=== PATIENT | female | born 1940 | race American Indian/Alaskan Native ===

== ENCOUNTER 2016-11-23 02:09 | Inpatient (IN) | payer MEDICARE ==
[2016-11-23] MEDS ORDERED: TYLENOL PO ONE (02:40)
[2016-11-23 03:11] LABS: Basophils % (Auto) 0.1 % (0.0-1.8); Hemoglobin 12.4 gm/dl (10.1-14.3); Mean Corpuscular HGB Conc 34 % (30-34); Mean Corpuscular Hemoglobin 31 pg (28-32); Mean Corpuscular Volume 93 fl (79-97); Platelet Count 235 K/mm3 (140-440); Red Blood Count 3.98 M/mm3 (3.65-5.03); Red Cell Distribution Width 13.4 % (13.2-15.2); White Blood Count 10.9 K/mm3 (4.5-11.0)
[2016-11-23 03:32] LABS: BUN/Creatinine Ratio 26.66; Blood Urea Nitrogen 24 mg/dL (7-17); Calcium 8.2 mg/dL (8.4-10.2); Carbon Dioxide 26 mmol/L (22-30); Chloride 91.3 mmol/L (98-107); Glucose 215 mg/dL (65-100); Potassium 3.7 mmol/L (3.6-5.0); Sodium 130 mmol/L (137-145)
[2016-11-23 03:33] LABS: Anion Gap 16 mmol/L
[2016-11-23 12:31] LABS: Bilirubin,Urine NEG (Negative); Blood,Urine MOD (Negative); Ketones,Urine NEG (Negative); Leukocyte Esterase,Urine LG (Negative); Mucus,Urine 2+ /HPF; Nitrite,Urine NEG (Negative); Urobilinogen,Urine < 2.0 mg/dL (<2.0)
[2016-11-23 12:48] LABS: WBC,Urine > 182.0 /HPF (0.0-6.0)
[2016-11-23] MEDS ORDERED: ROCEPHIN/NS 1 GM/50 ML 50 ML IV ONE (12:56)
[2016-11-23] MEDS ORDERED: NACL 0.9% 1000 ML IV ONE (12:57)
--- NOTE | 2016-11-23 12:58 | Emergency Department Report ---
HPI - General Chief Complaint: Dizziness Time Seen by Provider: 11/23/16 12:42 - HPI HPI: Chief complaint: "I have a bladder infection" HPI: Patient is a 76-year-old female with a history of hypertension and diabetes who presents with frequency and urgency and right lower quadrant pain along with lightheadedness on standing for the last 4 days. Patient states she has lost weight over the last 2 weeks and has had a decreased appetite for the last week. Patient also states she's had intermittent lip swelling and facial swelling as well as urticarial rashes to her legs and torso. Patient is on lisinopril. Patient is not currently having a rash or swelling. Patient has a slight nonproductive cough and does continue to smoke although less than usual. Patient does not have any chest pain. Patient has felt lightheaded on standing for the last 4 days. There has been no vomiting or diarrhea. Mode of arrival: [private car] Source: [Patient] [old chart] [family member] Began: over the last 2 weeks Duration: Dysuria and freq over the last week Context: patient is an insulin dependent diabetic Quality: RLQ pain which has resolved Severity: 0 out of 10 Improved with:nothing Worsened with: standing worsens dizziness Associated signs and symptoms: Fever, decreased appetite, lightheadedness, generalized malaise, weight loss, frequency and urgency. Urticarial rash which has resolved as well as occasional angioedema of the face. ED Past Medical Hx - Past Medical History Hx Hypertension: Yes Hx Diabetes: Yes Hx Arthritis: Yes Additional medical history: Hypercholesterolemia - Surgical History Additional Surgical History: Ectopic - Social History Smoking Status: Current Every Day Smoker Substance Use Type: None - Medications Home Medications: Home Medications Medication Instructions Recorded Confirmed Last Taken Type Lisinopril [Zestril TAB] 20 mg PO DAILY 12/20/13 11/23/16 04/20/15 History Pravastatin Sodium [Pravastatin] 10 mg PO HS 12/20/13 11/23/16 04/20/15 History Sitagliptin Phosphate [Januvia] 100 mg PO DAILY 12/20/13 11/23/16 04/20/15 History amLODIPine [Norvasc] 5 mg PO DAILY 12/20/13 11/23/16 04/20/15 History Aspirin [Aspirin BABY CHEW TAB] 81 mg PO DAILY 04/20/15 11/23/16 04/20/15 22:35 History Hydrochlorothiazide [Hctz] 25 mg PO QDAY 04/20/15 11/23/16 04/20/15 History Insulin Detemir [Levemir Flextouch] 21 unit SQ QHS 04/20/15 11/23/16 04/20/15 History ED Review of Systems ROS: Stated complaint: LIGHTHEADED/DIZZINESS Other details as noted in HPI ROS Constitutional: No fever ENT: No uri symptoms Cardiovascular: No chest pain Respiratory: No sob or cough GI: No vomiting or diarrhea : See HPI Skin: See HPI Neuro: No focal weakness or numbness Psych: No depression Jaime/lymph: No edema Physical Exam - Physical Exam Vital Signs: Vital Signs 11/23/16 11/23/16 11/23/16 02:26 05:49 11:47 Temperature 101.9 F H 98.1 F Pulse Rate 74 75 Respiratory 18 15 Rate Blood Pressure 127/67 Blood Pressure 97/53 [Left] O2 Sat by Pulse 100 96 Oximetry Physical Exam: GENERAL: The patient is a thin elderly -[place] female no acute distress. Patient is slightly orthostatic and dizzy on standing. HEENT: Normocephalic. Atraumatic. Extraocular motions are intact. Patient has moist mucous membranes. NECK: Supple. No meningitic signs are noted. There is no adenopathy noted. CHEST/LUNGS: Clear to auscultation. There is no respiratory distress noted. HEART/CARDIOVASCULAR: Regular. There is no tachycardia. There is no gallop rub or murmur. ABDOMEN: Abdomen is soft, nontender. Patient has normal bowel sounds. There is no abdominal distention. SKIN: There is no rash. There is no edema. There is no diaphoresis. NEURO: The patient is awake, alert, and oriented. The patient is cooperative. The patient has no focal neurologic deficits. The patient has normal speech. MUSCULOSKELETAL: There is no tenderness or deformity. There is no limitation range of motion. There is no evidence of acute injury. ED Course Vital Signs 11/23/16 11/23/16 11/23/16 02:26 05:49 11:47 Temperature 101.9 F H 98.1 F Pulse Rate 74 75 Respiratory 18 15 Rate Blood Pressure 127/67 Blood Pressure 97/53 [Left] O2 Sat by Pulse 100 96 Oximetry - Reevaluation(s) Reevaluation #1: 11/23/16 13:09 Patient given a liter of normal saline, a urine culture will be collected and given a gram of IV Rocephin. ED Medical Decision Making - Lab Data Result diagrams: 11/23/16 02:58 11/23/16 02:58 Laboratory Tests 11/23/16 11/23/16 11/23/16 02:58 05:45 08:34 Calcium 8.2 L Troponin T < 0.010 < 0.010 < 0.010 Laboratory Tests 11/23/16 12:02 Ur Leukocyte Esterase Lg Urine WBC (Auto) > 182.0 H Urine RBC (Auto) 24.0 Urine WBC Clumps 3+ Urine Mucus 2+ - EKG Data -: EKG Interpreted by Me EKG shows normal: sinus rhythm Rate: normal (87) - EKG Data When compared to previous EKG there are: no significant change Interpretation: other (possible left atrial enlargement) Critical care attestation.: If time is entered above; I have spent that time in minutes in the direct care of this critically ill patient, excluding procedure time. ED Disposition Clinical Impression: Urinary tract infection Qualifiers: Urinary tract infection type: acute pyelonephritis Qualified Code(s): N10 - Acute pyelonephritis Disposition: OP ADMITTED IP TO THIS HOSP Is pt being admited?: Yes Does the pt Need Aspirin: Yes Condition: Fair Time of Disposition: 13:11 (admit to the hospitalist)
[2016-11-23] MEDS ORDERED: ASPIRIN PO ONE (13:12)
--- NOTE | 2016-11-23 13:27 | History and Physical Report ---
History of Present Illness Date of examination: 11/23/16 Date of admission: 11/23/16 Chief complaint: Pain in the RT side for 4 days History of present illness: Miss Palencia is a 76 yo AAF who presented to the ER with a 4 day h/o sticking pain in the RT side; no fever; urinary frequency but no burning; no nausea or vomiting; she was seen in the ER and was noted to have a fever and U/A suggestive of UTI; she was given IV rocephin Past History Past Medical History: diabetes, hypertension, hyperlipidemia Past Surgical History: Other (ectopic ) Social history: smoking, full code. denies: alcohol abuse, prescription drug abuse, IV drug use Family history: hypertension Medications and Allergies Allergies Allergy/AdvReac Type Severity Reaction Status Date / Time bee venom (honey bee) Allergy Anaphylaxis Verified 07/05/15 13:30 iodine Allergy Swelling Verified 07/05/15 13:30 Penicillins Allergy Rash Verified 07/05/15 13:30 Home Medications Medication Instructions Recorded Confirmed Last Taken Type Lisinopril [Zestril TAB] 20 mg PO DAILY 12/20/13 11/23/16 04/20/15 History Pravastatin Sodium [Pravastatin] 10 mg PO HS 12/20/13 11/23/16 04/20/15 History Sitagliptin Phosphate [Januvia] 100 mg PO DAILY 12/20/13 11/23/16 04/20/15 History amLODIPine [Norvasc] 5 mg PO DAILY 12/20/13 11/23/16 04/20/15 History Aspirin [Aspirin BABY CHEW TAB] 81 mg PO DAILY 04/20/15 11/23/16 04/20/15 22:35 History Hydrochlorothiazide [Hctz] 25 mg PO QDAY 04/20/15 11/23/16 04/20/15 History Insulin Detemir [Levemir Flextouch] 21 unit SQ QHS 04/20/15 11/23/16 04/20/15 History Active Meds: Active Medications Ceftriaxone Sodium (Rocephin/Ns 1 Gm/50 Ml) 50 mls @ 100 mls/hr IV ONCE ONE Stop: 11/23/16 13:25 Review of Systems All systems: negative Constitutional: no weight loss, no weight gain, no fever, no chills, no sweats Ears, nose, mouth and throat: no ear pain, no ear discharge, no tinnitis, no decreased hearing Breasts: normal Cardiovascular: no chest pain, no orthopnea, no palpitations Respiratory: no cough, no cough with sputum, no excessive sputum, no hemoptysis , no shortness of breath Gastrointestinal: other (as in [facility]PC) Genitourinary Female: no urinary frequency, no urgency Rectal: no pain, no incontinence, no bleeding Musculoskeletal: no neck stiffness, no neck pain, no shooting arm pain, no arm numbness/tingling, no low back pain Integumentary: no rash, no pruritis, no redness, no sores Neurological: no head injury, no transient paralysis, no paralysis, no weakness Psychiatric: no anxiety, no memory loss, no change in sleep habits, no sleep disturbances Endocrine: no cold intolerance, no heat intolerance, no polyphagia, no excessive thirst, no polydipsia, no polyuria Hematologic/Lymphatic: no easy bruising, no easy bleeding Allergic/Immunologic: angioedema, other (reported that last week she has swelling of her lips and mouth for several days with hives; now better ) Exam - Constitutional Vitals: Temp Pulse Resp BP Pulse Ox 98.1 F 75 18 97/53 100 11/23/16 05:49 11/23/16 05:49 11/23/16 12:53 11/23/16 05:49 11/23/16 12:53 General appearance: Present: no acute distress (pleasant) - EENT Eyes: Present: PERRL, EOM intact. Absent: scleral icterus ENT: hearing intact, clear oral mucosa, no oropharyngeal erythema, no poor dentition - Neck Neck: Present: supple, normal ROM. Absent: enlarged thyroid, masses or JVD - Respiratory Respiratory effort: normal Respiratory: negative: diminished, rales, rhonchi, wheezing - Cardiovascular Rhythm: regular Heart Sounds: Present: S1 & S2. Absent: gallop - Extremities Extremities: no ischemia, pulses intact, pulses symmetrical, No edema Peripheral Pulses: within normal limits - Abdominal General gastrointestinal: Present: soft, non-tender, tender (RT renal angle tenderness) Female genitourinary: Present: deferred - Rectal Rectal Exam: deferred - Integumentary Integumentary: Present: clear - Musculoskeletal Musculoskeletal: strength equal bilaterally - Psychiatric Psychiatric: appropriate mood/affect, intact judgment & insight, cooperative - Neurologic Neurologic: CNII-XII intact, moves all extremities Results - Labs CBC & Chem 7: 11/23/16 02:58 11/23/16 02:58 Labs: Abnormal lab results 11/23/16 11/23/16 11/23/16 Range/Units 02:58 02:58 12:02 Lymph % (Auto) 8.9 L (13.4-35.0) % [place] % (Auto) 10.5 H (0.0-7.3) % Lymph # 1.0 L (1.2-5.4) K/mm3 [place] # 1.1 H (0.0-0.8) K/mm3 Seg Neutrophils % 80.5 H (40.0-70.0) % Seg Neutrophils # 8.8 H (1.8-7.7) K/mm3 Sodium 130 L (137-145) mmol/L Chloride 91.3 L (98-107) mmol/L BUN 24 H (7-17) mg/dL Glucose 215 H (65-100) mg/dL Calcium 8.2 L (8.4-10.2) mg/dL Urine WBC (Auto) > 182.0 H (0.0-6.0) /HPF - Imaging and Cardiology Chest x-ray: image reviewed (hyperinflation; no infiltrates ) Assessment and Plan 1. Rt pyelonephritis- will admit as an inpatient as more than 2 MN are required for treatment; f/u urine c/s; blood c/s; cont IV rocephin' IV morphine as needed for pain 2. DM 2 - restart insulin and oral regime; monitor accuchecks; sliding scale insulin; consistent carb diet 3. Benign HTN - restart home meds except lisinopril ( angioedema) 4. Nicotine dependence- smoking cessation; counselled about adverse effects and methods to stop; nicotine patch 5. Hyponatremia / hypochloremia- will start NS; monitor level; d/c HXTZ as per home med 6. Reosolved angioedema due to Lisinopril- d/c lisinopril as per home med; patient and daughter counselled 7. DVT prophylaxis- heparin
--- NOTE | 2016-11-23 13:53 | XRay Report ---
Single view chest: History: Cough. Findings: Borderline cardiomegaly. Trachea is midline. No consolidation, pneumothorax or pleural effusion. Impression: No acute cardiopulmonary findings.
[2016-11-23] MEDS ORDERED: REGLAN IV PRN (15:49)
[2016-11-23] MEDS ORDERED: ZOFRAN IV PRN (15:49)
[2016-11-23] MEDS ORDERED: D50W (25GM) IV PRN (15:49)
[2016-11-23] MEDS: NOVOLOG SUB-Q SCH ×2 (17:38→23:14)
[2016-11-23] MEDS: HABITROL TD SCH (18:00)
[2016-11-23] MEDS ORDERED: NON-FORMULARY (Pravastatin Sodium [Pravastatin] 10 MG) PO SCH (22:00)
[2016-11-23] MEDS ORDERED: INSULIN DETEMIR 21 UNIT SQ SCH (22:00)
--- NOTE | 2016-11-23 22:06 | Admit Criteria Form ---
Admission Criteria Documentation: PYELONEPHRITIS, ACUTE Clinical Indications for Admission to Inpatient Care (Place 'X' for any and all applicable criteria): Admission is indicated for ANY ONE of the following 1,2,3,4,5 [ X]I. Outpatient treatment has failed or is not feasible (eg, multidrug- resistant organism).5 [ ]II. beyond 24 weeks' gestation6 [ ]III. Hemodynamic instability [ ]IV. Immunocompromised state (eg, AIDS, diabetes, sickle cell disease) [ ]V. Known renal or urologic abnormalities (eg, indwelling catheter, structural abnormalities, renal calculi, urinary stent, previous urologic surgery) [ ]. Condition that requires drainage procedure, including ANY ONE of the following: [ ]a) Urinary obstruction [ ]b) Pyelitis [ ]c) Pyonephrosis [ ]d) Renal or perinephric abscess [ ]e) Emphysematous pyelonephritis 7 [ ]VII. Inpatient admission required rather than observation care (Also use Pyelonephritis, Acute: Observation Care Criteria as appropriate) because of ANY ONE of the following: [ ]a) High fever or infection requiring inpatient admission as indicated by ANY ONE of [id number] [ ]A. Documented bacteremia [ ]B. Temp>104.9 [id number] (oral) [ ]C. Temp>103.10F (oral) or <96.80F (rectal) that does not respond to all emergency treatment [ ]b) Acute renal failure [ ]c) Other significant finding or clinical condition judged not to be within the scope of observation care [ ]d) IV fluid to replace significant ongoing (eg, for over 24hrs) losses (> 3 L/m2 per day) [ ]e) Other condition,treatment or monitoring requiring inpatient admission The original [employer] content created by [employer] has been revised. The portions of the content which have been revised are identified through the use of italic text or in bold, and [employer] [facility] has neither reviewed nor approved the modified material. All other unmodified content is copyright [employer]. Please see references footnoted in the original [employer] edition 2016 Admission Criteria Met: Yes
[2016-11-23] MEDS: HEPARIN SUB-Q SCH (23:15)
[2016-11-23] MEDS: LEVEMIR SUB-Q SCH (23:16)
[2016-11-23] MEDS: ZOCOR PO SCH (23:17)
[2016-11-24] MEDS: NOVOLOG SUB-Q SCH ×4 (07:31→22:07)
[2016-11-24 07:45] LABS: Basophils % (Auto) 0.3 % (0.0-1.8); Eosinophils % (Auto) 0.2 % (0.0-4.3); Hematocrit 33.3 % (30.3-42.9); Hemoglobin 11.2 gm/dl (10.1-14.3); Mean Corpuscular HGB Conc 34 % (30-34); Mean Corpuscular Hemoglobin 31 pg (28-32); Mean Corpuscular Volume 92 fl (79-97); Platelet Count 226 K/mm3 (140-440); Red Blood Count 3.64 M/mm3 (3.65-5.03); Red Cell Distribution Width 13.7 % (13.2-15.2); White Blood Count 8.5 K/mm3 (4.5-11.0)
[2016-11-24 08:23] LABS: Anion Gap 17 mmol/L; BUN/Creatinine Ratio 27.14; Blood Urea Nitrogen 19 mg/dL (7-17); Carbon Dioxide 24 mmol/L (22-30); Chloride 99.7 mmol/L (98-107); Glucose 103 mg/dL (65-100); Potassium 3.8 mmol/L (3.6-5.0); Sodium 137 mmol/L (137-145)
[2016-11-24] MEDS: NORVASC PO SCH (09:41)
[2016-11-24] MEDS: ROCEPHIN/NS 1 GM/50 ML 50 ML IV SCH (09:53)
[2016-11-24] MEDS: TRADJENTA PO SCH (09:56)
[2016-11-24] MEDS: BABY ASPIRIN PO SCH (09:56)
[2016-11-24] MEDS: HABITROL TD SCH (09:57)
[2016-11-24] MEDS ORDERED: NON-FORMULARY (Sitagliptin Phosphate [Januvia] 100 MG) PO SCH (10:00)
[2016-11-24] MEDS: HEPARIN SUB-Q SCH ×2 (10:00→21:59)
[2016-11-24] MEDS: NACL 0.9% 1000 ML 1,000 ML IV SCH (10:07)
--- NOTE | 2016-11-24 11:32 | Progress Note ---
Assessment and Plan Assessment and plan: 1. Right pyelonephritis - UA suggestive of UTI, blood and urine cultures pending; continue Rocephin 2. Hypernatremia/hyperchloremia - resolved with IV fluids 3. Hypertension - lisinopril discontinued due to recent angioedema and started on amlodipine; monitor BP 4. Diabetes - continue long-acting insulin, Accu-Cheks and SSI as needed 5. Hyperlipidemia - on statin 6. Nicotine dependence - on nicotine patch; counseled regarding importance of quitting 7. DVT prophylaxis - heparin subcutaneous History Interval history: low grade fever this morning Hospitalist Physical - Constitutional Vitals: Temp Pulse Resp BP Pulse Ox 99.9 F H 72 16 104/54 96 11/24/16 08:01 11/24/16 08:01 11/24/16 08:01 11/24/16 09:41 11/24/16 08:01 General appearance: Present: no acute distress (pleasant) - EENT Eyes: Present: PERRL, EOM intact. Absent: scleral icterus, conjunctival injection - Neck Neck: Present: supple, normal ROM. Absent: masses or JVD - Respiratory Respiratory effort: normal Respiratory: bilateral: CTA, negative: rales, rhonchi, wheezing - Cardiovascular Rhythm: regular Heart Sounds: Present: S1 & S2. Absent: systolic murmur - Extremities Extremities: no ischemia - Abdominal General gastrointestinal: soft, non-tender, non-distended, normal bowel sounds - Psychiatric Psychiatric: cooperative - Neurologic Neurologic: CNII-XII intact, no focal deficits Results - Labs CBC & Chem 7: 11/24/16 07:21 11/24/16 07:21 Labs: Laboratory Last Values WBC 8.5 K/mm3 (4.5-11.0) 11/24/16 07:21 RBC 3.64 M/mm3 (3.65-5.03) L 11/24/16 07:21 Hgb 11.2 gm/dl (10.1-14.3) 11/24/16 07:21 Hct 33.3 % (30.3-42.9) 11/24/16 07:21 MCV 92 fl (79-97) 11/24/16 07:21 MCH 31 pg (28-32) 11/24/16 07:21 MCHC 34 % (30-34) 11/24/16 07:21 RDW 13.7 % (13.2-15.2) 11/24/16 07:21 Plt Count 226 K/mm3 (140-440) 11/24/16 07:21 Lymph % (Auto) 13.9 % (13.4-35.0) 11/24/16 07:21 [place] % (Auto) 9.7 % (0.0-7.3) H 11/24/16 07:21 Eos % (Auto) 0.2 % (0.0-4.3) 11/24/16 07:21 Baso % (Auto) 0.3 % (0.0-1.8) 11/24/16 07:21 Lymph # 1.2 K/mm3 (1.2-5.4) 11/24/16 07:21 [place] # 0.8 K/mm3 (0.0-0.8) 11/24/16 07:21 Eos # 0.0 K/mm3 (0.0-0.4) 11/24/16 07:21 Baso # 0.0 K/mm3 (0.0-0.1) 11/24/16 07:21 Seg Neutrophils % 75.9 % (40.0-70.0) H 11/24/16 07:21 Seg Neutrophils # 6.5 K/mm3 (1.8-7.7) 11/24/16 07:21 Sodium 137 mmol/L (137-145) D 11/24/16 07:21 Potassium 3.8 mmol/L (3.6-5.0) 11/24/16 07:21 Chloride 99.7 mmol/L (98-107) 11/24/16 07:21 Carbon Dioxide 24 mmol/L (22-30) 11/24/16 07:21 Anion Gap 17 mmol/L 11/24/16 07:21 BUN 19 mg/dL (7-17) H 11/24/16 07:21 Creatinine 0.7 mg/dL (0.7-1.2) 11/24/16 07:21 Estimated GFR > 60 ml/min 11/24/16 07:21 BUN/Creatinine Ratio 27.14 % 11/24/16 07:21 Glucose 103 mg/dL (65-100) H 11/24/16 07:21 POC Glucose 170 (70-105) H 11/24/16 10:58 Calcium 8.0 mg/dL (8.4-10.2) L 11/24/16 07:21 Troponin T < 0.010 ng/mL (0.00-0.029) 11/23/16 08:34 Urine Color [place] (Yellow) 11/23/16 12:02 Urine Turbidity Turbid (Clear) 11/23/16 12:02 Urine pH 5.0 (5.0-7.0) 11/23/16 12:02 Ur Specific [place] 1.014 (1.003-1.030) 11/23/16 12:02 Urine Protein 100 mg/dl mg/dL (Negative) 11/23/16 12:02 Urine Glucose (UA) Neg mg/dL (Negative) 11/23/16 12:02 Urine Ketones Neg mg/dL (Negative) 11/23/16 12:02 Urine Blood Mod (Negative) 11/23/16 12:02 Urine Nitrite Neg (Negative) 11/23/16 12:02 Urine Bilirubin Neg (Negative) 11/23/16 12:02 Urine Urobilinogen < 2.0 mg/dL (<2.0) 11/23/16 12:02 Ur Leukocyte Esterase Lg (Negative) 11/23/16 12:02 Urine WBC (Auto) > 182.0 /HPF (0.0-6.0) H 11/23/16 12:02 Urine RBC (Auto) 24.0 /HPF (0.0-6.0) 11/23/16 12:02 Urine WBC Clumps 3+ /HPF 11/23/16 12:02 Urine Mucus 2+ /HPF 11/23/16 12:02 - Imaging and Cardiology Chest x-ray: image reviewed (no acute process)
[2016-11-24] MEDS: TYLENOL PO PRN (18:49)
[2016-11-24] MEDS: LEVEMIR SUB-Q SCH (21:54)
[2016-11-24] MEDS: ZOCOR PO SCH (21:54)
[2016-11-25] MEDS: NACL 0.9% 1000 ML 1,000 ML IV SCH ×2 (02:14→14:45)
[2016-11-25] MEDS: NOVOLOG SUB-Q SCH ×4 (08:05→23:34)
[2016-11-25] MEDS: TRADJENTA PO SCH (09:26)
[2016-11-25] MEDS: NORVASC PO SCH (09:28)
[2016-11-25] MEDS: ROCEPHIN/NS 1 GM/50 ML 50 ML IV SCH (09:28)
[2016-11-25] MEDS: HABITROL TD SCH (09:28)
[2016-11-25] MEDS: BABY ASPIRIN PO SCH (09:28)
[2016-11-25] MEDS: HEPARIN SUB-Q SCH ×2 (09:47→22:59)
--- NOTE | 2016-11-25 11:38 | Progress Note ---
Assessment and Plan Assessment and plan: 1. Right pyelonephritis/cystitis - UA suggestive of UTI, urine culture growing GNR, blood cultures negative to date; continue Rocephin 2. Hypernatremia/hyperchloremia - resolved with IV fluids 3. Hypertension - lisinopril discontinued due to recent angioedema and started on amlodipine; monitor BP 4. Diabetes - continue long-acting insulin, Accu-Cheks and SSI as needed 5. Hyperlipidemia - on statin 6. Nicotine dependence - on nicotine patch; counseled regarding importance of quitting 7. DVT prophylaxis - heparin subcutaneous History Interval history: doing well, no complaints Hospitalist Physical - Constitutional Vitals: Temp Pulse Resp BP Pulse Ox 99.1 F 74 18 139/70 95 11/25/16 08:11 11/25/16 08:11 11/25/16 08:43 11/25/16 09:28 11/25/16 08:11 General appearance: Present: no acute distress (pleasant) - EENT Eyes: Present: PERRL, EOM intact - Neck Neck: Present: supple, normal ROM. Absent: masses or JVD - Respiratory Respiratory effort: normal Respiratory: bilateral: CTA, negative: rales, rhonchi, wheezing - Cardiovascular Rhythm: regular Heart Sounds: Present: S1 & S2. Absent: systolic murmur - Extremities Extremities: no ischemia - Abdominal General gastrointestinal: soft, non-tender, non-distended, normal bowel sounds - Integumentary Integumentary: Present: warm, dry. Absent: jaundice, rash - Psychiatric Psychiatric: cooperative - Neurologic Neurologic: CNII-XII intact, no focal deficits Results - Labs CBC & Chem 7: 11/24/16 07:21 11/24/16 07:21 Labs: Laboratory Last Values WBC 8.5 K/mm3 (4.5-11.0) 11/24/16 07:21 RBC 3.64 M/mm3 (3.65-5.03) L 11/24/16 07:21 Hgb 11.2 gm/dl (10.1-14.3) 11/24/16 07:21 Hct 33.3 % (30.3-42.9) 11/24/16 07:21 MCV 92 fl (79-97) 11/24/16 07:21 MCH 31 pg (28-32) 11/24/16 07:21 MCHC 34 % (30-34) 11/24/16 07:21 RDW 13.7 % (13.2-15.2) 11/24/16 07:21 Plt Count 226 K/mm3 (140-440) 11/24/16 07:21 Lymph % (Auto) 13.9 % (13.4-35.0) 11/24/16 07:21 [place] % (Auto) 9.7 % (0.0-7.3) H 11/24/16 07:21 Eos % (Auto) 0.2 % (0.0-4.3) 11/24/16 07:21 Baso % (Auto) 0.3 % (0.0-1.8) 11/24/16 07:21 Lymph # 1.2 K/mm3 (1.2-5.4) 11/24/16 07:21 [place] # 0.8 K/mm3 (0.0-0.8) 11/24/16 07:21 Eos # 0.0 K/mm3 (0.0-0.4) 11/24/16 07:21 Baso # 0.0 K/mm3 (0.0-0.1) 11/24/16 07:21 Seg Neutrophils % 75.9 % (40.0-70.0) H 11/24/16 07:21 Seg Neutrophils # 6.5 K/mm3 (1.8-7.7) 11/24/16 07:21 Sodium 137 mmol/L (137-145) D 11/24/16 07:21 Potassium 3.8 mmol/L (3.6-5.0) 11/24/16 07:21 Chloride 99.7 mmol/L (98-107) 11/24/16 07:21 Carbon Dioxide 24 mmol/L (22-30) 11/24/16 07:21 Anion Gap 17 mmol/L 11/24/16 07:21 BUN 19 mg/dL (7-17) H 11/24/16 07:21 Creatinine 0.7 mg/dL (0.7-1.2) 11/24/16 07:21 Estimated GFR > 60 ml/min 11/24/16 07:21 BUN/Creatinine Ratio 27.14 % 11/24/16 07:21 Glucose 103 mg/dL (65-100) H 11/24/16 07:21 POC Glucose 71 (70-105) 11/25/16 06:17 Calcium 8.0 mg/dL (8.4-10.2) L 11/24/16 07:21 Troponin T < 0.010 ng/mL (0.00-0.029) 11/23/16 08:34 Urine Color [place] (Yellow) 11/23/16 12:02 Urine Turbidity Turbid (Clear) 11/23/16 12:02 Urine pH 5.0 (5.0-7.0) 11/23/16 12:02 Ur Specific [place] 1.014 (1.003-1.030) 11/23/16 12:02 Urine Protein 100 mg/dl mg/dL (Negative) 11/23/16 12:02 Urine Glucose (UA) Neg mg/dL (Negative) 11/23/16 12:02 Urine Ketones Neg mg/dL (Negative) 11/23/16 12:02 Urine Blood Mod (Negative) 11/23/16 12:02 Urine Nitrite Neg (Negative) 11/23/16 12:02 Urine Bilirubin Neg (Negative) 11/23/16 12:02 Urine Urobilinogen < 2.0 mg/dL (<2.0) 11/23/16 12:02 Ur Leukocyte Esterase Lg (Negative) 11/23/16 12:02 Urine WBC (Auto) > 182.0 /HPF (0.0-6.0) H 11/23/16 12:02 Urine RBC (Auto) 24.0 /HPF (0.0-6.0) 11/23/16 12:02 Urine WBC Clumps 3+ /HPF 11/23/16 12:02 Urine Mucus 2+ /HPF 11/23/16 12:02
[2016-11-25] MEDS: ZOCOR PO SCH (22:55)
[2016-11-25] MEDS: LEVEMIR SUB-Q SCH (22:59)
[2016-11-26] MEDS: NACL 0.9% 1000 ML 1,000 ML IV SCH (05:35)
[2016-11-26] MEDS: NOVOLOG SUB-Q SCH ×2 (08:19→12:28)
[2016-11-26] MEDS: TYLENOL PO PRN (08:25)
[2016-11-26] MEDS: BABY ASPIRIN PO SCH (10:52)
[2016-11-26] MEDS: TRADJENTA PO SCH (10:52)
[2016-11-26] MEDS: HEPARIN SUB-Q SCH (10:52)
[2016-11-26] MEDS: NORVASC PO SCH (10:52)
[2016-11-26] MEDS: HABITROL TD SCH (10:53)
[2016-11-26] MEDS: ROCEPHIN/NS 1 GM/50 ML 50 ML IV SCH (10:53)
--- NOTE | 2016-11-26 12:50 | Discharge Summary ---
Providers - Providers Date of Admission: 11/23/16 13:11 Date of discharge: 11/26/16 Attending physician: MAX AMEZCUA Primary care physician: NORMA BREEN Hospitalization Condition: Fair Hospital course: HPI: Miss Palencia is a 76 yo AAF who presented to the ER with a 4 day h/o sticking pain in the RT side; no fever; urinary frequency but no burning; no nausea or vomiting; she was seen in the ER and was noted to have a fever and U/A suggestive of UTI; she was started on IV rocephin in the ER. Diacharge Diagnosis amd management per problem: 1. Right pyelonephritis/cystitis - UA was suggestive of UTI, urine culture growing GNR, blood cultures negative to date; symptom improved with iv Rocephin. discharged with po levaquin. 2. Hypernatremia/hyperchloremia - resolved with IV fluids 3. Hypertension - lisinopril discontinued due to recent angioedema and started on amlodipine; Will continue amlodipine and HCTZ 4. Diabetes - continue long-acting insulin 5. Hyperlipidemia - on statin 6. Nicotine dependence - on nicotine patch; counseled regarding importance of quitting Disposition: DC/TX HOME UNDER HOME HEALTH Time spent for discharge: 36 minutes Core Measure Documentation - Palliative Care Palliative Care/ Comfort Measures: Not Applicable - Core Measures Any of the following diagnoses?: none Exam - Physical Exam Narrative exam: General appearance: Present: no acute distress (pleasant) - EENT Eyes: Present: PERRL, EOM intact - Neck Neck: Present: supple, normal ROM. Absent: masses or JVD - Respiratory Respiratory effort: normal Respiratory: bilateral: CTA, negative: rales, rhonchi, wheezing - Cardiovascular Rhythm: regular Heart Sounds: Present: S1 & S2. Absent: systolic murmur - Extremities Extremities: no ischemia - Abdominal General gastrointestinal: soft, non-tender, non-distended, normal bowel sounds - Integumentary Integumentary: Present: warm, dry. Absent: jaundice, rash - Psychiatric Psychiatric: cooperative - Neurologic Neurologic: CNII-XII intact, no focal deficits - Constitutional Vitals: Temp Pulse Resp BP Pulse Ox 98.1 F 69 15 154/72 96 11/26/16 07:45 11/26/16 07:45 11/26/16 07:45 11/26/16 10:52 11/26/16 07:45 Plan Activity: advance as tolerated, fall precautions Weight Bearing Status: Non-Weight Bearing Diet: low cholesterol, low salt Follow up with: NORMA BREEN MD [Primary Care Provider] - 3-5 Days Prescriptions: Hydrochlorothiazide [HCTZ] 50 mg PO DAILY #30 tablet Levofloxacin [Levaquin] 750 mg PO QDAY #5 tablet
[2016-11-26 13:45] VITALS: BP 158/71
--- NOTE | 2016-11-29 08:09 | Query-Infection ---
"Deaamy Henderson Date:_11/29/16 Combine Mechanic/CDS:Simon/Anshul Zhou Phone#:[phone] Exercise your independent professional judgment when responding to this query. Questions asked do not imply a particular answer is desired or expected. We greatly appreciate your clarification on this issue. Clinical Documentation States: 76 Y/O Female admitted on 11/23/16 with Hx. of DM, HTN presents with 4 day history of sticking pain in the right side, increased urinary frequency, fever in ER. Clinical findings show: (please check applicable parameters) Infection, known /suspected, with some of the following indicators; Specify the infection: Pyelonephritis/UTI Temp: 101.9 HR: 100 RR: 26 Given IV Ceftriaxone 3 General parameters [x] Fever (core temp >38.30C or 100.40F) [ ] Hypothermia (core temp <36C) [x] Heart rate >90 bpm [x] Tachypnea: >20 bpm or pCO2 < 32 mmHg [ ] Altered mental status [ ] Significant edema / +ve fluid balance (>20 ml/kg 24 h) [ ] Hyperglycemia (Bl. glucose >110 mg/dl) w/o diabetes Inflammatory parameters [ ] Leukocytosis (white blood cell count >12,000/l) [ ] Leukopenia (white blood cell count <4,000/l) [ ] Bandemia (immature WBC > 10%) [ ] Leucocyte Left Shift [ ] Plasma procalcitonin>2 SD above the normal value Hemodynamic and tissue perfusion parameters [ ] Arterial hypotension(SBP <90 mmHg, MAP <70 mmHg,or a SBP drop >40 mmHg in adults) [ ] Hyperlactatemia (>3 mmol/l) [ ] Anion Gap (> 11mEG/l) [ ] Decreased capillary refill or mottling Organ dysfunction parameters [ ] Arterial hypoxemia (PaO2/FIO2 <300) [ ] Creatinine increase =0.5 mg/dl [ ] Acute oliguria (urine output <0.5 ml | kg |h or 45 mM/l for at least 2 hrs) [ ] Coagulation abnormalities (INR >1.5 or activated partial thromboplastin time >60 s) [ ] Ileus (absent roya wel sounds) [ ] Thrombocytopenia (platelet count <100,000/l) [ ] Hyperbilirubinemia (plasma total bilirubin >4 mg/dl) According to the clinical indications above, can Bacteremia be further specified? If so, please indicate below and in your Progress Notes and/ or Discharge Summary. Indicate if the condition was present on admission. PHYSICIAN RESPONSE: [x] Sepsis [ ] Severe Sepsis [ ] Septic Shock [ ] Septicemia [ ] Sepsis now resolved [ ] SIRS due to non-infectious cause with organ dysfunction [ ] SIRS due to non-infectious cause without organ dysfunction [ ] Other: [ ] Comment/Explanation: Present on Admission: [x ] Yes (Y) [ ] Clinically undeterminable (W) [ ] No (N) [ ] Ruled Out Please also document response in your Progress Notes and/or Discharge Summary and indicate if the condition was present on admission Notes: SIRS/ SIRS WITH ORGAN DYSFUNCTION Systemic inflammatory response syndrome (SIRS) generally refers to the systemic response to trauma/ayon or other insult such as Acute Myocardial Infarction, Acute Pancreatitis, and Major Surgery with symptoms including fever, tachycardia , tachypnea, and leukocytosis (1). BACTEREMIA Presence of viable bacteria in the circulating blood (2). This term is reserved for patients that do not manifest above SIRS response. SEPTICEMIA Generally refers to a systemic disease associated with the presence of pathological microorganisms or toxins in the blood, which can include bacteria, viruses, fungi or other organisms (1). SEPSIS Generally refers to SIRS due infection (1). SEVERE SEPSIS Generally refers to sepsis associated with acute organ dysfunction (1). SEPTIC SHOCK Generally refers to circulatory failure associated with severe sepsis (2), and defined as hypotension or hypoperfusion despite adequate fluid resuscitation (1 hour) (3). REFERENCES: 1. [place] [employer]/Society of Critical Care Medicine Consensus Conference. Definitions for sepsis and organ failure and guidelines for the use of innovative therapies in sepsis. Critical Care Med 1992;20:864 - 74. 2. Zohaib lyons MM, Carol Ann MP, Bird REMBERTO, Arias E, Clifford D, Gregory D, Manpreet J, Joanna SM , Ron ZIMMER, Clara G; International Sepsis Definitions Conference. 2001 SCCM/ESICM/ACCP/ATS/SIS International Sepsis Definitions Conference. Intensive Care Med. 2003 Apr;29(4):530-8. Epub 2002Jan 28. Review. PubMed PMID:[id number] 3. ICD-9-CM Official Guidelines for Coding and Reporting 4. Medscape Drugs, Diseases and Procedures references 5. [employer] Textbook of Internal Medicine. 18th Edition MTDD"
--- NOTE | 2016-11-29 08:16 | Query- Nutrition ---
Deaamy Henderson Date:_11/29/16 Sub Plant Manager/CDS:Simon/Anshul Zhou Phone#:[phone] Exercise your independent professional judgment when responding to query. Questions asked do not imply a particular answer is desired or expected. We greatly appreciate your clarification on this issue. Clinical Documentation States: 76 Y/O Female admitted on 11/23/16 with Hx. of DM, HTN presented with 4 day history of sticking pain in the right side, increased urinary frequency with fever in the ER. Decreased appetite and unintentional weight loss noted in Emergency physician report Smoking Cessation discussed Clinical Findings Show: Lymphocytes: 1000 No albumin tested Please select the most appropriate option 3 [] Mild Malnutrition [] Mild - Moderate Malnutrition [x] Moderate - Severe Malnutrition [] Severe Malnutrition Serum Albumin 2.8 to 3.4 g/dl or Pre-albumin 5 to 17 mg/dl1,2 Inadequate nutritional intake1,2,3,4 NPO > 5 days Weight loss: 5% in 1 month or 7.5% in 3 months or 10% in 6 months1, 3,4 BMI 16 to 18.4 or Weight <90% of ideal body weight1,2,3,4 Serum Albumin < 2.8 g/ dl1,2 Lymphocytes < 1500/ L2 Inadequate nutritional intake3, high stress e.g. major trauma, sepsis,pancreatitis, ayon etc. Decubitus ulcers1,2, , skin breakdown2, easy hair pluckability2 Weight <80% standard for height2 Triceps skin fold <3 mm2 Mid-arm muscle circumference <15 cm2 Creatinine-height index <60% standard2 [ ] Cachexia [ ] Emaciated w/Malnutrition [ ] Other: [ ] Unable to determine [ ] Comment/Explanation: Present on Admission: [x ] Yes (Y) [ ] Clinically undeterminable (W) [ ] No (N) Please also document response in your Progress Notes and/or Discharge Summary and indicate if the condition was present on admission. MTDD
== END 2016-11-26 15:03 | disposition home health service (06) | DRG 871 ==
LOC: ED 02:09 → 3A 13:11
PROVIDERS: ADMIT Hospitalist; ATTEND Internal Medicine
DX: A41.9 Sepsis, unspecified organism (principal); E43 Unspecified severe protein-calorie malnutrition; N10 Acute pyelonephritis; E87.1 Hypo-osmolality and hyponatremia; I10 Essential (primary) hypertension; E11.9 Type 2 diabetes mellitus without complications; M19.90 Unspecified osteoarthritis, unspecified site; E78.00 Pure hypercholesterolemia, unspecified; E78.5 Hyperlipidemia, unspecified; F17.200 Nicotine dependence, unspecified, uncomplicated; Z71.6 Tobacco abuse counseling; Z79.82 Long term (current) use of aspirin; Z79.4 Long term (current) use of insulin; Z79.899 Other long term (current) drug therapy; Z82.49 Family history of ischemic heart disease and other diseases of the circulatory system; Z88.0 Allergy status to penicillin; Z88.8 Allergy status to other drugs, medicaments and biological substances; Z91.030 Bee allergy status
CPT/HCPCS: 36415; 71010; 80048; 81001; 82962; 84484; 85025; 87040; 87076; 87086; 87186; 93005; 93010; 96374; J0696; J1644; J1815; J1818; J7030

== ENCOUNTER 2017-12-25 11:51 | Emergency (ER) | payer MEDICARE ==
[2017-12-25] MEDS ORDERED: ZOFRAN IV ONE (14:19)
[2017-12-25] MEDS ORDERED: TORADOL IV ONE (14:19)
[2017-12-25] MEDS ORDERED: NACL 0.9% 1000 ML 1,000 ML IV ONE (14:19)
--- NOTE | 2017-12-25 14:19 | Emergency Department Report ---
Blank Doc - Documentation Documentation: She is a 77-year-old female with a history of diabetes who is presenting with abdominal crampiness for approximately 2 weeks with nausea vomiting. Patient states most of her discomfort is on the right side. Patient has a history of [place] cystectomy. Patient will be moved to a treatment area to receive IV fluids and nausea medicine and we will collect laboratory studies and do a CT of the pelvis
[2017-12-25 15:06] LABS: Hemoglobin 14.8 gm/dl (10.1-14.3); Red Blood Count 4.73 M/mm3 (3.65-5.03)
[2017-12-25 15:07] LABS: Basophils % (Auto) 0.6 % (0.0-1.8); Eosinophils # (Auto) 0.1 K/mm3 (0.0-0.4); Eosinophils % (Auto) 1.2 % (0.0-4.3); Lymphocytes # (Auto) 2.3 K/mm3 (1.2-5.4); Lymphocytes % (Auto) 35.1 % (13.4-35.0); Mean Corpuscular HGB Conc 34 % (30-34); Mean Corpuscular Hemoglobin 31 pg (28-32); Mean Corpuscular Volume 93 fl (79-97); Monocytes # (Auto) 0.4 K/mm3 (0.0-0.8); Monocytes % (Auto) 5.8 % (0.0-7.3); Platelet Count 232 K/mm3 (140-440); Red Cell Distribution Width 13.3 % (13.2-15.2)
--- NOTE | 2017-12-25 15:10 | Cat Scan Report ---
FINAL REPORT EXAM: CT ABDOMEN PELVIS WO CON HISTORY: Abdominal Pain TECHNIQUE: Noncontrast CT of the abdomen and pelvis performed. No IV or gastrointestinal contrast was administered. Coronal and sagittal reformatted images were obtained. PRIORS: None. FINDINGS: The visualized aspects of the lung bases are clear. Within the limitations of a non-enhanced study, the visualized liver, spleen, pancreas, adrenal glands and kidneys demonstrate no significant abnormalities. 11 mm low-density right renal lesion is likely a cyst. There is a punctate nonobstructing right intrarenal calculus. There is no hydronephrosis or obstructive uropathy seen. There are aortoiliac atherosclerotic calcifications. There is no abdominal aortic aneurysm. There is prominent stool throughout the colon. Correlate for constipation. There is no evidence of intestinal obstruction. The appendix is not specifically identified. There is diverticulosis involving the left colon. There is no evidence of acute diverticulitis. There is no free intraperitoneal air. There are no abnormal fluid collections seen. The bladder is unremarkable. There is no abnormal pelvic mass or fluid collections seen. There are lumbar degenerative changes. IMPRESSION: There is prominent stool throughout colon. Correlate for constipation. Diverticulosis. No acute diverticulitis seen. Single punctate nonobstructing right intrarenal calculus. No hydronephrosis or acute obstructive uropathy seen.
--- NOTE | 2017-12-25 15:19 | Emergency Department Report ---
ED Dizziness HPI - General Chief Complaint: Dizziness Stated Complaint: DIZZY, ABD PN Time Seen by Provider: 12/25/17 14:07 Source: patient, family Mode of arrival: Ambulatory Limitations: No Limitations - History of Present Illness Initial Comments: Patient had complained of dizziness 1 week with nausea times one week. She said she is having loss of bladder control. She is also complaining of 2 weeks of abdominal cramping and urinary incontinence and denies any diarrhea she denies any fever or chills. Denies any pain to her abdomen now. Denies any headache or blurred vision. Denies any neck pain or back pain. She says she was constipated and she was given a laxative and she passed a lot of stool. Ports bowel movement are normal without any bleeding. Denies any numbness or tingling to extremities. Patient is a diabetic and she is on medication.. He also has a history of high blood pressure and high cholesterol. Dizziness is worse with moving around and better with rest and MD Complaint: dizziness, other (nausea with abdominal cramping.) Onset/Timin -: week(s) Timing: gradual onset, waxing/waning Description: lightheadedness History of Same: Yes History of Trauma: No Severity: moderate Improves With: remaining still Worsens With: movement Associated Symptoms: other (nausea and loss of bladder control. Abdominal cramping on and off). denies: ataxia, chest pain, confusion, cough, diaphoresis , fever/chills, loss of appetite, malaise, rash, seizure, shortness of breath, syncope, weakness - Related Data Home Medications Medication Instructions Recorded Confirmed Last Taken Pravastatin Sodium [Pravastatin] 10 mg PO HS 12/20/13 11/23/16 04/20/15 Sitagliptin Phosphate [Januvia] 100 mg PO DAILY 12/20/13 11/23/16 04/20/15 amLODIPine [Norvasc] 5 mg PO DAILY 12/20/13 11/23/16 04/20/15 Aspirin [Aspirin BABY CHEW TAB] 81 mg PO DAILY 04/20/15 11/23/16 04/20/15 22:35 Insulin Detemir [Levemir Flextouch] 21 unit SQ QHS 04/20/15 11/23/16 04/20/15 Previous Rx's Medication Instructions Recorded Last Taken Type Hydrochlorothiazide [HCTZ] 50 mg PO DAILY #30 tablet 11/26/16 Unknown Rx Levofloxacin [Levaquin] 750 mg PO QDAY #5 tablet 11/26/16 Unknown Rx Bisacodyl [Dulcolax tab] 10 mg PO DAILY PRN 2 Days #4 tab 12/25/17 Unknown Rx Meclizine [Antivert] 25 mg PO Q8H PRN #12 tablet 12/25/17 Unknown Rx Ondansetron [Zofran Odt] 4 mg PO Q8HR PRN #12 tab.rapdis 12/25/17 Unknown Rx traMADol [Ultram] 50 mg PO Q6HR PRN #12 tablet 12/25/17 Unknown Rx Allergies Allergy/AdvReac Type Severity Reaction Status Date / Time iodine Allergy Swelling Verified 07/05/15 13:30 lisinopril Allergy Rash Verified 11/23/16 14:01 Penicillins Allergy Rash Verified 07/05/15 13:30 venom-honey bee Allergy Anaphylaxis Verified 07/05/15 13:30 [bee venom (honey bee)] ED Review of Systems ROS: Stated complaint: DIZZY, ABD PN Other details as noted in HPI Comment: All other systems reviewed and negative Constitutional: no symptoms reported Eyes: denies: eye pain, eye discharge ENT: denies: ear pain, throat pain, epistaxis, congestion Respiratory: no symptoms reported Cardiovascular: denies: chest pain, palpitations, dyspnea on exertion, edema, syncope, paroxysmal nocturnal dyspnea Gastrointestinal: abdominal pain. denies: nausea, vomiting, diarrhea, constipation, hematemesis, melena, hematochezia Genitourinary: denies: dysuria Musculoskeletal: denies: back pain, joint swelling, arthralgia, myalgia Skin: denies: rash, lesions, change in hair/nails, pruritus, other Neurological: other (dizziness). denies: headache, weakness, numbness, paresthesias, confusion, abnormal gait ED Past Medical Hx - Past Medical History Previous Medical History?: Yes Hx Hypertension: Yes Hx Diabetes: Yes Hx GERD: Yes Hx Arthritis: Yes (legs) Hx HIV: No Additional medical history: Hypercholesterolemia,vertigo - Surgical History Past Surgical History?: Yes Additional Surgical History: Ectopic - Family History Family history: hypertension - Social History Smoking Status: Current Every Day Smoker Substance Use Type: None - Medications Home Medications: Home Medications Medication Instructions Recorded Confirmed Last Taken Type Pravastatin Sodium [Pravastatin] 10 mg PO HS 12/20/13 11/23/16 04/20/15 History Sitagliptin Phosphate [Januvia] 100 mg PO DAILY 12/20/13 11/23/16 04/20/15 History amLODIPine [Norvasc] 5 mg PO DAILY 12/20/13 11/23/16 04/20/15 History Aspirin [Aspirin BABY CHEW TAB] 81 mg PO DAILY 04/20/15 11/23/16 04/20/15 22:35 History Insulin Detemir [Levemir Flextouch] 21 unit SQ QHS 04/20/15 11/23/16 04/20/15 History Hydrochlorothiazide [HCTZ] 50 mg PO DAILY #30 tablet 11/26/16 Unknown Rx Levofloxacin [Levaquin] 750 mg PO QDAY #5 tablet 11/26/16 Unknown Rx Bisacodyl [Dulcolax tab] 10 mg PO DAILY PRN 2 Days #4 tab 12/25/17 Unknown Rx Meclizine [Antivert] 25 mg PO Q8H PRN #12 tablet 12/25/17 Unknown Rx Ondansetron [Zofran Odt] 4 mg PO Q8HR PRN #12 tab.rapdis 12/25/17 Unknown Rx traMADol [Ultram] 50 mg PO Q6HR PRN #12 tablet 12/25/17 Unknown Rx ED Physical Exam - General Limitations: No Limitations General appearance: alert, in no apparent distress - Head Head exam: Present: atraumatic, normocephalic, normal inspection, other - Eye Eye exam: Present: normal appearance, PERRL, EOMI. Absent: nystagmus, periorbital swelling (normal exam), periorbital tenderness Pupils: Present: normal accommodation - ENT ENT exam: Present: normal exam, normal orophraynx, mucous membranes moist, TM's normal bilaterally, normal external ear exam - Neck Neck exam: Present: normal inspection, full ROM, other (no C-spine tenderness). Absent: tenderness, meningismus, lymphadenopathy, thyromegaly - Respiratory Respiratory exam: Present: normal lung sounds bilaterally. Absent: respiratory distress, chest wall tenderness, accessory muscle use - Cardiovascular Cardiovascular Exam: Present: regular rate, normal rhythm, normal heart sounds. Absent: systolic murmur, diastolic murmur - GI/Abdominal GI/Abdominal exam: Present: soft, normal bowel sounds. Absent: distended, tenderness, guarding, rebound, rigid, organomegaly, mass, bruit, pulsatile mass , hernia - Extremities Exam Extremities exam: Present: normal inspection, full ROM, normal capillary refill , other (no clubbing, cyanosis or edema. +2+ distal extremities and no neurovascular compromise). Absent: tenderness, pedal edema, joint swelling, calf tenderness - Back Exam Back exam: Present: normal inspection, full ROM, other (amylase difficulties). Absent: tenderness, CVA tenderness (R), CVA tenderness (L), muscle spasm, paraspinal tenderness, vertebral tenderness, rash noted - Neurological Exam Neurological exam: Present: alert, oriented X3, normal gait, reflexes normal, other (no gross focal deficit). Absent: motor sensory deficit - Psychiatric Psychiatric exam: Present: normal affect, normal mood - Skin Skin exam: Present: warm, dry, intact, normal color. Absent: rash ED Course Vital Signs 12/25/17 12/25/17 13:13 16:54 Temperature 98.2 F Pulse Rate 93 H 65 Respiratory 18 18 Rate Blood Pressure 144/76 Blood Pressure 129/65 [Right] O2 Sat by Pulse 100 97 Oximetry - Reevaluation(s) Reevaluation #1: 12/25/17 16:37 Patient received normal saline IV fluid 1 L, Toradol 50 mg IV and Zofran 4 mg IV. Vital signs are stable. She states that she feels better. Urinalysis with greater than 500 glucose, trace ketone. CO2 is normal and anion gap is normal. Calculated anion gap based on her sodium, bicarbonate and chloride is 12.6 but lab is reporting or anion gap of 18. Patient received 5 units of regular insulin emergency room for a glucose greater than 350. Reevaluation #2: 12/25/17 17:09 By mouth POC blood sugar is at 326 and patient just received 5 units of insulin. ED Medical Decision Making - Lab Data Result diagrams: 12/25/17 14:51 12/25/17 14:51 Lab Results 12/25/17 12/25/17 12/25/17 Range/Units 14:51 14:51 Unknown WBC 6.7 (4.5-11.0) K/mm3 RBC 4.73 (3.65-5.03) M/mm3 Hgb 14.8 H (10.1-14.3) gm/dl Hct 44.0 H (30.3-42.9) % MCV 93 (79-97) fl MCH 31 (28-32) pg MCHC 34 (30-34) % RDW 13.3 (13.2-15.2) % Plt Count 232 (140-440) K/mm3 Lymph % (Auto) 35.1 H (13.4-35.0) % [place] % (Auto) 5.8 (0.0-7.3) % Eos % (Auto) 1.2 (0.0-4.3) % Baso % (Auto) 0.6 (0.0-1.8) % Lymph # 2.3 (1.2-5.4) K/mm3 [place] # 0.4 (0.0-0.8) K/mm3 Eos # 0.1 (0.0-0.4) K/mm3 Baso # 0.0 (0.0-0.1) K/mm3 Seg Neutrophils % 57.3 (40.0-70.0) % Seg Neutrophils # 3.8 (1.8-7.7) K/mm3 Sodium 140 (137-145) mmol/L Potassium 5.0 (3.6-5.0) mmol/L Chloride 100.4 (98-107) mmol/L Carbon Dioxide 27 (22-30) mmol/L Anion Gap 18 mmol/L BUN 19 H (7-17) mg/dL Creatinine 0.6 L (0.7-1.2) mg/dL Estimated GFR > 60 ml/min BUN/Creatinine Ratio 32 % Glucose 383 H (65-100) mg/dL Calcium 9.8 (8.4-10.2) mg/dL Total Bilirubin 0.30 (0.1-1.2) mg/dL Direct Bilirubin < 0.2 (0-0.2) mg/dL Indirect Bilirubin 0.1 mg/dL AST 14 (5-40) units/L ALT 13 (7-56) units/L Alkaline Phosphatase 102 (35-129) units/L Total Protein 7.0 (6.3-8.2) g/dL Albumin 4.0 (3.9-5) g/dL Albumin/Globulin Ratio 1.3 % Lipase 33 (13-60) units/L Urine Color Yellow (Yellow) Urine Turbidity Clear (Clear) Urine pH 5.0 (5.0-7.0) Ur Specific [place] 1.030 (1.003-1.030) Urine Protein <15 mg/dl (Negative) mg/dL Urine Glucose (UA) >=500 (Negative) mg/dL Urine Ketones Tr (Negative) mg/dL Urine Blood Neg (Negative) Urine Nitrite Neg (Negative) Urine Bilirubin Neg (Negative) Urine Urobilinogen < 2.0 (<2.0) mg/dL Ur Leukocyte Esterase Neg (Negative) Urine WBC (Auto) < 1.0 (0.0-6.0) /HPF Urine RBC (Auto) 2.0 (0.0-6.0) /HPF U Epithel Cells (Auto) 1.0 (0-13.0) /HPF - EKG Data -: EKG Interpreted by Me (attending physician) EKG shows normal: sinus rhythm (sinus rhythm at 76) Rate: normal - EKG Data Interpretation: no acute changes - Radiology Data Radiology results: report reviewed CT scan of abdomen and pelvis without contrast revealed there is prominent stool throughout the colon. Patient said that she took laxative that was prescribed for her and she had large bowel movement and she's been having irregular bowel movement on a daily basis. Diverticulosis without any diverticulitis. Single punctuate nonobstructive right intrarenal calculus without hydronephrosis or acute obstructive uropathy - Medical Decision Making ED course: Pt here with multiple complaints include urinary incontinence, dizziness and abdominal cramping that's been ongoing on and off. Patient is diabetic and blood sugar today is 386. Urinalysis normal except she has trace ketone with greater than 500 glucose in her urine. CMP stable and 9 Reported to be 18 but calculated anion gap is 12.6 which is normal for patient. CBC stable she is elevated hemoglobin and hematocrit which reflects dehydration. Patient received 1 L of normal saline emergency room, Zofran 4 mg IV and Toradol 30 mg IV. She was given 5 units frequently insulin IV for elevated blood glucose. Patient reports that she is feeling better. She had no episode of abdominal pain in the emergency room. Abdominal exam is normal. I discussed the patient and lab results and also her CT scan results and she voiced understanding. Patient does have a primary care physician so I discussed with her to call flavioorrow to schedule an appointment to see on Friday. I also discussed with her that she needs to have a laxative because she has large amount of stool in her colon. Please refer to lab section for details on laboratory. CT scan shows patient with prominent stool throughout the colon but she denies any constipation, diverticulosis without diverticulitis. Right intrarenal calculus without any hydronephrosis or obstruction. Please refer to radiology section for details. Patient discharged home in stable condition with prescription for Zofran, Antivert, bisacodyl for constipation and Ultram. Patient instructed to increase her fluid intake and also increase her fiber intake.. Critical care attestation.: If time is entered above; I have spent that time in minutes in the direct care of this critically ill patient, excluding procedure time. ED Disposition Clinical Impression: Nausea alone, Episodic lightheadedness, Hyperglycemia due to type 1 diabetes mellitus, Right kidney stone Abdominal pain Qualifiers: Abdominal location: generalized Qualified Code(s): R10.84 - Generalized abdominal pain Urinary bladder incontinence Qualifiers: Urinary Incontinence type: unspecified incontinence Qualified Code(s): R32 - Unspecified urinary incontinence Constipation Qualifiers: Constipation type: unspecified constipation type Qualified Code(s): K59.00 - Constipation, unspecified Diverticulosis Qualifiers: Diverticulosis site: diverticulosis of large intestine Diverticulosis bleeding : diverticulosis without bleeding Qualified Code(s): K57.30 - Diverticulosis of large intestine without perforation or abscess without bleeding Disposition: DC-01 TO HOME OR SELFCARE Is pt being admited?: No Does the pt Need Aspirin: No Condition: Stable Instructions: Constipation (ED), Dehydration (ED), Diverticulosis (ED), Kidney Stones (ED), Renal Colic (ED), High Fiber Diet (ED), Diabetes Mellitus Type 1 in Adults (ED), Managing Diabetes During Sick Days (ED), Diverticulosis Diet (ED ), Abdominal Pain (ED), Lightheadedness (ED), Diabetic Hyperglycemia (ED) Additional Instructions: Please increase her fluid intake to 2-3 L of Take medication as prescribed Please do not drive or operate heavy machinery while taking Ultram as this medication will cause drowsiness Call your primary care physician tomorrow to schedule an appointment for follow- up visit. Follow-up for urology for urinary incontinence and kidney stone Follow-up with gastroenterology for diverticulosis Prescriptions: Bisacodyl [Dulcolax tab] 10 mg PO DAILY PRN 2 Days #4 tab PRN Reason: Constipation Meclizine [Antivert] 25 mg PO Q8H PRN #12 tablet PRN Reason: Vertigo Ondansetron [Zofran Odt] 4 mg PO Q8HR PRN #12 tab.rapdis PRN Reason: Nausea traMADol [Ultram] 50 mg PO Q6HR PRN #12 tablet PRN Reason: Pain Referrals: PRIMARY CARE, [Primary Care Provider] - 12/26/17 [facility] [Provider Group] - 12/29/17 [facility] [Provider Group] - 3-5 Days
[2017-12-25 15:27] LABS: Alanine Aminotransferase 13 units/L (7-56); BUN/Creatinine Ratio 32; Blood Urea Nitrogen 19 mg/dL (7-17); Calcium 9.8 mg/dL (8.4-10.2); Hemolysis Index 17; Lipase 33 units/L (13-60)
[2017-12-25 15:48] LABS: Bilirubin,Direct < 0.2 mg/dL (0-0.2)
[2017-12-25 16:09] LABS: Bilirubin,Urine NEG (Negative); Blood,Urine NEG (Negative); Color,Urine Yellow (Yellow); Protein,Urine <15 mg/dL mg/dL (Negative); Urobilinogen,Urine < 2.0 mg/dL (<2.0); WBC,Urine < 1.0 /HPF (0.0-6.0)
[2017-12-25 16:55] VITALS: BP 129/65
== END 2017-12-25 17:15 | disposition home or self-care (01) ==
LOC: ED 11:51
DX: R42 Dizziness and giddiness (principal); E10.65 Type 1 diabetes mellitus with hyperglycemia; N20.0 Calculus of kidney; K57.30 Diverticulosis of large intestine without perforation or abscess without bleeding; K59.00 Constipation, unspecified; I10 Essential (primary) hypertension; K21.9 Gastro-esophageal reflux disease without esophagitis; M19.90 Unspecified osteoarthritis, unspecified site; E78.00 Pure hypercholesterolemia, unspecified; F17.200 Nicotine dependence, unspecified, uncomplicated; Z91.041 Radiographic dye allergy status; Z88.0 Allergy status to penicillin; Z88.8 Allergy status to other drugs, medicaments and biological substances; Z91.030 Bee allergy status
CPT/HCPCS: 36415; 74176; 80048; 80074; 81001; 82962; 83690; 85025; 93005; 93010; 96361; 96374; 96375; 99284; J1885; J2405; J7030; J1815

== ENCOUNTER 2018-12-28 17:09 | Inpatient (IN) | payer MEDICARE ==
[2018-12-28 18:04] LABS: Hematocrit 43.6 % (30.3-42.9); Hemoglobin 14.6 gm/dl (10.1-14.3); Mean Corpuscular HGB Conc 34 % (30-34); Mean Corpuscular Volume 94 fl (79-97); Platelet Count 216 K/mm3 (140-440); Red Blood Count 4.64 M/mm3 (3.65-5.03); Red Cell Distribution Width 13.1 % (13.2-15.2)
[2018-12-28] MEDS ORDERED: NACL 0.9% 1000 ML 1,000 ML IV ONE ×2 (18:16→22:19)
--- NOTE | 2018-12-28 18:24 | Emergency Department Report ---
ED Neuro Deficit HPI - General Chief Complaint: Hyperglycemia Stated Complaint: N/V Time Seen by Provider: 12/28/18 17:40 Source: patient, EMS Mode of arrival: Stretcher Limitations: No Limitations - History of Present Illness Initial Comments: Mrs. Ellis is a 78 yo female with hx of IDDM, dehydration, UTI, HTN, dyslipidemia who presents with recurrent falls, generalized malaise and nausea/vomiting. EMS reported high glucose reading. Mrs. Ellis has been without insulin and metformin for several days. She recently returned from her brother's in [place]. She explained that she would fall every time she stood up. +generalized abdomiinal discomfort. No discrete pain. No paralysis. No speech difficulty. Feels unsteady when standing. -: Gradual, days(s) (1) Location: other (recurring fall, difficulty walking) History of same: Yes Place: home Quality: weak Improves With: none Worsens With: other (movement) Context: gradual onset Associated Symptoms: malise, nausea/vomiting - Related Data Home Medications: Home Medications Medication Instructions Recorded Confirmed Last Taken Pravastatin Sodium [Pravastatin] 10 mg PO HS 12/20/13 11/23/16 04/20/15 Sitagliptin Phosphate [Januvia] 100 mg PO DAILY 12/20/13 11/23/16 04/20/15 amLODIPine [Norvasc] 5 mg PO DAILY 12/20/13 11/23/16 04/20/15 Aspirin [Aspirin BABY CHEW TAB] 81 mg PO DAILY 04/20/15 11/23/16 04/20/15 22:35 Insulin Detemir [Levemir Flextouch] 21 unit SQ QHS 04/20/15 11/23/16 04/20/15 Previous Rx's Medication Instructions Recorded Last Taken Type Hydrochlorothiazide [HCTZ] 50 mg PO DAILY #30 tablet 11/26/16 Unknown Rx levoFLOXacin [Levaquin] 750 mg PO QDAY #5 tablet 11/26/16 Unknown Rx Bisacodyl [Dulcolax tab] 10 mg PO DAILY PRN 2 Days #4 tab 12/25/17 Unknown Rx Meclizine [Antivert] 25 mg PO Q8H PRN #12 tablet 12/25/17 Unknown Rx Ondansetron [Zofran Odt] 4 mg PO Q8HR PRN #12 tab.rapdis 12/25/17 Unknown Rx traMADol [Ultram] 50 mg PO Q6HR PRN #12 tablet 12/25/17 Unknown Rx Allergies/Adverse Reactions: Allergies Allergy/AdvReac Type Severity Reaction Status Date / Time iodine Allergy Swelling Verified 07/05/15 13:30 lisinopril Allergy Rash Verified 11/23/16 14:01 Penicillins Allergy Rash Verified 07/05/15 13:30 venom-honey bee Allergy Anaphylaxis Verified 07/05/15 13:30 [bee venom (honey bee)] ED Review of Systems ROS: Stated complaint: N/V Other details as noted in HPI Comment: All other systems reviewed and negative Constitutional: malaise, weakness Gastrointestinal: abdominal pain, nausea, vomiting ED Past Medical Hx - Past Medical History Previous Medical History?: Yes Hx Hypertension: Yes Hx Diabetes: Yes Hx GERD: Yes Hx Arthritis: Yes (legs) Hx HIV: No Additional medical history: Hypercholesterolemia,vertigo - Surgical History Past Surgical History?: Yes Additional Surgical History: Ectopic - Social History Smoking Status: Current Some Day Smoker Substance Use Type: None - Medications Home Medications: Home Medications Medication Instructions Recorded Confirmed Last Taken Type Pravastatin Sodium [Pravastatin] 10 mg PO HS 12/20/13 11/23/16 04/20/15 History Sitagliptin Phosphate [Januvia] 100 mg PO DAILY 12/20/13 11/23/16 04/20/15 History amLODIPine [Norvasc] 5 mg PO DAILY 12/20/13 11/23/16 04/20/15 History Aspirin [Aspirin BABY CHEW TAB] 81 mg PO DAILY 04/20/15 11/23/16 04/20/15 22:35 History Insulin Detemir [Levemir Flextouch] 21 unit SQ QHS 04/20/15 11/23/16 04/20/15 History Hydrochlorothiazide [HCTZ] 50 mg PO DAILY #30 tablet 11/26/16 Unknown Rx levoFLOXacin [Levaquin] 750 mg PO QDAY #5 tablet 11/26/16 Unknown Rx Bisacodyl [Dulcolax tab] 10 mg PO DAILY PRN 2 Days #4 tab 12/25/17 Unknown Rx Meclizine [Antivert] 25 mg PO Q8H PRN #12 tablet 12/25/17 Unknown Rx Ondansetron [Zofran Odt] 4 mg PO Q8HR PRN #12 tab.rapdis 12/25/17 Unknown Rx traMADol [Ultram] 50 mg PO Q6HR PRN #12 tablet 12/25/17 Unknown Rx ED Neuro Physical Exam - General Limitations: No Limitations General appearance: alert, in no apparent distress, other (able to transfer in bed and change position with ease, unsteady with ambulation feels lightheaded with standing alone) Suspected Stroke: No - Head Head exam: Present: atraumatic, normocephalic - Eye Eye exam: Present: normal appearance - ENT ENT exam: Present: normal exam, mucous membranes moist - Neck Neck exam: Present: normal inspection, full ROM. Absent: tenderness, meningismus - Respiratory Respiratory exam: Present: normal lung sounds bilaterally. Absent: respiratory distress, wheezes, rales, rhonchi - Cardiovascular Cardiovascular Exam: Present: regular rate, normal rhythm, normal heart sounds. Absent: systolic murmur, diastolic murmur, rubs, gallop - GI/Abdominal GI/Abdominal exam: Present: soft, normal bowel sounds. Absent: distended, tenderness, guarding, rebound - Extremities Exam Extremities exam: Present: normal inspection - Back Exam Back exam: Present: normal inspection - Neurological Exam Neurological exam: Present: alert, oriented X3 - NIHSS Assessment Interval: Baseline 1a. Level of Consciousness: alert/keenly responsive 1b. LOC Questions: answers both correctly 1c. LOC Commands: performs tasks correctly 2. Best Gaze: normal 3. Visual: no visual loss 4. Facial Palsy: normal symmetrical movement 5b. Motor Arm Right: no drift 5a. Motor Arm Left: no drift 6a. Motor Leg Left: no drift 6b. Motor Leg Right: no drift 7. Limb Ataxia: absent 8. Sensory: normal 9. Best Language: no aphasia 10. Dysarthria: normal 11. Extinction/Inattention: no abnormality Total Score: 0 Stroke Severity: No Stroke Symptoms - Psychiatric Psychiatric exam: Present: normal affect, normal mood - Skin Skin exam: Present: warm, dry, intact, normal color. Absent: rash ED Course Vital Signs 12/28/18 17:30 Pulse Rate 100 H Respiratory 18 Rate Blood Pressure 103/54 O2 Sat by Pulse 99 Oximetry - Lab Data Result diagrams: 12/28/18 17:41 12/28/18 17:41 Lab Results 12/28/18 12/28/18 12/28/18 Range/Units 17:24 17:41 17:41 WBC 13.0 H (4.5-11.0) K/mm3 RBC 4.64 (3.65-5.03) M/mm3 Hgb 14.6 H (10.1-14.3) gm/dl Hct 43.6 H (30.3-42.9) % MCV 94 (79-97) fl MCH 32 (28-32) pg MCHC 34 (30-34) % RDW 13.1 L (13.2-15.2) % Plt Count 216 (140-440) K/mm3 Add Manual Diff Complete Total Counted 100 Seg Neuts % (Manual) 95.0 H (40.0-70.0) % Band Neutrophils % 0 % Lymphocytes % (Manual) 3.0 L (13.4-35.0) % Reactive Lymphs % (Man) 0 % Monocytes % (Manual) 1.0 (0.0-7.3) % Eosinophils % (Manual) 1.0 (0.0-4.3) % Basophils % (Manual) 0 (0.0-1.8) % Metamyelocytes % 0 % Myelocytes % 0 % Promyelocytes % 0 % Blast Cells % 0 % Nucleated RBC % Not Reportable Seg Neutrophils # Man 12.4 H (1.8-7.7) K/mm3 Band Neutrophils # 0.0 K/mm3 Lymphocytes # (Manual) 0.4 L (1.2-5.4) K/mm3 Abs React Lymphs (Man) 0.0 K/mm3 Monocytes # (Manual) 0.1 (0.0-0.8) K/mm3 Eosinophils # (Manual) 0.1 (0.0-0.4) K/mm3 Basophils # (Manual) 0.0 (0.0-0.1) K/mm3 Metamyelocytes # 0.0 K/mm3 Myelocytes # 0.0 K/mm3 Promyelocytes # 0.0 K/mm3 Blast Cells # 0.0 K/mm3 WBC Morphology Not Reportable Hypersegmented Neuts Not Reportable Hyposegmented Neuts Not Reportable Hypogranular Neuts Not Reportable Smudge Cells Not Reportable Toxic Granulation Not Reportable Toxic Vacuolation Not Reportable Dohle Bodies Not Reportable Pelger-Huet Anomaly Not Reportable Adrian Rods Not Reportable Platelet Estimate Appears normal Clumped Platelets Not Reportable Plt Clumps, EDTA Not Reportable Large Platelets Not Reportable Giant Platelets Not Reportable Platelet Satelliting Not Reportable Plt Morphology Comment Not Reportable RBC Morphology Not Reportable Dimorphic RBCs Not Reportable Polychromasia Not Reportable Hypochromasia Not Reportable Poikilocytosis Not Reportable Anisocytosis Not Reportable Microcytosis Not Reportable Macrocytosis Not Reportable Spherocytes Not Reportable Pappenheimer Bodies Not Reportable Sickle Cells Not Reportable Target Cells Not Reportable Tear Drop Cells Not Reportable Ovalocytes Not Reportable Helmet Cells Not Reportable [place] Bodies Not Reportable [place] Rings Not Reportable Keller Cells Not Reportable Bite Cells Not Reportable Crenated Cell Not Reportable Elliptocytes Not Reportable Acanthocytes (Spur) Not Reportable Rouleaux Not Reportable Hemoglobin C Crystals Not Reportable Schistocytes Not Reportable Malaria parasites Not Reportable Pawel Bodies Not Reportable Hem Pathologist Commnt No PT (12.2-14.9) Sec. INR (0.87-1.13) APTT (24.2-36.6) Sec. Sodium 132 L (137-145) mmol/L Potassium 3.9 (3.6-5.0) mmol/L Chloride 89.9 L (98-107) mmol/L Carbon Dioxide 25 (22-30) mmol/L Anion Gap 21 mmol/L BUN 23 H (7-17) mg/dL Creatinine 0.8 (0.7-1.2) mg/dL Estimated GFR > 60 ml/min BUN/Creatinine Ratio 29 % Glucose 475 H (65-100) mg/dL POC Glucose 417 H (70-105) Calcium 9.3 (8.4-10.2) mg/dL Total Bilirubin 0.70 (0.1-1.2) mg/dL AST 10 (5-40) units/L ALT 9 (7-56) units/L Alkaline Phosphatase 78 (35-129) units/L Troponin T (0.00-0.029) ng/mL Total Protein 7.0 (6.3-8.2) g/dL Albumin 3.4 L (3.9-5) g/dL Albumin/Globulin Ratio 0.9 % Lipase (13-60) units/L Plasma/Serum Alcohol (0-0.07) % 12/28/18 12/28/18 12/28/18 Range/Units 18:35 18:35 18:35 WBC (4.5-11.0) K/mm3 RBC (3.65-5.03) M/mm3 Hgb (10.1-14.3) gm/dl Hct (30.3-42.9) % MCV (79-97) fl MCH (28-32) pg MCHC (30-34) % RDW (13.2-15.2) % Plt Count (140-440) K/mm3 Add Manual Diff Total Counted Seg Neuts % (Manual) (40.0-70.0) % Band Neutrophils % % Lymphocytes % (Manual) (13.4-35.0) % Reactive Lymphs % (Man) % Monocytes % (Manual) (0.0-7.3) % Eosinophils % (Manual) (0.0-4.3) % Basophils % (Manual) (0.0-1.8) % Metamyelocytes % % Myelocytes % % Promyelocytes % % Blast Cells % % Nucleated RBC % Seg Neutrophils # Man (1.8-7.7) K/mm3 Band Neutrophils # K/mm3 Lymphocytes # (Manual) (1.2-5.4) K/mm3 Abs React Lymphs (Man) K/mm3 Monocytes # (Manual) (0.0-0.8) K/mm3 Eosinophils # (Manual) (0.0-0.4) K/mm3 Basophils # (Manual) (0.0-0.1) K/mm3 Metamyelocytes # K/mm3 Myelocytes # K/mm3 Promyelocytes # K/mm3 Blast Cells # K/mm3 WBC Morphology Hypersegmented Neuts Hyposegmented Neuts Hypogranular Neuts Smudge Cells Toxic Granulation Toxic Vacuolation Dohle Bodies Pelger-Huet Anomaly Adrian Rods Platelet Estimate Clumped Platelets Plt Clumps, EDTA Large Platelets Giant Platelets Platelet Satelliting Plt Morphology Comment RBC Morphology Dimorphic RBCs Polychromasia Hypochromasia Poikilocytosis Anisocytosis Microcytosis Macrocytosis Spherocytes Pappenheimer Bodies Sickle Cells Target Cells Tear Drop Cells Ovalocytes Helmet Cells Senior-[place] Bodies [place] Rings Cruz Cells Bite Cells Crenated Cell Elliptocytes Acanthocytes (Spur) Rouleaux Hemoglobin C Crystals Schistocytes Malaria parasites Pawel Bodies Hem Pathologist Commnt PT 13.0 (12.2-14.9) Sec. INR 0.93 (0.87-1.13) APTT 24.3 (24.2-36.6) Sec. Sodium (137-145) mmol/L Potassium (3.6-5.0) mmol/L Chloride (98-107) mmol/L Carbon Dioxide (22-30) mmol/L Anion Gap mmol/L BUN (7-17) mg/dL Creatinine (0.7-1.2) mg/dL Estimated GFR ml/min BUN/Creatinine Ratio % Glucose (65-100) mg/dL POC Glucose (70-105) Calcium (8.4-10.2) mg/dL Total Bilirubin (0.1-1.2) mg/dL AST (5-40) units/L ALT (7-56) units/L Alkaline Phosphatase (35-129) units/L Troponin T < 0.010 (0.00-0.029) ng/mL Total Protein (6.3-8.2) g/dL Albumin (3.9-5) g/dL Albumin/Globulin Ratio % Lipase 36 (13-60) units/L Plasma/Serum Alcohol (0-0.07) % // Range/Units 18:35 WBC (4.5-11.0) K/mm3 RBC (3.65-5.03) M/mm3 Hgb (10.1-14.3) gm/dl Hct (30.3-42.9) % MCV (79-97) fl MCH (28-32) pg MCHC (30-34) % RDW (13.2-15.2) % Plt Count (140-440) K/mm3 Add Manual Diff Total Counted Seg Neuts % (Manual) (40.0-70.0) % Band Neutrophils % % Lymphocytes % (Manual) (13.4-35.0) % Reactive Lymphs % (Man) % Monocytes % (Manual) (0.0-7.3) % Eosinophils % (Manual) (0.0-4.3) % Basophils % (Manual) (0.0-1.8) % Metamyelocytes % % Myelocytes % % Promyelocytes % % Blast Cells % % Nucleated RBC % Seg Neutrophils # Man (1.8-7.7) K/mm3 Band Neutrophils # K/mm3 Lymphocytes # (Manual) (1.2-5.4) K/mm3 Abs React Lymphs (Man) K/mm3 Monocytes # (Manual) (0.0-0.8) K/mm3 Eosinophils # (Manual) (0.0-0.4) K/mm3 Basophils # (Manual) (0.0-0.1) K/mm3 Metamyelocytes # K/mm3 Myelocytes # K/mm3 Promyelocytes # K/mm3 Blast Cells # K/mm3 WBC Morphology Hypersegmented Neuts Hyposegmented Neuts Hypogranular Neuts Smudge Cells Toxic Granulation Toxic Vacuolation Dohle Bodies Pelger-Huet Anomaly Adrian Rods Platelet Estimate Clumped Platelets Plt Clumps, EDTA Large Platelets Giant Platelets Platelet Satelliting Plt Morphology Comment RBC Morphology Dimorphic RBCs Polychromasia Hypochromasia Poikilocytosis Anisocytosis Microcytosis Macrocytosis Spherocytes Pappenheimer Bodies Sickle Cells Target Cells Tear Drop Cells Ovalocytes Helmet Cells Senior-[place] Bodies [place] Rings Keller Cells Bite Cells Crenated Cell Elliptocytes Acanthocytes (Spur) Rouleaux Hemoglobin C Crystals Schistocytes Malaria parasites Pawel Bodies Hem Pathologist Commnt PT (12.2-14.9) Sec. INR (0.87-1.13) APTT (24.2-36.6) Sec. Sodium (137-145) mmol/L Potassium (3.6-5.0) mmol/L Chloride (98-107) mmol/L Carbon Dioxide (22-30) mmol/L Anion Gap mmol/L BUN (7-17) mg/dL Creatinine (0.7-1.2) mg/dL Estimated GFR ml/min BUN/Creatinine Ratio % Glucose (65-100) mg/dL POC Glucose (70-105) Calcium (8.4-10.2) mg/dL Total Bilirubin (0.1-1.2) mg/dL AST (5-40) units/L ALT (7-56) units/L Alkaline Phosphatase (35-129) units/L Troponin T (0.00-0.029) ng/mL Total Protein (6.3-8.2) g/dL Albumin (3.9-5) g/dL Albumin/Globulin Ratio % Lipase (13-60) units/L Plasma/Serum Alcohol < 0.01 (0-0.07) % - Medical Decision Making Ms. Ellis presents with nausea/vomiting and recurrent falls upon standing. Suspect orthostasis with volume contraction evident on chemistry. Posterior circulation CVA is a consideration. TPA not indicated due to confounding presentation and onset of symptoms > 24 hours ago. Suspect hyperglycemia and hypovolemia due to poor glucose control without medication for several days. Awaiting UA, CT head, and CT A/P results. Dr. Leija hospitalist will evaluate patient on behalf of hospitalist service Critical care attestation.: If time is entered above; I have spent that time in minutes in the direct care of this critically ill patient, excluding procedure time. ED Disposition Clinical Impression: Dehydration, Hyperglycemia, Gait instability Disposition: OP ADMIT IP TO THIS HOSP Is pt being admited?: Yes Does the pt Need Aspirin: No Condition: Stable
[2018-12-28 18:35] LABS: Basophils % (Manual) 0 % (0.0-1.8); Total Cells Counted 100
[2018-12-28 18:58] LABS: Alanine Aminotransferase 9 units/L (7-56); Albumin 3.4 g/dL (3.9-5); BUN/Creatinine Ratio 29; Blood Urea Nitrogen 23 mg/dL (7-17); Calcium 9.3 mg/dL (8.4-10.2); Hemolysis Index 17
[2018-12-28 19:05] LABS: INR 0.93 (0.87-1.13)
[2018-12-28 19:06] LABS: Partial Thromboplastin Time 24.3 Sec. (24.2-36.6)
--- NOTE | 2018-12-28 20:26 | Cat Scan Report ---
FINAL REPORT EXAM: CT HEAD/BRAIN WO CON HISTORY: Stroke symptoms TECHNIQUE: 2.5 millimeter axial images from the skullbase to the vertex. Comparison: None FINDINGS: There are nonspecific areas of decreased density in the left superior frontal lobe subcortical white matter that are nonspecific in appearance but may represent areas of chronic post ischemic demyelinat ion/small vessel disease. There is no evidence of intracranial hemorrhage or mass effect. Ventricular size is concordant with the degree of atrophy. There is atherosclerotic vascular calcification of the internal carotid arteries bilaterally at the s kullbase. The visualized portions of the orbits, paranasal and mastoid sinuses are unremarkable. IMPRESSION: 1. No evidence of an acute intracranial process, intracranial hemorrhage or mass effect. If there is a clinical suspicion of an acute intracranial process and if there is no clinical contrai ndication, MRI brain may be helpful.
[2018-12-28 20:38] LABS: Bilirubin,Urine NEG (Negative); Blood,Urine NEG (Negative); Color,Urine Yellow (Yellow); Mucus,Urine FEW /HPF; Urobilinogen,Urine < 2.0 mg/dL (<2.0)
--- NOTE | 2018-12-28 20:52 | Cat Scan Report ---
FINAL REPORT EXAM: CT ABDOMEN PELVIS WO CON HISTORY: abdominal pain TECHNIQUE: Axial helical imaging through the abdomen and pelvis with sagittal and coronal reformatte d images obtained. Comparison: CT abdomen and pelvis dated December 25, 2017 FINDINGS: There is an approximately 8 millimeter nodular density in the left upper lobe that is incompletely im aged. There is an approximately 2.7 millimeter subpleural nodular density in the right lower lobe. There is the appearance of bilateral pulmonary emphysema. The liver, spleen, pancreas and adrenal glands are unremarkable. The gallbladder is moderately distended and unremarkable. There is no significant change approximately 1.5 centimeter right renal cyst. There is mild prominenc e of the renal collecting system bilaterally that is most likely secondary to distention of the urina ry bladder at the time of this study. The bowel is normal caliber. There is colonic diverticulosis without radiographic evidence of diverticulitis. The appendix is not definitively visualized. However, there is no evidence of inflammatory change in the expected location of the appendix. There is mild aneurysmal dilatation of the infrarenal abdominal aorta (2.7 centimeters) that is simil ar in appearance to the previous study. There is extensive atherosclerotic vascular calcification of the large and medium caliber arteries. There is no evidence of intra-abdominal adenopathy. The urinary bladder is moderately distended but otherwise unremarkable. The uterus is absent. The bony structures are notable for spondylitic change of the lower thoracic spine and the lumbar spi ne with multiple level canal stenosis. IMPRESSION: 1. No evidence of an acute intra-abdominal process. 2. Colonic diverticulosis without radiographic evidence of diverticulitis. 3. Stable appearance of mild aneurysmal dilatation infrarenal abdominal aorta. 4. Status post hysterectomy. 5. Spondylitic change thoracic and lumbar spine with multiple level canal stenosis. 6. Incomplete visualization of a nodular density in the left upper lobe. Recommend correlation with r ecent chest CT. If no prior chest CT is available for comparison, recommend CT of the chest for furth er evaluation.
[2018-12-28] MEDS ORDERED: SODIUM CHLORIDE FLUSH SYRINGE 10 ML IV PRN (22:10)
[2018-12-28] MEDS ORDERED: MILK OF MAGNESIA PO PRN (22:10)
[2018-12-28] MEDS ORDERED: ZOFRAN IV PRN (22:10)
[2018-12-28] MEDS ORDERED: TYLENOL PO PRN (22:10)
[2018-12-28] MEDS ORDERED: D50W (25GM) Syringe IV PRN (22:20)
[2018-12-28] MEDS ORDERED: NACL 0.9% 1000 ML 1,000 ML IV SCH (23:00)
[2018-12-28] MEDS: LANTUS SUB-Q SCH (23:17)
--- NOTE | 2018-12-28 23:18 | History and Physical Report ---
History of Present Illness Date of examination: 12/28/18 Date of admission: 12/28/18 22:10 Chief complaint: Nausea and vomiting History of present illness: Patient is a 78 year old -Malagasy female with history of diabetes mellitus and hypertension who presented to the ED on account of a day history of nausea with vomiting. She has associated abdominal discomfort, generalized weakness, unsteady gait, subjective fever with chills, headaches, lightheadedne ss, dry cough and palpitation. She also has positive history of excessive thirst, urinary urgency and polyuria. Patient stated that she traveled to [place] for 4 days for his brother's during which she did not take her medications because she forgot them in [place]. She denies chest pain, shortness of breath, leg swelling, sore throat, runny nose or congestion, orthopnea or PND. No reported facial droop, slurred speech, extremity weakness bleeding from any orifice, syncope or loss of consciousness Past History Past Medical History: diabetes, GERD, hypertension Past Surgical History: Other (Tubal ligation) Social history: smoking (more than 50 years history of cigarette smoking. She currently smokes few sticks of cigarettes per day. She denies alcohol or illicit drug use) Family history: other (reviewed and noncontributory) Medications and Allergies Allergies Allergy/AdvReac Type Severity Reaction Status Date / Time iodine Allergy Swelling Verified 07/05/15 13:30 lisinopril Allergy Rash Verified 11/23/16 14:01 Penicillins Allergy Rash Verified 07/05/15 13:30 venom-honey bee Allergy Anaphylaxis Verified 07/05/15 13:30 [bee venom (honey bee)] Home Medications Medication Instructions Recorded Confirmed Last Taken Type Pravastatin Sodium [Pravastatin] 10 mg PO HS 12/20/13 11/23/16 04/20/15 History Sitagliptin Phosphate [Januvia] 100 mg PO DAILY 12/20/13 11/23/16 04/20/15 History amLODIPine [Norvasc] 5 mg PO DAILY 12/20/13 11/23/16 04/20/15 History Aspirin [Aspirin BABY CHEW TAB] 81 mg PO DAILY 04/20/15 11/23/16 04/20/15 22:35 History Insulin Detemir [Levemir Flextouch] 21 unit SQ QHS 04/20/15 11/23/16 04/20/15 History Hydrochlorothiazide [HCTZ] 50 mg PO DAILY #30 tablet 11/26/16 Unknown Rx levoFLOXacin [Levaquin] 750 mg PO QDAY #5 tablet 11/26/16 Unknown Rx Bisacodyl [Dulcolax tab] 10 mg PO DAILY PRN 2 Days #4 tab 12/25/17 Unknown Rx Meclizine [Antivert] 25 mg PO Q8H PRN #12 tablet 12/25/17 Unknown Rx Ondansetron [Zofran Odt] 4 mg PO Q8HR PRN #12 tab.rapdis 12/25/17 Unknown Rx traMADol [Ultram] 50 mg PO Q6HR PRN #12 tablet 12/25/17 Unknown Rx Active Meds: Active Medications Acetaminophen (Tylenol) 650 mg PO Q4H PRN PRN Reason: Pain MILD(1-3)/Fever >100.5/BUENO Dextrose (D50w (25gm) Syringe) 50 ml IV PRN PRN PRN Reason: Hypoglycemia Famotidine (Pepcid) 10 mg IV BID [facility] Heparin Sodium (Porcine) (Heparin) 5,000 unit SUB-Q Q12HR [facility] Sodium Chloride (Nacl 0.9% 1000 Ml) 1,000 mls @ 999 mls/hr IV BOLUS ONE Stop: 12/28/18 23:19 Last Admin: 12/28/18 22:47 Dose: 999 mls/hr Documented by: Sodium Chloride (Nacl 0.9% 1000 Ml) 1,000 mls @ 100 mls/hr IV DIRECT KAYLEE Insulin Glargine (Lantus) 25 units SUB-Q BID [facility] Insulin Human Lispro (Humalog) 0 unit SUB-Q ACHS [facility]; Protocol Magnesium Hydroxide (Milk Of Magnesia) 30 ml PO Q4H PRN PRN Reason: Constipation Ondansetron HCl (Zofran) 4 mg IV Q8H PRN PRN Reason: Nausea And Vomiting Sodium Chloride (Sodium Chloride Flush Syringe 10 Ml) 10 ml IV BID [facility] Sodium Chloride (Sodium Chloride Flush Syringe 10 Ml) 10 ml IV PRN PRN PRN Reason: LINE FLUSH Review of Systems All systems: negative (except as documented in the HPI, all other systems were reviewed and negative) Exam - Constitutional Vitals: Temp Pulse Resp BP Pulse Ox 70 18 120/72 94 12/28/18 22:51 02/25/19 22:51 12/28/18 22:51 12/28/18 22:51 General appearance: Present: no acute distress - EENT Eyes: Present: PERRL, EOM intact ENT: hearing intact, clear oral mucosa - Neck Neck: Present: supple, normal ROM - Respiratory Respiratory effort: normal Respiratory: bilateral: CTA - Cardiovascular Heart Sounds: Present: S1 & S2. Absent: rub, click - Extremities Extremities: No edema Peripheral Pulses: within normal limits - Abdominal General gastrointestinal: Present: soft, non-tender, non-distended, normal bowel sounds Female genitourinary: Present: deferred - Integumentary Integumentary: Present: clear, warm, dry - Musculoskeletal Musculoskeletal: generalized weakness - Psychiatric Psychiatric: appropriate mood/affect, intact judgment & insight - Neurologic Neurologic: CNII-XII intact, moves all extremities Results - Labs CBC & Chem 7: 12/28/18 17:41 12/28/18 17:41 Labs: Laboratory Last Values WBC 13.0 K/mm3 (4.5-11.0) H 12/28/18 17:41 RBC 4.64 M/mm3 (3.65-5.03) 12/28/18 17:41 Hgb 14.6 gm/dl (10.1-14.3) H 12/28/18 17:41 Hct 43.6 % (30.3-42.9) H 12/28/18 17:41 MCV 94 fl (79-97) 12/28/18 17:41 MCH 32 pg (28-32) 12/28/18 17:41 MCHC 34 % (30-34) 12/28/18 17:41 RDW 13.1 % (13.2-15.2) L 12/28/18 17:41 Plt Count 216 K/mm3 (140-440) 12/28/18 17:41 Add Manual Diff Complete 12/28/18 17:41 Total Counted 100 12/28/18 17:41 Seg Neuts % (Manual) 95.0 % (40.0-70.0) H 12/28/18 17:41 Band Neutrophils % 0 % 12/28/18 17:41 Lymphocytes % (Manual) 3.0 % (13.4-35.0) L 12/28/18 17:41 Reactive Lymphs % (Man) 0 % 12/28/18 17:41 Monocytes % (Manual) 1.0 % (0.0-7.3) 12/28/18 17:41 Eosinophils % (Manual) 1.0 % (0.0-4.3) 12/28/18 17:41 Basophils % (Manual) 0 % (0.0-1.8) 12/28/18 17:41 Metamyelocytes % 0 % 12/28/18 17:41 Myelocytes % 0 % 12/28/18 17:41 Promyelocytes % 0 % 12/28/18 17:41 Blast Cells % 0 % 12/28/18 17:41 Nucleated RBC % Not Reportable 12/28/18 17:41 Seg Neutrophils # Man 12.4 K/mm3 (1.8-7.7) H 12/28/18 17:41 Band Neutrophils # 0.0 K/mm3 12/28/18 17:41 Lymphocytes # (Manual) 0.4 K/mm3 (1.2-5.4) L 12/28/18 17:41 Abs React Lymphs (Man) 0.0 K/mm3 12/28/18 17:41 Monocytes # (Manual) 0.1 K/mm3 (0.0-0.8) 12/28/18 17:41 Eosinophils # (Manual) 0.1 K/mm3 (0.0-0.4) 12/28/18 17:41 Basophils # (Manual) 0.0 K/mm3 (0.0-0.1) 12/28/18 17:41 Metamyelocytes # 0.0 K/mm3 12/28/18 17:41 Myelocytes # 0.0 K/mm3 12/28/18 17:41 Promyelocytes # 0.0 K/mm3 12/28/18 17:41 Blast Cells # 0.0 K/mm3 12/28/18 17:41 WBC Morphology Not Reportable 12/28/18 17:41 Hypersegmented Neuts Not Reportable 12/28/18 17:41 Hyposegmented Neuts Not Reportable 12/28/18 17:41 Hypogranular Neuts Not Reportable 12/28/18 17:41 Smudge Cells Not Reportable 12/28/18 17:41 Toxic Granulation Not Reportable 12/28/18 17:41 Toxic Vacuolation Not Reportable 12/28/18 17:41 Dohle Bodies Not Reportable 12/28/18 17:41 Pelger-Huet Anomaly Not Reportable 12/28/18 17:41 Adrian Rods Not Reportable 12/28/18 17:41 Platelet Estimate Appears normal 12/28/18 17:41 Clumped Platelets Not Reportable 12/28/18 17:41 Plt Clumps, EDTA Not Reportable 12/28/18 17:41 Large Platelets Not Reportable 12/28/18 17:41 Giant Platelets Not Reportable 12/28/18 17:41 Platelet Satelliting Not Reportable 12/28/18 17:41 Plt Morphology Comment Not Reportable 12/28/18 17:41 RBC Morphology Not Reportable 12/28/18 17:41 Dimorphic RBCs Not Reportable 12/28/18 17:41 Polychromasia Not Reportable 12/28/18 17:41 Hypochromasia Not Reportable 12/28/18 17:41 Poikilocytosis Not Reportable 12/28/18 17:41 Anisocytosis Not Reportable 12/28/18 17:41 Microcytosis Not Reportable 12/28/18 17:41 Macrocytosis Not Reportable 12/28/18 17:41 Spherocytes Not Reportable 12/28/18 17:41 Pappenheimer Bodies Not Reportable 12/28/18 17:41 Sickle Cells Not Reportable 12/28/18 17:41 Target Cells Not Reportable 12/28/18 17:41 Tear Drop Cells Not Reportable 12/28/18 17:41 Ovalocytes Not Reportable 12/28/18 17:41 Helmet Cells Not Reportable 12/28/18 17:41 Senior-[place] Bodies Not Reportable 12/28/18 17:41 [place] Rings Not Reportable 12/28/18 17:41 [place] Cells Not Reportable 12/28/18 17:41 Bite Cells Not Reportable 12/28/18 17:41 Crenated Cell Not Reportable 12/28/18 17:41 Elliptocytes Not Reportable 12/28/18 17:41 Acanthocytes (Spur) Not Reportable 12/28/18 17:41 Rouleaux Not Reportable 12/28/18 17:41 Hemoglobin C Crystals Not Reportable 12/28/18 17:41 Schistocytes Not Reportable 12/28/18 17:41 Malaria parasites Not Reportable 12/28/18 17:41 Pawel Bodies Not Reportable 12/28/18 17:41 Hem Pathologist Commnt No 12/28/18 17:41 PT 13.0 Sec. (12.2-14.9) 12/28/18 18:35 INR 0.93 (0.87-1.13) 12/28/18 18:35 APTT 24.3 Sec. (24.2-36.6) 12/28/18 18:35 VBG pH 7.407 (7.320-7.420) 12/28/18 20:04 Sodium 132 mmol/L (137-145) L 12/28/18 17:41 Potassium 3.9 mmol/L (3.6-5.0) 12/28/18 17:41 Chloride 89.9 mmol/L (98-107) L 12/28/18 17:41 Carbon Dioxide 25 mmol/L (22-30) 12/28/18 17:41 Anion Gap 21 mmol/L 12/28/18 17:41 BUN 23 mg/dL (7-17) H 12/28/18 17:41 Creatinine 0.8 mg/dL (0.7-1.2) 12/28/18 17:41 Estimated GFR > 60 ml/min 12/28/18 17:41 BUN/Creatinine Ratio 29 % 12/28/18 17:41 Glucose 475 mg/dL (65-100) H 12/28/18 17:41 POC Glucose 417 (70-105) H 12/28/18 17:24 Calcium 9.3 mg/dL (8.4-10.2) 12/28/18 17:41 Total Bilirubin 0.70 mg/dL (0.1-1.2) 12/28/18 17:41 AST 10 units/L (5-40) 12/28/18 17:41 ALT 9 units/L (7-56) 12/28/18 17:41 Alkaline Phosphatase 78 units/L (35-129) 12/28/18 17:41 Troponin T < 0.010 ng/mL (0.00-0.029) 12/28/18 18:35 Total Protein 7.0 g/dL (6.3-8.2) 12/28/18 17:41 Albumin 3.4 g/dL (3.9-5) L 12/28/18 17:41 Albumin/Globulin Ratio 0.9 % 12/28/18 17:41 Lipase 36 units/L (13-60) 12/28/18 18:35 Urine Color Yellow (Yellow) 12/28/18 20:30 Urine Turbidity Clear (Clear) 12/28/18 20:30 Urine pH 5.0 (5.0-7.0) 12/28/18 20:30 Ur Specific [place] 1.026 (1.003-1.030) 12/28/18 20:30 Urine Protein 30 mg/dl mg/dL (Negative) 12/28/18 20:30 Urine Glucose (UA) >=500 mg/dL (Negative) 12/28/18 20:30 Urine Ketones 20 mg/dL (Negative) 12/28/18 20:30 Urine Blood Neg (Negative) 12/28/18 20:30 Urine Nitrite Neg (Negative) 12/28/18 20:30 Urine Bilirubin Neg (Negative) 12/28/18 20:30 Urine Urobilinogen < 2.0 mg/dL (<2.0) 12/28/18 20:30 Ur Leukocyte Esterase Neg (Negative) 12/28/18 20:30 Urine WBC (Auto) 4.0 /HPF (0.0-6.0) 12/28/18 20:30 Urine RBC (Auto) 1.0 /HPF (0.0-6.0) 12/28/18 20:30 U Epithel Cells (Auto) 3.0 /HPF (0-13.0) 12/28/18 20:30 Urine Mucus Few /HPF 12/28/18 20:30 Plasma/Serum Alcohol < 0.01 % (0-0.07) 12/28/18 18:35 - Imaging and Cardiology CT scan - abdomen: report reviewed CT Scan - head: report reviewed Assessment and Plan Assessment and plan: DM2 with hyperglycemia secondary to medication noncompliance -On IVF, Lantus and SSI -will check hba1c level Unsteady gait -Most likely due to the uncontrolled DM -CT head negative -PT consulted -Consider further testing with MRI if needed Intractable N/V -On anti-emetics and IV fluid SIRS evidenced by HR >90 and wbc >12K due to noninfectious process -We'll hydrate patient and monitor New left upper lobe nodular opacity per imaging -Follow investigative testing with chest CT scan HTN -controlled -resume home meds Pseudohyponatremia -Corrected Na level is 141 GERD -On famotidine Tobacco abuse -Patient counseled on cessation DVT prophylaxis with heparin Disposition: Patient will be placed on inpatient status with plan for discharge in 2-3 days if clinically stable Time spent: 40 minutes
--- NOTE | 2018-12-28 23:27 | Cat Scan Report ---
FINAL REPORT EXAM: CT CHEST WO CON HISTORY: Left upper lobe nodular density demonstrated on the recent CT abdomen and pelvis. TECHNIQUE: Axial helical imaging through the chest with sagittal and coronal reformatted images obta ined. Comparison: CT abdomen and pelvis also performed today FINDINGS: Visualization of fine detail in portions of the chest is somewhat limited by motion artifact. There is an approximately 8 millimeter nodular density in the left upper lobe. There are smaller subpleural nodular densities in the lung apices bilaterally and in the right upper and lower lobes. There appears to be bilateral pulmonary emphysema. The trachea and bronchi are patent. The heart appears to be normal size. There is atherosclerotic vascular calcification of the coronary arteries. The thoracic aorta is normal caliber. There are small calcified mediastinal lymph nodes most consistent with chronic granulomatous change. The bony structures are notable for spondylitic change in the lower thoracic spine. IMPRESSION: 1. Study degraded by motion artifact. 2. Approximately 8 millimeter pulmonary nodule left upper lobe. 3. Additional smaller nodules in the lung apices bilaterally and in the subpleural regions of the rig ht upper and lower lobes. Comparison with previous chest CT is recommended. If no prior chest CT is available for comparison, per Fleischner criteria follow-up chest CT in 3-6 [facility] is recommended.
[2018-12-29 06:27] LABS: BUN/Creatinine Ratio 36; Blood Urea Nitrogen 25 mg/dL (7-17); Calcium 8.3 mg/dL (8.4-10.2); Chol/HDL Ratio 2.75 %; HDL Cholesterol 45 mg/dL (40-59); Hemolysis Index 17; LDL Cholesterol,Direct 70 mg/dL (50-130)
[2018-12-29] MEDS: SODIUM CHLORIDE FLUSH SYRINGE 10 ML IV SCH ×2 (09:21→22:21)
[2018-12-29] MEDS: HumaLOG SUB-Q SCH ×4 (09:21→22:20)
[2018-12-29] MEDS: PEPCID IV SCH ×2 (09:22→22:08)
[2018-12-29] MEDS: LANTUS SUB-Q SCH ×2 (09:22→22:12)
[2018-12-29] MEDS: HEPARIN SUB-Q SCH ×2 (09:22→22:16)
[2018-12-29] MEDS: K-DUR PO SCH ×2 (09:22→17:04)
[2018-12-29] MEDS ORDERED: MAGNESIUM SULFATE 3 GM in NACL 0.9% 100 ML IV ONE (09:30)
[2018-12-29] MEDS ORDERED: ANTIVERT PO PRN (15:50)
[2018-12-29] MEDS ORDERED: ZOFRAN ODT PO PRN (15:50)
[2018-12-29] MEDS ORDERED: NON-FORMULARY (Omeprazole [Omeprazole] 40 MG) PO SCH (16:00)
[2018-12-29] MEDS ORDERED: NON-FORMULARY (Sitagliptin Phosphate [Januvia] 100 MG) PO SCH (16:00)
[2018-12-29] MEDS: PROTONIX PO SCH (17:05)
[2018-12-29] MEDS: NORVASC PO SCH (17:05)
[2018-12-29] MEDS: TRADJENTA PO SCH (17:05)
[2018-12-29] MEDS: BABY ASPIRIN PO SCH (17:05)
--- NOTE | 2018-12-29 17:18 | Progress Note ---
Assessment and Plan Assessment and plan: DM2 with hyperglycemia secondary to medication noncompliance -On IVF, Lantus and SSIl Unsteady gait -Most likely due to the uncontrolled DM -CT head negative -PT consulted Intractable N/V -On anti-emetics and IV fluid SIRS evidenced by HR >90 and wbc >12K due to noninfectious process -We'll hydrate patient and monitor Lung nodules To follow as outpatient HTN -controlled -resume home meds GERD -On famotidine Tobacco abuse -Patient counseled on cessation DVT prophylaxis with heparin History Interval history: Feels better Hospitalist Physical - Physical exam Narrative exam: GEN: Not in acute distress, lying in bed HEENT: Normocephalic, atraumatic, Neck: supple, No JVD Lungs: Clear to auscultation bilaterally, no crackles or wheeze Heart:S1 and S2 regular, no murmurs, rubs or gallop, Abd:soft, non tender, non distended, normal bowel sounds Ext: No edema, no clubbing or cyanosis Neuro:Awake,alert,oriented x 3, moves all ext, no focal neurological signs - Constitutional Vitals: Temp Pulse Resp BP Pulse Ox 98.8 F 67 20 124/63 97 12/29/18 13:22 12/29/18 17:05 12/29/18 13:22 12/29/18 17:05 12/29/18 13:22 General appearance: Present: no acute distress Results - Labs CBC & Chem 7: 12/30/18 13:38 12/30/18 05:58 Labs: Laboratory Last Values WBC 13.0 K/mm3 (4.5-11.0) H 12/28/18 17:41 RBC 4.64 M/mm3 (3.65-5.03) 12/28/18 17:41 Hgb 14.6 gm/dl (10.1-14.3) H 12/28/18 17:41 Hct 43.6 % (30.3-42.9) H 12/28/18 17:41 MCV 94 fl (79-97) 12/28/18 17:41 MCH 32 pg (28-32) 12/28/18 17:41 MCHC 34 % (30-34) 12/28/18 17:41 RDW 13.1 % (13.2-15.2) L 12/28/18 17:41 Plt Count 216 K/mm3 (140-440) 12/28/18 17:41 Add Manual Diff Complete 12/28/18 17:41 Total Counted 100 12/28/18 17:41 Seg Neuts % (Manual) 95.0 % (40.0-70.0) H 12/28/18 17:41 Band Neutrophils % 0 % 12/28/18 17:41 Lymphocytes % (Manual) 3.0 % (13.4-35.0) L 12/28/18 17:41 Reactive Lymphs % (Man) 0 % 12/28/18 17:41 Monocytes % (Manual) 1.0 % (0.0-7.3) 12/28/18 17:41 Eosinophils % (Manual) 1.0 % (0.0-4.3) 12/28/18 17:41 Basophils % (Manual) 0 % (0.0-1.8) 12/28/18 17:41 Metamyelocytes % 0 % 12/28/18 17:41 Myelocytes % 0 % 12/28/18 17:41 Promyelocytes % 0 % 12/28/18 17:41 Blast Cells % 0 % 12/28/18 17:41 Nucleated RBC % Not Reportable 12/28/18 17:41 Seg Neutrophils # Man 12.4 K/mm3 (1.8-7.7) H 12/28/18 17:41 Band Neutrophils # 0.0 K/mm3 12/28/18 17:41 Lymphocytes # (Manual) 0.4 K/mm3 (1.2-5.4) L 12/28/18 17:41 Abs React Lymphs (Man) 0.0 K/mm3 12/28/18 17:41 Monocytes # (Manual) 0.1 K/mm3 (0.0-0.8) 12/28/18 17:41 Eosinophils # (Manual) 0.1 K/mm3 (0.0-0.4) 12/28/18 17:41 Basophils # (Manual) 0.0 K/mm3 (0.0-0.1) 12/28/18 17:41 Metamyelocytes # 0.0 K/mm3 12/28/18 17:41 Myelocytes # 0.0 K/mm3 12/28/18 17:41 Promyelocytes # 0.0 K/mm3 12/28/18 17:41 Blast Cells # 0.0 K/mm3 12/28/18 17:41 WBC Morphology Not Reportable 12/28/18 17:41 Hypersegmented Neuts Not Reportable 12/28/18 17:41 Hyposegmented Neuts Not Reportable 12/28/18 17:41 Hypogranular Neuts Not Reportable 12/28/18 17:41 Smudge Cells Not Reportable 12/28/18 17:41 Toxic Granulation Not Reportable 12/28/18 17:41 Toxic Vacuolation Not Reportable 12/28/18 17:41 Dohle Bodies Not Reportable 12/28/18 17:41 Pelger-Huet Anomaly Not Reportable 12/28/18 17:41 Adrian Rods Not Reportable 12/28/18 17:41 Platelet Estimate Appears normal 12/28/18 17:41 Clumped Platelets Not Reportable 12/28/18 17:41 Plt Clumps, EDTA Not Reportable 12/28/18 17:41 Large Platelets Not Reportable 12/28/18 17:41 Giant Platelets Not Reportable 12/28/18 17:41 Platelet Satelliting Not Reportable 12/28/18 17:41 Plt Morphology Comment Not Reportable 12/28/18 17:41 RBC Morphology Not Reportable 12/28/18 17:41 Dimorphic RBCs Not Reportable 12/28/18 17:41 Polychromasia Not Reportable 12/28/18 17:41 Hypochromasia Not Reportable 12/28/18 17:41 Poikilocytosis Not Reportable 12/28/18 17:41 Anisocytosis Not Reportable 12/28/18 17:41 Microcytosis Not Reportable 12/28/18 17:41 Macrocytosis Not Reportable 12/28/18 17:41 Spherocytes Not Reportable 12/28/18 17:41 Pappenheimer Bodies Not Reportable 12/28/18 17:41 Sickle Cells Not Reportable 12/28/18 17:41 Target Cells Not Reportable 12/28/18 17:41 Tear Drop Cells Not Reportable 12/28/18 17:41 Ovalocytes Not Reportable 12/28/18 17:41 Helmet Cells Not Reportable 12/28/18 17:41 Senior-[place] Bodies Not Reportable 12/28/18 17:41 [place] Rings Not Reportable 12/28/18 17:41 [place] Cells Not Reportable 12/28/18 17:41 Bite Cells Not Reportable 12/28/18 17:41 Crenated Cell Not Reportable 12/28/18 17:41 Elliptocytes Not Reportable 12/28/18 17:41 Acanthocytes (Spur) Not Reportable 12/28/18 17:41 Rouleaux Not Reportable 12/28/18 17:41 Hemoglobin C Crystals Not Reportable 12/28/18 17:41 Schistocytes Not Reportable 12/28/18 17:41 Malaria parasites Not Reportable 12/28/18 17:41 Pawel Bodies Not Reportable 12/28/18 17:41 Hem Pathologist Commnt No 12/28/18 17:41 PT 13.0 Sec. (12.2-14.9) 12/28/18 18:35 INR 0.93 (0.87-1.13) 12/28/18 18:35 APTT 24.3 Sec. (24.2-36.6) 12/28/18 18:35 VBG pH 7.407 (7.320-7.420) 12/28/18 20:04 Sodium 136 mmol/L (137-145) L 12/29/18 04:58 Potassium 3.3 mmol/L (3.6-5.0) L 12/29/18 04:58 Chloride 97.0 mmol/L (98-107) L 12/29/18 04:58 Carbon Dioxide 27 mmol/L (22-30) 12/29/18 04:58 Anion Gap 15 mmol/L 12/29/18 04:58 BUN 25 mg/dL (7-17) H 12/29/18 04:58 Creatinine 0.7 mg/dL (0.7-1.2) 12/29/18 04:58 Estimated GFR > 60 ml/min 12/29/18 04:58 BUN/Creatinine Ratio 36 % 12/29/18 04:58 Glucose 261 mg/dL (65-100) H 12/29/18 04:58 POC Glucose 197 (70-105) H 12/29/18 16:36 Hemoglobin A1c 16.2 % (4-6) H 12/29/18 04:38 Calcium 8.3 mg/dL (8.4-10.2) L 12/29/18 04:58 Magnesium 1.60 mg/dL (1.7-2.3) L 12/29/18 04:58 Total Bilirubin 0.70 mg/dL (0.1-1.2) 12/28/18 17:41 AST 10 units/L (5-40) 12/28/18 17:41 ALT 9 units/L (7-56) 12/28/18 17:41 Alkaline Phosphatase 78 units/L (35-129) 12/28/18 17:41 Troponin T < 0.010 ng/mL (0.00-0.029) 12/28/18 18:35 Total Protein 7.0 g/dL (6.3-8.2) 12/28/18 17:41 Albumin 3.4 g/dL (3.9-5) L 12/28/18 17:41 Albumin/Globulin Ratio 0.9 % 12/28/18 17:41 Triglycerides 130 mg/dL (2-149) 12/29/18 04:58 Cholesterol 124 mg/dL (50-199) 12/29/18 04:58 LDL Cholesterol Direct 70 mg/dL (50-130) 12/29/18 04:58 HDL Cholesterol 45 mg/dL (40-59) 12/29/18 04:58 Cholesterol/HDL Ratio 2.75 % 12/29/18 04:58 Lipase 36 units/L (13-60) 12/28/18 18:35 Urine Color Yellow (Yellow) 12/28/18 20:30 Urine Turbidity Clear (Clear) 12/28/18 20:30 Urine pH 5.0 (5.0-7.0) 12/28/18 20:30 Ur Specific [place] 1.026 (1.003-1.030) 12/28/18 20:30 Urine Protein 30 mg/dl mg/dL (Negative) 12/28/18 20:30 Urine Glucose (UA) >=500 mg/dL (Negative) 12/28/18 20:30 Urine Ketones 20 mg/dL (Negative) 12/28/18 20:30 Urine Blood Neg (Negative) 12/28/18 20:30 Urine Nitrite Neg (Negative) 12/28/18 20:30 Urine Bilirubin Neg (Negative) 12/28/18 20:30 Urine Urobilinogen < 2.0 mg/dL (<2.0) 12/28/18 20:30 Ur Leukocyte Esterase Neg (Negative) 12/28/18 20:30 Urine WBC (Auto) 4.0 /HPF (0.0-6.0) 12/28/18 20:30 Urine RBC (Auto) 1.0 /HPF (0.0-6.0) 12/28/18 20:30 U Epithel Cells (Auto) 3.0 /HPF (0-13.0) 12/28/18 20:30 Urine Mucus Few /HPF 12/28/18 20:30 Plasma/Serum Alcohol < 0.01 % (0-0.07) 12/28/18 18:35 Nutrition/Malnutrition Assess - Dietary Evaluation Nutrition/Malnutrition Findings: Nutrition Notes Start: 12/29/18 13:58 Freq: Status: Active Protocol: Document 12/29/18 13:58 (Rec: 12/29/18 14:02 [id number]) Co-Sign 12/29/18 13:58 LP Nutrition Notes Need for Assessment generated from: [facility] Initial or Follow up Assessment Current Diagnosis Diabetes Hypertension Other Pertinent Diagnosis GERD, hyperglycemia, dehydration, smoker Current Diet Consistent Carbohydrate Labs/Tests Na: 136 K: 3.3 BUN: 25 Glu: 261 Ca: 8.3 M.6 Pertinent Medications Reviewed Height 5 ft 7 in Weight 56.699 kg [place] Body Weight (kg) 61.36 BMI 19.5 Weight Status Appropriate Subjective/Other Information Malnutrition Screen. Skin Risk : was 17 but now 20. Patient states appetite is good. Patient reports eating 100% of meals. Patient reports N/V a few days ago but not experiencing it anymore. Patient states UBW being 125- 135#. Percent of energy/protein needs met: 100%/100% Burn Absent Trauma Absent #1 Nutrition Diagnosis Underweight Etiology older age As Evidenced by Signs and Symptoms BMI: 19.6 Is patient on ventilator? No Is Patient Ambulatory and/or Out of Bed Yes REE-([facility] [place]-ambulatory/OOB) [ 1410.006 [id number]] Kcal/Kg value to use for calculation 30 Approximate Energy Requirements Using 1701 kcal/Kg Calculation Used for Recommendations Kcal/kg Additional Notes Protein: 57-68 g (1-1.2 g/kg) Fluid: 1 ml/kcal Nutrition Intervention Change Diet Order: Cardiac/Consistent CHO Add Supplement/Snack (indicate name/kcal Ensure Enlive one daily ( /protein ) [place] and Vanilla) Provides kCal: 350 Provides Protein (gm) 20 Goal #1 Weight gain Anticipated Discharge Needs: Cardiac/Consistent Carbohydrate Follow-Up By: 01/01/19 Additional Comments F/U: weight status and ONS intake
[2018-12-29] MEDS ORDERED: NON-FORMULARY (Metformin Hcl [Glucophage] 1,000 MG) PO SCH (22:00)
[2018-12-29] MEDS ORDERED: PRAVACHOL PO SCH (22:00)
[2018-12-29] MEDS ORDERED: NON-FORMULARY (Pravastatin Sodium [Pravastatin] 10 MG) PO SCH (22:00)
[2018-12-29] MEDS: GLUCOPHAGE PO SCH (22:08)
[2018-12-30 06:42] LABS: BUN/Creatinine Ratio 40; Blood Urea Nitrogen 28 mg/dL (7-17); Calcium 8.1 mg/dL (8.4-10.2); Hemolysis Index 7
[2018-12-30 07:55] VITALS: BP 122/69
[2018-12-30] MEDS: LANTUS SUB-Q SCH ×2 (08:44→10:22)
[2018-12-30] MEDS: HumaLOG SUB-Q SCH ×2 (08:44→11:40)
[2018-12-30] MEDS: GLUCOPHAGE PO SCH ×2 (08:45→10:21)
[2018-12-30] MEDS: SODIUM CHLORIDE FLUSH SYRINGE 10 ML IV SCH ×2 (08:45→10:23)
[2018-12-30] MEDS: BABY ASPIRIN PO SCH ×2 (08:46→10:21)
[2018-12-30] MEDS: PROTONIX PO SCH ×2 (08:47→10:22)
[2018-12-30] MEDS: NORVASC PO SCH ×2 (08:47→10:22)
[2018-12-30] MEDS: TRADJENTA PO SCH ×2 (08:47→10:23)
[2018-12-30] MEDS: HEPARIN SUB-Q SCH ×2 (08:48→10:22)
[2018-12-30] MEDS: PEPCID IV SCH ×2 (08:48→10:22)
--- NOTE | 2018-12-30 11:41 | Discharge Summary ---
Providers - Providers Date of Admission: 12/28/18 22:10 Date of discharge: 12/30/18 Attending physician: URMILA ISAAC 12/28/18 23:25 Physical Therapy Evaluation and Treat [CONS] Routine Comment: Reason For Exam: unsteady gait Primary care physician: [employer] Hospitalization Condition: Fair Hospital course: Patient is a 78 year old -[place] female with history of diabetes mellitus and hypertension who presented to the ED on account of a day history of nausea with vomiting. She has associated abdominal discomfort, generalized weakness, unsteady gait, subjective fever with chills, headaches, lightheadedness, dry cough and palpitation. She also has positive history of excessive thirst, urinary urgency and polyuria. Patient stated that she traveled to [place] for 4 days for his brother's during which she did not take her medications because she forgot them in [place]. She denies chest pain. Patient was evaluated in ED. Initial glucose was 475 with normal bicarb level. He was given Insulin and admitted. Home meds were resumed. CT revealed pulm nodules. I discussed this with patient and family at bedside and recommended repeat CT Chest in 3 months. Blood glucose normalized and she was discharged home on 12/30/18. Total time spent on discharge, 32 mins Disposition: [id number] HOME UNDER HOME HLTH - Discharge Diagnoses (1) Dehydration Status: Acute (2) Hyperglycemia Status: Acute (3) Diabetes mellitus type 2, uncontrolled Status: Acute Core Measure Documentation - Palliative Care Palliative Care/ Comfort Measures: Not Applicable - Core Measures Any of the following diagnoses?: none Exam - Physical Exam Narrative exam: GEN: Not in acute distress, lying in bed HEENT: Normocephalic, atraumatic, Neck: supple, No JVD Lungs: Clear to auscultation bilaterally, no crackles or wheeze Heart:S1 and S2 regular, no murmurs, rubs or gallop, Abd:soft, non tender, non distended, normal bowel sounds Ext: No edema, no clubbing or cyanosis Neuro:Awake,alert,oriented x 3, moves all ext, no focal neurological signs - Constitutional Vitals: Temp Pulse Resp BP Pulse Ox 97.7 F 68 18 122/69 95 12/30/18 07:51 12/30/18 10:00 12/30/18 07:51 12/30/18 08:47 12/30/18 07:51 Plan Activity: no restrictions Diet: low fat, low cholesterol, diabetic Special Instructions: physical therapy Additional Instructions: 1.Follow up with Dr. Val nicolas in 1 week. 2.Lung nodules to be followed with repeat CT Chest in 3 months to be followed by Dr. Val Bernal. 3.Home health PT Follow up with: PRIMARY CARE, [Primary Care Provider] - 3-5 Days Prescriptions: Insulin Glargine [Lantus VIAL] 25 units SUB-Q BID #1 vial Promethazine [Phenergan TAB] 25 mg PO Q6HR PRN #20 tab PRN Reason: Nausea or vomiting
[2018-12-30 13:51] LABS: Hematocrit 36.7 % (30.3-42.9); Hemoglobin 12.7 gm/dl (10.1-14.3); Mean Corpuscular HGB Conc 35 % (30-34); Mean Corpuscular Volume 95 fl (79-97); Platelet Count 204 K/mm3 (140-440); Red Blood Count 3.88 M/mm3 (3.65-5.03); Red Cell Distribution Width 12.8 % (13.2-15.2)
== END 2018-12-30 15:09 | disposition home health service (06) | DRG 638 ==
LOC: ED 17:09 → 2B-ACE 22:10
PROVIDERS: ADMIT Internal Medicine; ATTEND Internal Medicine
DX: E11.65 Type 2 diabetes mellitus with hyperglycemia (principal); R65.10 Systemic inflammatory response syndrome (SIRS) of non-infectious origin without acute organ dysfunction; E87.1 Hypo-osmolality and hyponatremia; R26.81 Unsteadiness on feet; K21.9 Gastro-esophageal reflux disease without esophagitis; E78.00 Pure hypercholesterolemia, unspecified; F17.210 Nicotine dependence, cigarettes, uncomplicated; E86.0 Dehydration; E78.5 Hyperlipidemia, unspecified; Z88.6 Allergy status to analgesic agent; Z88.0 Allergy status to penicillin; Z91.030 Bee allergy status; Z98.51 Tubal ligation status; Z91.19 Patient's noncompliance with other medical treatment and regimen; Z71.6 Tobacco abuse counseling; Z79.84 Long term (current) use of oral hypoglycemic drugs
CPT/HCPCS: 36415; 70450; 71250; 74176; 80048; 80053; 80061; 80320; 81001; 82805; 82962; 83036; 83690; 83735; 84484; 85007; 85025; 85027; 85610; 85730; 87040; 93005; 93010; G0378; A9270-GY; G0480; J1644; J1815; J3475; J7030

== ENCOUNTER 2019-04-06 11:28 | Inpatient (IN) | payer MEDICARE, OTHER ==
[2019-04-06] MEDS ORDERED: ZOFRAN IV ONE (12:08)
[2019-04-06] MEDS ORDERED: TYLENOL PO ONE (12:08)
--- NOTE | 2019-04-06 12:08 | Emergency Department Report ---
HPI - General Chief Complaint: Dizziness Time Seen by Provider: 04/06/19 11:49 - HPI HPI: 78-year-old female presents to the emergency department from home with complaint of some dizziness, feeling off balance, confusion, abdominal pain, nausea, vomiting. The patient's daughter is currently here at bedside and is helping with her history. Apparently the patient was fishing about one week ago when she caught a catfish and fell backwards. Since that time he has been complaining of some pain in her backside. The patient's daughter called her this morning and the patient seemed altered or confused. She went over to see her and the patient did appear altered. She was trying to get medication out of an empty bottle. The patient had to hold onto the wall and furniture in order to ambulate around. At one point she had a sharp pain across her abdomen and began having nausea and vomiting. She had no complaints of any fever or chills but did present with a fever here. She did not take anything for her symptoms prior to presentation. She has a past medical history of hypertension, high cholesterol, insulin dependent diabetes, GERD, vertigo, and a "heart aneurysm." She has a primary care physician but says that she does not want to continue seeing them. No recent travel or sick contacts at home. ED Past Medical Hx - Past Medical History Previous Medical History?: Yes Hx Hypertension: Yes Hx Diabetes: Yes Hx GERD: Yes Hx Arthritis: Yes (legs) Hx HIV: No Additional medical history: Hypercholesterolemia,vertigo, heart aneurysm - Surgical History Past Surgical History?: Yes Additional Surgical History: Ectopic - Social History Smoking Status: Current Every Day Smoker Substance Use Type: None - Medications Home Medications: Home Medications Medication Instructions Recorded Confirmed Last Taken Type Aspirin [Aspirin BABY CHEW TAB] 81 mg PO DAILY 04/20/15 04/06/19 04/05/19 History Chlorthalidone 25 mg PO DAILY 12/29/18 04/06/19 04/05/19 History Omeprazole 40 mg PO DAILY 12/29/18 04/06/19 04/05/19 History Insulin Detemir [Levemir] 20 unit SQ BID 04/06/19 04/06/19 04/05/19 History ED Review of Systems ROS: Stated complaint: DIZZINESS,VOMITING,NAUSEA Other details as noted in HPI Constitutional: fever. denies: diaphoresis Eyes: denies: eye pain, vision change ENT: denies: ear pain, throat pain Respiratory: denies: cough, shortness of breath Cardiovascular: denies: chest pain, palpitations Gastrointestinal: abdominal pain, nausea, vomiting Genitourinary: dysuria. denies: discharge Musculoskeletal: back pain. denies: arthralgia Skin: denies: rash, lesions Neurological: headache, confusion, other (dizziness, vertigo) Physical Exam - Physical Exam Vital Signs: Vital Signs 04/06/19 04/06/19 11:44 11:50 Temperature 100.6 F H 101.2 F H Pulse Rate 106 H Respiratory 35 H Rate Blood Pressure 142/73 Blood Pressure 142/73 [Right] O2 Sat by Pulse 100 Oximetry Physical Exam: GENERAL: The patient is well-developed well-nourished. HENT: Normocephalic. Atraumatic. Patient has moist mucous membranes. EYES: Extraocular motions are intact. Pupils equal reactive to light bilaterally. NECK: Supple. Trachea is midline. CHEST/LUNGS: Clear to auscultation. There is no respiratory distress noted. HEART/CARDIOVASCULAR: Regular. There is mild tachycardia. There is no murmur. ABDOMEN: Abdomen is soft, nontender. Patient has normal bowel sounds. There is no abdominal distention. SKIN: Skin is warm and dry. NEURO: The patient is awake, and cooperative but confused. A O [address] but not time. Cranial nerves II through XII grossly intact. The patient has normal speech. MUSCULOSKELETAL: There is no tenderness or deformity. There is no evidence of acute injury. BACK: There is both midline and bilateral paraspinal lower lumbar and sacral tenderness to palpation but no obvious deformity or step-off. ED Course Vital Signs 04/06/19 04/06/19 11:44 11:50 Temperature 100.6 F H 101.2 F H Pulse Rate 106 H Respiratory 35 H Rate Blood Pressure 142/73 Blood Pressure 142/73 [Right] O2 Sat by Pulse 100 Oximetry ED Medical Decision Making - Lab Data Result diagrams: 04/06/19 11:52 04/06/19 11:52 - EKG Data -: EKG Interpreted by Nh EKG shows normal: sinus rhythm, axis (left axis deviation), intervals, QRS co mplexes (LAFB, LVH), ST-T waves Rate: normal - EKG Data When compared to previous EKG there are: no significant change Interpretation: unchanged when compared t (01/07/19) - Radiology Data Radiology results: report reviewed, image reviewed interpreted by me: Chest x-ray does not show any acute process. There are no pleural effusions, obvious pneumonia and there is no pneumothorax. Abdominal x-ray shows nonspecific nonobstructive bowel gas X-ray of the pelvis and the lumbar spine do not show any fracture, subluxations or any acute processes. PROCEDURE: CT HEAD/BRAIN WO CON TECHNIQUE: Computerized tomography of the head was performed without contrast material. CT DOSE LENGTH PRODUCT: 927.6 mGy-cm. HISTORY: Lightheadedness. Dizziness COMPARISONS: None currently available. FINDINGS: There is no evidence for acute ischemia. There is no hemorrhage. There is no midline shift. There is no hydrocephalus. There is no mass. Age appropriate martines-white matter attenuation is noted. There is no calvarial fracture. The temporal bones demonstrate aerated mastoid air cells. The middle ears appear unremarkable. Paranasal sinuses are unremarkable. Globes are intact. IMPRESSION: * No acute intracranial findings. This document is electronically signed by Eduardo Castillo MD., April 06 2019 01:28:10 PM ET Transcribed By: TYM Dictated By: EDUARDO CASTILLO MD Electronically Authenticated By: EDUARDO CASTILLO MD Signed Date/Time: 04/06/19 6840 - Medical Decision Making This patient presents to the emergency department with a complaint of some dizziness, nausea and vomiting, abdominal pain and feeling off balance with some unstable gait at home. CT of the head did not show any bleed, shift, mass, ischemia, or any other acute process. Abdominal x-ray shows nonspecific nonobstructive bowel gas. The patient's daughter said that she has been complaining of some pain towards the lower back and sacral/buttock region, so x- rays were done of these areas as well that did not show any fractures, dislocations or any acute processes. The patient has hyperglycemia without any signs of DKA. She has an equivocal leukocytosis of about 15,000. No source of infection was definitively found for her low-grade fever. It was treated with Tylenol and Toradol with resolution. The patient will be admitted to the hospital for her altered mental status and gait instability and was accepted for admission by the hospitalist, Dr. Ling. - Differential Diagnosis Sepsis, TIA, CVA, Critical Care Time: No Critical care attestation.: If time is entered above; I have spent that time in minutes in the direct care of this critically ill patient, excluding procedure time. ED Disposition Clinical Impression: Gait instability, SIRS (systemic inflammatory response syndrome), Dizziness Disposition: OP ADMIT IP TO THIS HOSP Is pt being admited?: Yes Condition: Stable Time of Disposition: 14:00 - Assessment Assessment Interval: Baseline - Level of Consciousness 1a. Level of Consciousness: alert/keenly responsive - LOC Questions 1b. LOC Questions: answers both correctly - LOC Command 1c. LOC Commands: performs tasks correctly - Best Gaze 2. Best Gaze: normal - Visual 3. Visual: no visual loss - Facial Palsy 4. Facial Palsy: normal symmetrical movement - Motor Arm 5a. Motor Arm Left: no drift 5b. Motor Arm Right: no drift - Motor Leg 6a. Motor Leg Left: no drift 6b. Motor Leg Right: no drift - Limb Ataxia 7. Limb Ataxia: absent - Sensory 8. Sensory: normal - Best Language 9. Best Language: no aphasia - Dysarthria 10. Dysarthria: normal - Extinction and Inattention 11. Extinction/Inattention: no abnormality - Scoring Total Score: 0 Stroke Severity: No Stroke Symptoms
[2019-04-06 12:09] LABS: Hemoglobin 14.8 gm/dl (10.1-14.3); Mean Corpuscular HGB Conc 34 % (30-34); Mean Corpuscular Volume 94 fl (79-97); Platelet Count 228 K/mm3 (140-440); Red Blood Count 4.59 M/mm3 (3.65-5.03); Red Cell Distribution Width 13.7 % (13.2-15.2)
[2019-04-06 12:33] LABS: Alanine Aminotransferase 12 units/L (7-56); BUN/Creatinine Ratio 30; Blood Urea Nitrogen 24 mg/dL (7-17); Calcium 9.6 mg/dL (8.4-10.2); Hemolysis Index 18
[2019-04-06 12:58] LABS: Band Neutrophils # (Manual) 1.2 K/mm3; Basophils % (Manual) 0 % (0.0-1.8); Eosinophils % (Manual) 0 % (0.0-4.3); Platelet Estimate Consistent w Auto; RBC Morphology Normal; Total Cells Counted 100
[2019-04-06] MEDS ORDERED: TORADOL IV ONE (13:26)
--- NOTE | 2019-04-06 13:29 | Cat Scan Report ---
PROCEDURE: CT HEAD/BRAIN WO CON TECHNIQUE: Computerized tomography of the head was performed without contrast material. CT DOSE LENGTH PRODUCT: 927.6 mGy-cm. HISTORY: Lightheadedness. Dizziness COMPARISONS: None currently available. FINDINGS: There is no evidence for acute ischemia. There is no hemorrhage. There is no midline shift. There is no hydrocephalus. There is no mass. Age appropriate martines-white matter attenuation is noted. There is no calvarial fracture. The temporal bones demonstrate aerated mastoid air cells. The middle ears appear unremarkable. Paranasal sinuses are unremarkable. Globes are intact. IMPRESSION: * No acute intracranial findings. This document is electronically signed by Eduardo Marino MD., April 06 2019 01:28:10 PM ET
--- NOTE | 2019-04-06 13:41 | XRay Report ---
AP PELVIS: HISTORY: Fall, back/buttock pain. Mild osteopenia is suspected. There is no evidence for pelvic fracture or diastasis. Bilateral hips are anatomic. The sacrum is partially obscured by stool but appears grossly intact. IMPRESSION: No acute pelvic injury is identified. Osteopenia.
--- NOTE | 2019-04-06 13:42 | XRay Report ---
ABDOMINAL SERIES: History: Abdominal pain. Supine and upright views of the abdomen and frontal view of the chest are submitted. There is gas mixed with moderate stool throughout the colon. There are no dilated loops of bowel or air-fluid levels. There is no free intraperitoneal gas. The lungs are clear. IMPRESSION: Fecal retention.
--- NOTE | 2019-04-06 13:42 | XRay Report ---
LUMBOSACRAL SPINE, 3 VIEWS: History: Back pain Findings: Osteopenia is evident. Moderate multilevel degenerative disc disease and facet arthropathy are identified. L5-S1 appears to be the most affected level. There is no evidence for compression deformity, subluxation or bone lesion. Impression: Osteopenia. Multilevel degenerative changes. No acute injury is appreciated on x-ray.
[2019-04-06] MEDS ORDERED: LEVAQUIN 750MG/150ML 750 MG/150 ML BAG IV ONE (13:58)
[2019-04-06] MEDS ORDERED: NACL 0.9% 500 ML 500 ML IV ONE (13:58)
[2019-04-06 14:20] LABS: Amphetamine Screen,Urine PRESUMPTIVE NEGATIVE; Benzodiazepines Screen,Urine PRESUMPTIVE NEGATIVE; Cannabinoid Screen,Urine PRESUMPTIVE NEGATIVE; Cocaine Screen,Urine PRESUMPTIVE NEGATIVE; Methadone Screen,Urine PRESUMPTIVE NEGATIVE; Opiate Screen,Urine PRESUMPTIVE NEGATIVE
[2019-04-06 14:44] LABS: Bacteria,Urine 1+ /HPF (Negative); Bilirubin,Urine NEG (Negative); Blood,Urine NEG (Negative); Color,Urine Yellow (Yellow); Mucus,Urine FEW /HPF; Protein,Urine <15 mg/dL mg/dL (Negative)
[2019-04-06] MEDS ORDERED: PNEUMOVAX 23 IM ONE (17:48)
[2019-04-06] MEDS ORDERED: IBUPROFEN PO PRN (20:50)
[2019-04-06] MEDS ORDERED: DILAUDID IV PRN (20:53)
[2019-04-06] MEDS ORDERED: TYLENOL PO PRN (20:53)
[2019-04-06] MEDS ORDERED: SODIUM CHLORIDE FLUSH SYRINGE 10 ML IV PRN (20:53)
[2019-04-06] MEDS ORDERED: ZOFRAN IV PRN (20:53)
[2019-04-06] MEDS ORDERED: NON-FORMULARY (Omeprazole [Omeprazole] 40 MG) PO SCH (21:00)
[2019-04-06] MEDS: NACL 0.9% 1000 ML 1,000 ML IV SCH (21:42)
[2019-04-06] MEDS: PEPCID PO SCH (21:43)
[2019-04-06] MEDS: BABY ASPIRIN PO SCH (21:43)
[2019-04-06] MEDS: ROCEPHIN/NS 2 GM/100 ML 2 GM/100 ML BAG IV SCH (22:07)
[2019-04-06] MEDS: THALITONE PO SCH (22:19)
[2019-04-06] MEDS: LANTUS SUB-Q SCH (22:19)
[2019-04-06] MEDS: SODIUM CHLORIDE FLUSH SYRINGE 10 ML IV SCH (22:21)
[2019-04-06] MEDS: HumaLOG SUB-Q SCH (22:21)
[2019-04-07 06:26] LABS: Basophils % (Auto) 0.1 % (0.0-1.8); Eosinophils # (Auto) 0.4 K/mm3 (0.0-0.4); Eosinophils % (Auto) 4.2 % (0.0-4.3); Hematocrit 33.4 % (30.3-42.9); Hemoglobin 11.6 gm/dl (10.1-14.3); Lymphocytes # (Auto) 0.9 K/mm3 (1.2-5.4); Lymphocytes % (Auto) 9.7 % (13.4-35.0); Mean Corpuscular HGB Conc 35 % (30-34); Mean Corpuscular Volume 94 fl (79-97); Monocytes # (Auto) 0.3 K/mm3 (0.0-0.8); Monocytes % (Auto) 3.7 % (0.0-7.3); Platelet Count 195 K/mm3 (140-440); Red Blood Count 3.55 M/mm3 (3.65-5.03); Red Cell Distribution Width 13.6 % (13.2-15.2)
[2019-04-07 06:46] LABS: Alanine Aminotransferase 8 units/L (7-56); Albumin 2.9 g/dL (3.9-5); BUN/Creatinine Ratio 32; Blood Urea Nitrogen 32 mg/dL (7-17); Calcium 8.4 mg/dL (8.4-10.2); Hemolysis Index 2
--- NOTE | 2019-04-07 06:47 | Event Note ---
Date: 04/06/19 Acute Encephalopathy SIRS UTI IDDM
--- NOTE | 2019-04-07 07:43 | History and Physical Report ---
CHIEF COMPLAINT: Fever, dizziness, and confusion. HISTORY OF PRESENT ILLNESS: A 78-year-old -[place]ish female who presents with dizziness and unsteadiness while walking and confusion. Also, abdominal pain, nausea and vomiting. Apparently, the patient was doing well until 1 week ago. She had a fall 1 week ago and since then has been complaining of pain in the lower back. The patient lives alone. Daughter called the patient and the patient was altered and confused, hence brought her to the hospital. The patient has been having high fever. Unable to walk. The patient has history of hypertension, diabetes, and vertigo. No exacerbating or relieving factors. In summary, the patient has altered sensorium with high fever. PAST MEDICAL HISTORY: Significant for hypertension, diabetes, GERD, arthritis, hyperlipidemia, heart aneurysm and vertigo. PAST SURGICAL HISTORY: Ectopic SOCIAL HISTORY: Smokes about half a pack a day. FAMILY HISTORY: Hypertension. CURRENT MEDICATIONS: Chlorthalidone 25 mg once a day and omeprazole 40 mg once a day and insulin 20 units b.i.d. REVIEW OF SYSTEMS: Significant for unsteadiness, dizziness, vomiting, nausea and high fevers. Otherwise, review of systems is negative. PHYSICAL EXAMINATION: GENERAL: Elderly female, lethargic, unable to give history. VITAL SIGNS: Temperature 100.6, pulse is 106, respiratory rate is 35, blood pressure 142/73. HEENT: Unremarkable. Pupils are equal and reactive. NECK: Supple, no lymphadenopathy, no thyromegaly. LUNGS: Clear to auscultation and percussion. Good air entry. CARDIOVASCULAR: S1, S2 heard. No gallop, no murmur, no rub. Apical impulse in left fifth intercostal space and midclavicular line. ABDOMEN: Soft and benign. No hepatosplenomegaly, no guarding, no rigidity. Hernial orifices are normal. EXTREMITIES: Good pedal pulses. No pedal edema. CENTRAL NERVOUS SYSTEM: Alert and oriented x 4, nonfocal exam. The patient is lethargic. SKIN: Normal. LABORATORY DATA: CT head, no acute ischemia. Chest x-ray, no infiltrates. X-ray of the pelvis and lumbar did not show any fractures. Chest x-ray: No acute process. EKG: Sinus rhythm, heart rate of 100 per minute, left axis deviation, left anterior fascicular block, LVH. White count is 15,300. H and H is 14.8 and 43.0. Sodium is 139, potassium is 4.0, BUN and creatinine is 24 and 0.8, glucose is 237. Hemoglobin A1c is 8.6. Urine shows 13 white cells. Drug screen was negative. ASSESSMENT AND PLAN: 1. Acute encephalopathy. The patient has a high fever and the patient is lethargic. IV fluids and IV antibiotics for now. 2. Systemic inflammatory response syndrome . The patient has urinary tract infection with white blood cells of 13 in urine. IV antibiotics initiated. Blood cultures initiated. 3. Acute dehydration. IV fluids for now. 4. Insulin-dependent diabetes, insulin coverage and continue long-acting insulin 20 units twice a day and coverage. 5. Deep venous thrombosis prophylaxis, Lovenox 40 mg subcutaneous daily. In summary, the patient has acute encephalopathy, SIRS, urinary tract infection, and insulin-dependent diabetes. JOB# [id number] ROLAND/KASSY NOVA
[2019-04-07] MEDS: HumaLOG SUB-Q SCH ×4 (08:22→22:54)
[2019-04-07] MEDS: LANTUS SUB-Q SCH ×2 (10:01→22:47)
[2019-04-07] MEDS: THALITONE PO SCH (10:01)
[2019-04-07] MEDS: SODIUM CHLORIDE FLUSH SYRINGE 10 ML IV SCH (10:02)
[2019-04-07] MEDS: BABY ASPIRIN PO SCH (10:02)
[2019-04-07] MEDS: PEPCID PO SCH ×2 (10:02→22:47)
[2019-04-07] MEDS: ROCEPHIN/NS 2 GM/100 ML 2 GM/100 ML BAG IV SCH (10:30)
[2019-04-07] MEDS: NACL 0.9% 1000 ML 1,000 ML IV SCH (10:36)
--- NOTE | 2019-04-07 12:40 | Progress Note ---
Assessment and Plan Assessment and plan: --Metabolic encephalopathy; multifactorial, advanced age, dementia probably secondary to sepsis, dehydration Continue current management and supportive care --Urinary tract infection; continue empiric antibiotics, follow cultures --SIRS; secondary to UTI, continue antibiotics follow cultures --Hypotension; IV fluids, supportive care --Constipation/fecal retention on CT abdomen; stool softeners, milk of magnesia, consider enema if no improvement --Type 2 diabetes mellitus; Accu-Chek sliding scale coverage and ADA diet and insulin as needed --Severe malnutrition/hypoalbuminemia; nutrition supplements, nutrition consult as needed --Full CODE STATUS --DVT prophylaxis; Lovenox Monitor closely and adjust management as needed History Interval history: Patient seen and examined medical records reviewed No new events reported by nursing staff Admitted with nausea vomiting dizziness Feels slightly better No new complaints Hospitalist Physical - Constitutional Vitals: Temp Pulse Resp BP Pulse Ox 98.0 F 70 18 98/48 95 04/07/19 07:21 04/07/19 07:21 04/07/19 10:00 04/07/19 07:21 04/07/19 10:00 General appearance: Present: no acute distress, well-nourished - EENT Eyes: Present: PERRL, EOM intact - Neck Neck: Present: supple, normal ROM - Respiratory Respiratory effort: normal Respiratory: bilateral: diminished, negative: rales, rhonchi, wheezing - Cardiovascular Rhythm: regular Heart Sounds: Present: S1 & S2 - Extremities Extremities: no ischemia, No edema - Abdominal General gastrointestinal: soft, non-tender, non-distended, normal bowel sounds - Integumentary Integumentary: Present: clear, warm - Psychiatric Psychiatric: appropriate mood/affect, cooperative - Neurologic Neurologic: CNII-XII intact, moves all extremities Results - Labs CBC & Chem 7: 04/07/19 05:28 04/07/19 05:28 Labs: Laboratory Last Values WBC 9.0 K/mm3 (4.5-11.0) 04/07/19 05:28 RBC 3.55 M/mm3 (3.65-5.03) L 04/07/19 05:28 Hgb 11.6 gm/dl (10.1-14.3) D 04/07/19 05:28 Hct 33.4 % (30.3-42.9) D 04/07/19 05:28 MCV 94 fl (79-97) 04/07/19 05:28 MCH 33 pg (28-32) H 04/07/19 05:28 MCHC 35 % (30-34) H 04/07/19 05:28 RDW 13.6 % (13.2-15.2) 04/07/19 05:28 Plt Count 195 K/mm3 (140-440) 04/07/19 05:28 Lymph % (Auto) 9.7 % (13.4-35.0) L 04/07/19 05:28 Hughes % (Auto) 3.7 % (0.0-7.3) 04/07/19 05:28 Eos % (Auto) 4.2 % (0.0-4.3) 04/07/19 05:28 Baso % (Auto) 0.1 % (0.0-1.8) 04/07/19 05:28 Lymph # 0.9 K/mm3 (1.2-5.4) L 04/07/19 05:28 Hughes # 0.3 K/mm3 (0.0-0.8) 04/07/19 05:28 Eos # 0.4 K/mm3 (0.0-0.4) 04/07/19 05:28 Baso # 0.0 K/mm3 (0.0-0.1) 04/07/19 05:28 Add Manual Diff Complete 04/06/19 11:52 Total Counted 100 04/06/19 11:52 Seg Neutrophils % 82.3 % (40.0-70.0) H 04/07/19 05:28 Seg Neuts % (Manual) 91.0 % (40.0-70.0) H 04/06/19 11:52 8.0 % 04/06/19 11:52 0 % (13.4-35.0) L 04/06/19 11:52 Reactive Lymphs % (Man) 0 % 04/06/19 11:52 1.0 % (0.0-7.3) 04/06/19 11:52 0 % (0.0-4.3) 04/06/19 11:52 0 % (0.0-1.8) 04/06/19 11:52 0 % 04/06/19 11:52 0 % 04/06/19 11:52 0 % 04/06/19 11:52 0 % 04/06/19 11:52 Nucleated RBC % Not Reportable 04/06/19 11:52 Seg Neutrophils # 7.4 K/mm3 (1.8-7.7) 04/07/19 05:28 Seg Neutrophils # Man 13.9 K/mm3 (1.8-7.7) H 04/06/19 11:52 Band Neutrophils # 1.2 K/mm3 04/06/19 11:52 0.0 K/mm3 (1.2-5.4) L 04/06/19 11:52 Abs React Lymphs (Man) 0.0 K/mm3 04/06/19 11:52 0.2 K/mm3 (0.0-0.8) 04/06/19 11:52 0.0 K/mm3 (0.0-0.4) 04/06/19 11:52 0.0 K/mm3 (0.0-0.1) 04/06/19 11:52 0.0 K/mm3 04/06/19 11:52 0.0 K/mm3 04/06/19 11:52 0.0 K/mm3 04/06/19 11:52 Blast Cells # 0.0 K/mm3 04/06/19 11:52 WBC Morphology Not Reportable 04/06/19 11:52 Hypersegmented Neuts Not Reportable 04/06/19 11:52 Hyposegmented Neuts Not Reportable 04/06/19 11:52 Hypogranular Neuts Not Reportable 04/06/19 11:52 Not Reportable 04/06/19 11:52 Not Reportable 04/06/19 11:52 Not Reportable 04/06/19 11:52 Not Reportable 04/06/19 11:52 Not Reportable 04/06/19 11:52 Not Reportable 04/06/19 11:52 Consistent w auto 04/06/19 11:52 Not Reportable 04/06/19 11:52 Plt Clumps, EDTA Not Reportable 04/06/19 11:52 Not Reportable 04/06/19 11:52 Not Reportable 04/06/19 11:52 Not Reportable 04/06/19 11:52 Plt Morphology Comment Not Reportable 04/06/19 11:52 RBC Morphology Normal 04/06/19 11:52 Dimorphic RBCs Not Reportable 04/06/19 11:52 Not Reportable 04/06/19 11:52 Not Reportable 04/06/19 11:52 Not Reportable 04/06/19 11:52 Not Reportable 04/06/19 11:52 Not Reportable 04/06/19 11:52 Not Reportable 04/06/19 11:52 Not Reportable 04/06/19 11:52 Not Reportable 04/06/19 11:52 Not Reportable 04/06/19 11:52 Not Reportable 04/06/19 11:52 Not Reportable 04/06/19 11:52 Not Reportable 04/06/19 11:52 Not Reportable 04/06/19 11:52 Not Reportable 04/06/19 11:52 Not Reportable 04/06/19 11:52 Not Reportable 04/06/19 11:52 Not Reportable 04/06/19 11:52 Not Reportable 04/06/19 11:52 Not Reportable 04/06/19 11:52 Acanthocytes (Spur) Not Reportable 04/06/19 11:52 Rouleaux Not Reportable 04/06/19 11:52 Not Reportable 04/06/19 11:52 Not Reportable 04/06/19 11:52 Not Reportable 04/06/19 11:52 Not Reportable 04/06/19 11:52 Hem Pathologist Commnt No 04/06/19 11:52 Sodium 140 mmol/L (137-145) 04/07/19 05:28 Potassium 3.8 mmol/L (3.6-5.0) 04/07/19 05:28 Chloride 102.9 mmol/L (98-107) 04/07/19 05:28 Carbon Dioxide 28 mmol/L (22-30) 04/07/19 05:28 13 mmol/L 04/07/19 05:28 BUN 32 mg/dL (7-17) H 04/07/19 05:28 1.0 mg/dL (0.7-1.2) 04/07/19 05:28 Estimated GFR > 60 ml/min 04/07/19 05:28 32 % 04/07/19 05:28 Glucose 149 mg/dL (65-100) H 04/07/19 05:28 POC Glucose 165 (70-105) H 04/07/19 11:43 8.6 % (4-6) H 04/06/19 11:52 Lactic Acid 1.80 mmol/L (0.7-2.0) 04/06/19 14:20 Calcium 8.4 mg/dL (8.4-10.2) 04/07/19 05:28 0.50 mg/dL (0.1-1.2) 04/07/19 05:28 AST 11 units/L (5-40) 04/07/19 05:28 ALT 8 units/L (7-56) 04/07/19 05:28 62 units/L (35-129) 04/07/19 05:28 < 0.010 ng/mL (0.00-0.029) 04/06/19 11:52 5.9 g/dL (6.3-8.2) L D 04/07/19 05:28 2.9 g/dL (3.9-5) L 04/07/19 05:28 1.0 % 04/07/19 05:28 TSH 0.520 mlU/mL (0.270-4.200) 04/06/19 12:54 Yellow (Yellow) 04/06/19 13:54 Slightly-cloudy (Clear) 04/06/19 13:54 5.0 (5.0-7.0) 04/06/19 13:54 Ur Specific Ider 1.018 (1.003-1.030) 04/06/19 13:54 <15 mg/dl mg/dL (Negative) 04/06/19 13:54 Neg mg/dL (Negative) 04/06/19 13:54 Neg mg/dL (Negative) 04/06/19 13:54 Neg (Negative) 04/06/19 13:54 Neg (Negative) 04/06/19 13:54 Neg (Negative) 04/06/19 13:54 2.0 mg/dL (<2.0) 04/06/19 13:54 Ur Leukocyte Esterase Sm (Negative) 04/06/19 13:54 13.0 /HPF (0.0-6.0) H 04/06/19 13:54 3.0 /HPF (0.0-6.0) 04/06/19 13:54 U Epithel Cells (Auto) 1.0 /HPF (0-13.0) 04/06/19 13:54 1+ /HPF (Negative) 04/06/19 13:54 Few /HPF 04/06/19 13:54 Presumptive negative 04/06/19 13:54 Presumptive negative 04/06/19 13:54 Ur Barbiturates Screen Presumptive negative 04/06/19 13:54 Ur Phencyclidine Scrn Presumptive negative 04/06/19 13:54 Ur Amphetamines Screen Presumptive negative 04/06/19 13:54 U Benzodiazepines Scrn Presumptive negative 04/06/19 13:54 Presumptive negative 04/06/19 13:54 U Marijuana (THC) Screen Presumptive negative 04/06/19 13:54 Disclamer 04/06/19 13:54 Plasma/Serum Alcohol < 0.01 % (0-0.07) 04/06/19 12:54 Active Medications - Current Medications Current Medications: Generic Name Dose Route Start Last Admin Trade Name Freq PRN Reason Stop Dose Admin Acetaminophen 650 mg 04/06/19 20:53 Tylenol PO Q4H PRN Pain MILD(1-3)/Fever >100.5/BUENO Aspirin 81 mg 04/06/19 21:00 04/07/19 10:02 Baby Aspirin PO 81 mg DAILY KAYLEE Administration Chlorthalidone 25 mg 04/06/19 21:00 04/07/19 10:01 Thalitone PO 25 mg DAILY KAYLEE Administration Enoxaparin Sodium 40 mg 04/07/19 22:00 Lovenox SUB-Q QDAY@2200 KAYLEE Famotidine 20 mg 04/06/19 22:00 04/07/19 10:02 Pepcid PO 20 mg BID KAYLEE Administration Hydromorphone HCl 0.25 mg 04/06/19 20:53 04/06/19 21:43 Dilaudid IV 0.25 mg Q3H PRN Administration Pain, Moderate (4-6) Ceftriaxone Sodium 2 gm in 100 mls @ 200 mls/hr 04/06/19 21:00 04/07/19 10:30 Rocephin/Ns 2 Gm/100 Ml IV 200 mls/hr Q24HR KAYLEE Administration Protocol Sodium Chloride 1,000 mls @ 75 mls/hr 04/06/19 21:00 04/07/19 10:36 Nacl 0.9% 1000 Ml IV 04/07/19 14:00 75 mls/hr DIRECT KAYLEE Administration Ibuprofen 200 mg 04/06/19 20:50 04/07/19 06:14 Ibuprofen PO 200 mg Q12H PRN Administration Pain, Mild (1-3) Insulin Glargine 20 units 04/06/19 22:00 04/07/19 10:01 Lantus SUB-Q 20 units BID KAYLEE Administration Insulin Human Lispro 0 unit 04/06/19 22:00 04/07/19 12:04 Humalog SUB-Q 2 unit ACHS KAYLEE Administration Protocol Ondansetron HCl 4 mg 04/06/19 20:53 Zofran IV Q8H PRN Nausea And Vomiting Sodium Chloride 10 ml 04/06/19 22:00 04/07/19 10:02 Sodium Chloride Flush Syringe 10 Ml IV 10 ml BID KAYLEE Administration Sodium Chloride 10 ml 04/06/19 20:53 Sodium Chloride Flush Syringe 10 Ml IV PRN PRN LINE FLUSH
[2019-04-07] MEDS ORDERED: LOVENOX SUB-Q SCH (22:00)
[2019-04-07] MEDS ORDERED: MIRALAX 3350 PO PRN (22:25)
[2019-04-07] MEDS ORDERED: MILK OF MAGNESIA PO PRN (22:26)
[2019-04-07] MEDS: COLACE PO SCH (22:59)
[2019-04-08] MEDS: HumaLOG SUB-Q SCH ×2 (07:28→11:41)
[2019-04-08] MEDS: BABY ASPIRIN PO SCH (09:43)
[2019-04-08] MEDS: PEPCID PO SCH (09:43)
[2019-04-08] MEDS: COLACE PO SCH (09:43)
[2019-04-08] MEDS: ROCEPHIN/NS 2 GM/100 ML 2 GM/100 ML BAG IV SCH (09:43)
[2019-04-08] MEDS: LANTUS SUB-Q SCH (09:44)
[2019-04-08] MEDS: THALITONE PO SCH (09:44)
[2019-04-08] MEDS ORDERED: HABITROL TD SCH (10:00)
--- NOTE | 2019-04-08 10:34 | Discharge Summary ---
Providers - Providers Date of Admission: 04/06/19 14:00 Date of discharge: 04/08/19 Attending physician: ANA PAULA GUNDERSON Primary care physician: NORMA BREEN Hospitalization Reason for admission: Alteed level of consciousness/UTI Condition: Stable Pertinent studies: X-ray pelvis; no acute injury, osteopenia Lumbosacral spine x-ray; multilevel degenerative changes osteopenia No acute abnormality X-ray chest and abdomen; fecal retention CT Head: No acute abnormality Hospital course: 78-year-old female was admitted through ER from home with complaint of some dizziness, feeling off balance, confusion, abdominal pain, nausea, vomiting. The patient's daughter reports that the patient was fishing about one week ago when she caught a catfish and fell backwards. Since that time he has been complaining of some pain in her backside. The patient's daughter called her this morning and the patient seemed altered or confused. She went over to see her and the patient did appear altered. She was trying to get medication out of an empty bottle. The patient had to hold onto the wall and furniture in order to ambulate around. aaaaaPatient was admitted, symptomatically managed, Initial workup was consistant with UTI,received emperic antibiotics and IV fluids.Symptoms significantly improved,Cultures negative to date. Today patient feels better,no new complaints,vital signs stable,alert and awae responds appropriately,Vital signs stable,physical exam unremarkable.. Smoking cessation advised, Patient is stable at discharge Discharge Diagnosis: --Metabolic encephalopathy; multifactorial, advanced age, dementia probably secondary to sepsis, dehydration, symptoms resolved --Urinary tract infection; continue empiric antibiotics, follow cultures --SIRS; secondary to UTI, continue antibiotics follow cultures --Hypotension; IV fluids, supportive care --Constipation/fecal retention on CT abdomen; stool softeners, milk of magnesia, improved --Type 2 diabetes mellitus; Accu-Chek sliding scale coverage and ADA diet and insulin as needed --Severe malnutrition/hypoalbuminemia; nutrition supplements, nutrition consult as needed --Tobacco use: smoking cessation Stable at discharge Disposition: TO HOME OR SELFCARE Time spent for discharge: 32 min Core Measure Documentation - Palliative Care Palliative Care/ Comfort Measures: Not Applicable - Core Measures Any of the following diagnoses?: none Exam - Constitutional Vitals: Temp Pulse Resp BP Pulse Ox 98.7 F 70 18 97/48 94 04/08/19 07:20 04/08/19 07:20 04/08/19 07:20 04/08/19 07:20 04/08/19 07:20 General appearance: Present: no acute distress, well-nourished - EENT Eyes: Present: PERRL, EOM intact - Neck Neck: Present: supple, normal ROM - Respiratory Respiratory effort: normal Respiratory: bilateral: diminished, negative: rales, rhonchi, wheezing - Cardiovascular Rhythm: regular Heart Sounds: Present: S1 & S2 - Extremities Extremities: no ischemia, No edema - Abdominal General gastrointestinal: Present: soft, non-tender, non-distended, normal bowel sounds - Integumentary Integumentary: Present: clear, warm - Musculoskeletal Musculoskeletal: strength equal bilaterally, generalized weakness - Psychiatric Psychiatric: appropriate mood/affect, cooperative - Neurologic Neurologic: moves all extremities Plan Activity: advance as tolerated, fall precautions Diet: diabetic Additional Instructions: Fall precaution. high-fiber diet, plenty of oral fluids Follow up with: NORMA BREEN MD [Primary Care Provider] - 3-5 Days Prescriptions: Docusate Sodium [Colace CAP] 100 mg PO BID PRN #30 capsule PRN Reason: Constipation Nicotine [Habitrol] 14 mg TD QDAY #30 patch levoFLOXacin [Levaquin TAB] 500 mg PO QDAY #5 tablet Polyethylene Glycol 3350 [Miralax 3350] 17 gm PO QDAY PRN #30 powd.pack PRN Reason: Constipation
[2019-04-08] MEDS ORDERED: DULCOLAX PR PRN (10:35)
[2019-04-08] MEDS ORDERED: DULCOLAX PR ONE (11:00)
[2019-04-08] MEDS ORDERED: MILK OF MAGNESIA PO ONE (11:00)
[2019-04-08] MEDS: SODIUM CHLORIDE FLUSH SYRINGE 10 ML IV SCH (11:06)
[2019-04-08 14:00] VITALS: BP 116/60
== END 2019-04-08 14:00 | disposition home or self-care (01) | DRG 871 ==
LOC: ED 11:28 → 2B-ACE 14:00
PROVIDERS: ADMIT Internal Medicine; ATTEND Internal Medicine
DX: A41.9 Sepsis, unspecified organism (principal); G93.41 Metabolic encephalopathy; E43 Unspecified severe protein-calorie malnutrition; N39.0 Urinary tract infection, site not specified; I10 Essential (primary) hypertension; E86.0 Dehydration; E78.00 Pure hypercholesterolemia, unspecified; E11.9 Type 2 diabetes mellitus without complications; K21.9 Gastro-esophageal reflux disease without esophagitis; F17.210 Nicotine dependence, cigarettes, uncomplicated; Z71.6 Tobacco abuse counseling; Z79.4 Long term (current) use of insulin; Z79.899 Other long term (current) drug therapy; Z68.22 Body mass index [BMI] 22.0-22.9, adult; Z82.49 Family history of ischemic heart disease and other diseases of the circulatory system
CPT/HCPCS: 36415; 70450; 72100; 72170; 74022; 80053; 80307; 80320; 81001; 82140; 82962; 83036; 84443; 84484; 85007; 85025; 87040; 87086; 90732; 93005; 93010; 96365; 96375; 99406; G0378; G0480; J0696; J1170; J1650; J1815; J1885; J1956; J2405; J7030; J7040

== ENCOUNTER 2020-02-06 13:21 | Emergency (ER) | payer MEDICARE ==
[2020-02-06] MEDS ORDERED: IBUPROFEN 800 MG TAB PO ONE (13:35)
[2020-02-06] MEDS ORDERED: HYDROcodone/ACETAMINOPHEN 5-325 MG TAB PO ONE (13:35)
--- NOTE | 2020-02-06 13:51 | Emergency Department Report ---
HPI - General Chief Complaint: Back Pain/Injury Time Seen by Provider: 02/06/20 13:34 - HPI HPI: Room 4 The patient is a 79-year-old female present with a chief complaint of left hip pain. The patient states she has had pain in her left hip for past 1 month. The patient states she had an x-ray performed several weeks ago but did not get the results. Patient denies any recent trauma. Patient states the pain was just bothering her today prompting her to come to the emergency department. Patient denies fever. ED Past Medical Hx - Past Medical History Hx Hypertension: Yes Hx Diabetes: Yes Hx GERD: Yes Hx Arthritis: Yes (legs) Additional medical history: Hypercholesterolemia,vertigo, heart aneurysm - Surgical History Past Surgical History?: Yes Additional Surgical History: Ectopic , tubal ligation - Family History Family history: no significant - Social History Smoking Status: Current Every Day Smoker (Occasional) Substance Use Type: None - Medications Home Medications: Home Medications Medication Instructions Recorded Confirmed Last Taken Type Aspirin [Aspirin BABY CHEW TAB] 81 mg PO DAILY 04/20/15 04/06/19 04/05/19 History Chlorthalidone 25 mg PO DAILY 12/29/18 04/06/19 04/05/19 History Omeprazole 40 mg PO DAILY 12/29/18 04/06/19 04/05/19 History Ibuprofen 200 mg PO Q12HR PRN 04/06/19 04/06/19 Unknown History Insulin Detemir [Levemir VIAL] 20 unit SQ BID 04/06/19 04/06/19 04/05/19 History Docusate Sodium [Colace CAP] 100 mg PO BID PRN #30 capsule 04/08/19 Unknown Rx Nicotine [Habitrol] 14 mg TD QDAY #30 patch 04/08/19 Unknown Rx levoFLOXacin [Levaquin TAB] 500 mg PO QDAY #5 tablet 04/08/19 Unknown Rx polyethylene glycoL 3350 [Miralax 17 gm PO QDAY PRN #30 powd.pack 04/08/19 Unknown Rx 3350] HYDROcodone/APAP 5-325 [Shepherd 1 each PO Q6HR PRN #14 tablet 02/06/20 Unknown Rx 5/325] Ibuprofen [Motrin 800 MG tab] 800 mg PO Q8HR PRN #20 tablet 02/06/20 Unknown Rx ED Review of Systems ROS: Stated complaint: LOWER BACK PAIN/FALL Other details as noted in HPI Musculoskeletal: arthralgia Physical Exam - Physical Exam Vital Signs: Vital Signs 02/06/20 13:28 Temperature 98.4 F Pulse Rate 76 Respiratory 18 Rate Blood Pressure 163/80 O2 Sat by Pulse 95 Oximetry Physical Exam: GENERAL: The patient is well-developed well-nourished female lying on stretcher not appearing to be in acute distress. [] HEENT: Normocephalic. Atraumatic. Extraocular motions are intact. Patient has moist mucous membranes. NECK: Supple. Trachea midline CHEST/LUNGS: Clear to auscultation. There is no respiratory distress noted. HEART/CARDIOVASCULAR: Regular. There is no tachycardia. Dopplerable PT pulse left foot SKIN: There is no rash. There is no edema. There is no diaphoresis. Left foot normothermic with normal capillary refill NEURO: The patient is awake, alert, and oriented. The patient is cooperative. The patient has no focal neurologic deficits. The patient has normal speech MUSCULOSKELETAL: Positive straight leg raise test on the left. There is no evidence of acute injury. ED Course Vital Signs 02/06/20 13:28 Temperature 98.4 F Pulse Rate 76 Respiratory 18 Rate Blood Pressure 163/80 O2 Sat by Pulse 95 Oximetry ED Medical Decision Making - Radiology Data Radiology results: report reviewed (Left hip x-ray), image reviewed (Left hip x- ray) interpreted by me: Left hip x-ray-no acute fracture seen [facility] [address] [place] [address] XRay Report Signed Patient: BOZENA COLON MR#: [id number] : 1940 Acct:[id number] Age/Sex: 79 / F ADM Date: 02/06/20 Loc: ED Attending Dr: Ordering Physician: OLIMPIA VASQUEZ MD Date of Service: 02/06/20 Procedure(s): XR hip 2-3V LT Accession Number(s): [id number] cc: OLIMPIA VASQUEZ MD Fluoro Time In Minutes: Left hip-2 views INDICATION: Pain left hip. COMPARISON: AP pelvis from 04/06/2019 IMPRESSION: No acute osseous or soft tissue abnormality. 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 Signer Name: Roel Fowler MD Signed: 02/06/2020 2:13 PM Workstation Name: [id number] Transcribed By: ALYX Dictated By: Roel Fowler MD Electronically Authenticated By: Roel Fowler MD Signed Date/Time: 02/06/201412 DD/ 12 TD/TT: - Differential Diagnosis Sciatica, occult fracture Critical care attestation.: If time is entered above; I have spent that time in minutes in the direct care of this critically ill patient, excluding procedure time. ED Disposition Clinical Impression: Sciatica Disposition: DC- TO HOME OR SELFCARE Is pt being admited?: No Does the pt Need Aspirin: No Condition: Stable Instructions: Sciatica (ED) Additional Instructions: Return to the emergency department should you develop worsening symptoms, inability to tolerate food or liquids, high fever or any other concerns Prescriptions: Ibuprofen [Motrin 800 MG tab] 800 mg PO Q8HR PRN #20 tablet PRN Reason: Pain, Moderate (4-6) HYDROcodone/APAP 5-325 [Shepherd 5/325] 1 each PO Q6HR PRN #14 tablet PRN Reason: Pain Referrals: LEONARDA TERRELL MD [Staff Physician] - 3-5 Days (Dr. Terrell is an orthopedic surgeon. Please follow-up with him for further evaluation) Time of Disposition: 14:21
--- NOTE | 2020-02-06 14:18 | XRay Report ---
Left hip-2 views INDICATION: Pain left hip. COMPARISON: AP pelvis from 04/06/2019 IMPRESSION: No acute osseous or soft tissue abnormality. 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 Signer Name: Roel Fowler MD Signed: 02/06/2020 2:13 PM Workstation Name: [id number]
[2020-02-06 15:50] VITALS: BP 132/61
== END 2020-02-06 15:51 | disposition home or self-care (01) ==
LOC: ED 13:21
DX: M54.42 Lumbago with sciatica, left side (principal); I10 Essential (primary) hypertension; E11.9 Type 2 diabetes mellitus without complications; M13.88 Other specified arthritis, other site; F17.200 Nicotine dependence, unspecified, uncomplicated; E78.00 Pure hypercholesterolemia, unspecified; Z98.51 Tubal ligation status; Z90.710 Acquired absence of both cervix and uterus; Z88.6 Allergy status to analgesic agent; Z91.030 Bee allergy status; Z91.09 Other allergy status, other than to drugs and biological substances

== ENCOUNTER 2020-03-09 17:53 | Emergency (ER) | payer MEDICARE ==
[2020-03-09 18:04] VITALS: BP 158/78
--- NOTE | 2020-03-09 19:04 | XRay Report ---
BILATERAL HIPS 3 VIEWS INDICATION / CLINICAL INFORMATION: Fall this morning with hip pain. COMPARISON: 02/06/20. FINDINGS: BONES / JOINT(S): There are mild degenerative changes involving both hips. There is mild chondrocalci nosis involving the left hip. Moderate lower lumbar spondylosis is noted. I see no evidence of fractu re or subluxation. SOFT TISSUES: Atherosclerotic calcifications are present. ADDITIONAL FINDINGS: None. IMPRESSION: No acute abnormality. Signer Name: Angel Ying MD Signed: 03/09/2020 7:00 PM Workstation Name: [id number]
[2020-03-09] MEDS ORDERED: MORPHINE 4 MG/1 ML INJ IM ONE (20:01)
[2020-03-09] MEDS ORDERED: ONDANSETRON 4 MG/2 ML INJ IV ONE (20:01)
[2020-03-09] MEDS ORDERED: MORPHINE 4 MG/1 ML INJ ONE (20:05)
[2020-03-09] MEDS ORDERED: ONDANSETRON 4 MG/2 ML INJ ONE (20:05)
--- NOTE | 2020-03-09 20:14 | Emergency Department Report ---
ED General Adult HPI - General Chief complaint: Extremity Injury, Lower Stated complaint: HIP PAIN Time Seen by Provider: 03/09/20 19:54 Source: patient Mode of arrival: Wheelchair Limitations: No Limitations - History of Present Illness Initial comments: Patient is 79 years old female with history of hypertension and diabetes. Patient presented to the ER complaining of left hip pain started this morning. Patient stated that she had a fall in December 2019 and since then she has been having increasing left hip pain especially when she start walking. Patient denied any fever or chills. She denied any recent weight loss. -: This morning Location: back, left, lower extremity Severity scale (0 -10): 10 Quality: burning, stabbing Improves with: none Associated Symptoms: denies other symptoms - Related Data Home Medications Medication Instructions Recorded Confirmed Last Taken Aspirin [Aspirin BABY CHEW TAB] 81 mg PO DAILY 04/20/15 04/06/19 04/05/19 Chlorthalidone 25 mg PO DAILY 12/29/18 04/06/19 04/05/19 Omeprazole 40 mg PO DAILY 12/29/18 04/06/19 04/05/19 Ibuprofen 200 mg PO Q12HR PRN 04/06/19 04/06/19 Unknown Insulin Detemir [Levemir VIAL] 20 unit SQ BID 04/06/19 04/06/19 04/05/19 Previous Rx's Medication Instructions Recorded Last Taken Type Docusate Sodium [Colace CAP] 100 mg PO BID PRN #30 capsule 04/08/19 Unknown Rx Nicotine [Habitrol] 14 mg TD QDAY #30 patch 04/08/19 Unknown Rx levoFLOXacin [Levaquin TAB] 500 mg PO QDAY #5 tablet 04/08/19 Unknown Rx polyethylene glycoL 3350 [Miralax 17 gm PO QDAY PRN #30 powd.pack 04/08/19 Unknown Rx 3350] HYDROcodone/APAP 5-325 [[place] 1 each PO Q6HR PRN #14 tablet 02/06/20 Unknown Rx 5/325] Ibuprofen [Motrin 800 MG tab] 800 mg PO Q8HR PRN #20 tablet 02/06/20 Unknown Rx Allergies Allergy/AdvReac Type Severity Reaction Status Date / Time iodine Allergy Swelling Verified 07/05/15 13:30 lisinopril Allergy Rash Verified 11/23/16 14:01 Penicillins Allergy Rash Verified 07/05/15 13:30 venom-honey bee Allergy Anaphylaxis Verified 07/05/15 13:30 [bee venom (honey bee)] ED Review of Systems ROS: Stated complaint: HIP PAIN Other details as noted in HPI Comment: All other systems reviewed and negative Constitutional: denies: chills, fever Respiratory: denies: cough, shortness of breath, SOB with exertion, wheezing Cardiovascular: denies: chest pain, palpitations Gastrointestinal: denies: abdominal pain, nausea, vomiting Musculoskeletal: back pain Neurological: denies: headache, weakness, numbness, paresthesias, confusion, abnormal gait ED Past Medical Hx - Past Medical History Previous Medical History?: Yes Hx Hypertension: Yes Hx Diabetes: Yes Hx GERD: Yes Hx Arthritis: Yes (legs) Hx HIV: No Additional medical history: Hypercholesterolemia,vertigo, heart aneurysm - Surgical History Past Surgical History?: Yes Additional Surgical History: Ectopic , tubal ligation - Social History Smoking Status: Current Some Day Smoker Substance Use Type: None - Medications Home Medications: Home Medications Medication Instructions Recorded Confirmed Last Taken Type Aspirin [Aspirin BABY CHEW TAB] 81 mg PO DAILY 04/20/15 04/06/19 04/05/19 History Chlorthalidone 25 mg PO DAILY 12/29/18 04/06/19 04/05/19 History Omeprazole 40 mg PO DAILY 12/29/18 04/06/19 04/05/19 History Ibuprofen 200 mg PO Q12HR PRN 04/06/19 04/06/19 Unknown History Insulin Detemir [Levemir VIAL] 20 unit SQ BID 04/06/19 04/06/19 04/05/19 History Docusate Sodium [Colace CAP] 100 mg PO BID PRN #30 capsule 04/08/19 Unknown Rx Nicotine [Habitrol] 14 mg TD QDAY #30 patch 04/08/19 Unknown Rx levoFLOXacin [Levaquin TAB] 500 mg PO QDAY #5 tablet 04/08/19 Unknown Rx polyethylene glycoL 3350 [Miralax 17 gm PO QDAY PRN #30 powd.pack 04/08/19 Unknown Rx 3350] HYDROcodone/APAP 5-325 [[place] 1 each PO Q6HR PRN #14 tablet 02/06/20 Unknown Rx 5/325] Ibuprofen [Motrin 800 MG tab] 800 mg PO Q8HR PRN #20 tablet 02/06/20 Unknown Rx ED Physical Exam - General Limitations: No Limitations General appearance: alert, in no apparent distress - Head Head exam: Present: atraumatic, normocephalic, normal inspection - Eye Eye exam: Present: normal appearance - ENT ENT exam: Present: normal exam, normal orophraynx, mucous membranes moist - Neck Neck exam: Present: normal inspection, full ROM. Absent: tenderness, meningismus - Respiratory Respiratory exam: Present: normal lung sounds bilaterally - Cardiovascular Cardiovascular Exam: Present: regular rate, normal rhythm, normal heart sounds - GI/Abdominal GI/Abdominal exam: Present: soft, normal bowel sounds. Absent: distended, tenderness, guarding, rebound, rigid, organomegaly, mass, bruit, pulsatile mass, hernia - Extremities Exam Extremities exam: Present: normal inspection, full ROM (Left hip with full range of motion.), tenderness (Tenderness to the left gluteal region.), normal capillary refill. Absent: pedal edema, joint swelling, calf tenderness - Back Exam Back exam: Present: normal inspection, full ROM. Absent: CVA tenderness (R), CVA tenderness (L) - Neurological Exam Neurological exam: Present: alert, oriented X3, CN II-XII intact, normal gait, reflexes normal. Absent: motor sensory deficit - Skin Skin exam: Present: warm, intact, normal color ED Course Vital Signs 03/09/20 17:59 Temperature 98.4 F Pulse Rate 90 Respiratory 20 Rate Blood Pressure 158/78 O2 Sat by Pulse 98 Oximetry ED Medical Decision Making - Radiology Data Radiology results: report reviewed - Medical Decision Making Patient is 79 years old female with history of hypertension and diabetes. Patient presented to the ER complaining of left hip pain started this morning. Patient stated that she had a fall in December 2019 and since then she has been having increasing left hip pain especially when she start walking. Patient denied any fever or chills. She denied any recent weight loss. X-ray of the left hip reviewed showed no fracture or dislocation. Patient exam showed focal tenderness in the piriformis muscle area. Left hip with full range of motion. Patient given morphine 4 mg IM and Zofran and patient stated that she is feeling much better. Patient given prescription for prednisone, tramadol and Zofran and advised to follow-up with her primary care physician for further management. Critical care attestation.: If time is entered above; I have spent that time in minutes in the direct care of this critically ill patient, excluding procedure time. ED Disposition Clinical Impression: Piriformis syndrome of left side Disposition: DC-01 TO HOME OR SELFCARE Is pt being admited?: No Condition: Stable Instructions: Piriformis Syndrome (ED) Referrals: LEONARDA MEJÍA MD [Staff Physician] - 3-5 Days
== END 2020-03-09 20:40 | disposition home or self-care (01) ==
LOC: ED 17:53
DX: G57.02 Lesion of sciatic nerve, left lower limb (principal); I10 Essential (primary) hypertension; E11.9 Type 2 diabetes mellitus without complications; F17.200 Nicotine dependence, unspecified, uncomplicated; K21.9 Gastro-esophageal reflux disease without esophagitis; E78.00 Pure hypercholesterolemia, unspecified; Z88.8 Allergy status to other drugs, medicaments and biological substances; Z91.041 Radiographic dye allergy status; Z88.0 Allergy status to penicillin; Z91.048 Other nonmedicinal substance allergy status; Z79.899 Other long term (current) drug therapy; Z98.890 Other specified postprocedural states; Z98.51 Tubal ligation status
CPT/HCPCS: 73521; 96372; 96374; 99283; J2270; J2405

== ENCOUNTER 2020-08-02 20:58 | Emergency (ER) | payer MEDICARE, OTHER ==
[2020-08-02] MEDS ORDERED: LIDOCAINE (1%) 10 MG/1 ML VIAL 20 ML MDV INFILTRATI ONE (22:27)
--- NOTE | 2020-08-02 22:30 | XRay Report ---
RIGHT HAND 3 VIEW(S) INDICATION / CLINICAL INFORMATION: fishook injury, r/o foreign body COMPARISON: None available. FINDINGS: BONES / JOINT(S): No acute fracture or subluxation. Moderate degenerative arthrosis throughout the m[place] nd. SOFT TISSUES: There is a metallic fishhook located within the distal aspect of the small finger. No a dditional radiopaque foreign objects are seen. ADDITIONAL FINDINGS: None. Signer Name: Prashanth Haas MD Signed: 08/02/2020 10:26 PM Workstation Name: [id number]
[2020-08-02] MEDS ORDERED: DIPHtheria,PERTUSSIS(ACELL),TETANUS VACCINE/PF 0.5 ML VIAL IM ONE (23:09)
--- NOTE | 2020-08-02 23:29 | Emergency Department Report ---
ED General Adult HPI - General Chief complaint: Puncture Wound Stated complaint: RT PINKY FINGER FB Time Seen by Provider: 08/02/20 22:26 Source: patient Mode of arrival: Ambulatory Limitations: No Limitations - History of Present Illness Initial comments: 79-year-old -Citizen Of [place] female with history of hypertension and diabetes presents with complaints of fishhook to the right little finger x today. Patient states she was trying to catch her fishing pole before it dropped to the floor and the fishhook stabbed her in the finger. She rates her pain as a 7/10 in severity and denies being on any blood thinners, numbness/tingling/weakness into the finger/hand, or fever/chills/sweats. - Related Data Home Medications Medication Instructions Recorded Confirmed Last Taken Aspirin [Aspirin BABY CHEW TAB] 81 mg PO DAILY 04/20/15 04/06/19 04/05/19 Chlorthalidone 25 mg PO DAILY 12/29/18 04/06/19 04/05/19 Omeprazole 40 mg PO DAILY 12/29/18 04/06/19 04/05/19 Ibuprofen 200 mg PO Q12HR PRN 04/06/19 04/06/19 Unknown Insulin Detemir [Levemir VIAL] 20 unit SQ BID 04/06/19 04/06/19 04/05/19 Previous Rx's Medication Instructions Recorded Last Taken Type Docusate Sodium [Colace CAP] 100 mg PO BID PRN #30 capsule 04/08/19 Unknown Rx Nicotine [Habitrol] 14 mg TD QDAY #30 patch 04/08/19 Unknown Rx levoFLOXacin [Levaquin TAB] 500 mg PO QDAY #5 tablet 04/08/19 Unknown Rx polyethylene glycoL 3350 [Miralax 17 gm PO QDAY PRN #30 powd.pack 04/08/19 Unknown Rx 3350] HYDROcodone/APAP 5-325 [[place] 1 each PO Q6HR PRN #14 tablet 02/06/20 Unknown Rx 5/325] Ibuprofen [Motrin 800 MG tab] 800 mg PO Q8HR PRN #20 tablet 02/06/20 Unknown Rx Ondansetron [Zofran Odt] 4 mg PO Q8HR PRN #14 tab.rapdis 03/09/20 Unknown Rx Prednisone [predniSONE 10 mg 10 mg PO .TAPER #1 tab.ds.pk 03/09/20 Unknown Rx (6-Day Pack, 21 Tabs)] traMADoL [Ultram 50 MG tab] 50 mg PO Q4HR PRN #14 tablet 03/09/20 Unknown Rx Mupirocin [Bactroban 2% OINT] 1 applic TP TID 7 Days #1 tube 08/02/20 Unknown Rx Sulfamethoxazole/Trimethoprim 1 each PO BID 7 Days #14 tablet 08/02/20 Unknown Rx [Bactrim DS TAB] Allergies Allergy/AdvReac Type Severity Reaction Status Date / Time iodine Allergy Swelling Verified 07/05/15 13:30 lisinopril Allergy Rash Verified 11/23/16 14:01 Penicillins Allergy Rash Verified 07/05/15 13:30 venom-honey bee Allergy Anaphylaxis Verified 07/05/15 13:30 [bee venom (honey bee)] ED Review of Systems ROS: Stated complaint: RT PINKY FINGER FB Other details as noted in HPI Constitutional: denies: chills, diaphoresis, fever, malaise Musculoskeletal: denies: joint swelling, arthralgia Skin: as per HPI. denies: change in color Neurological: denies: numbness, paresthesias ED Past Medical Hx - Past Medical History Hx Hypertension: Yes Hx Diabetes: Yes Hx GERD: Yes Hx Arthritis: Yes (legs) Hx HIV: No Additional medical history: Hypercholesterolemia,vertigo, heart aneurysm - Surgical History Additional Surgical History: Ectopic , tubal ligation - Social History Smoking Status: Current Every Day Smoker Substance Use Type: None - Medications Home Medications: Home Medications Medication Instructions Recorded Confirmed Last Taken Type Aspirin [Aspirin BABY CHEW TAB] 81 mg PO DAILY 04/20/15 04/06/19 04/05/19 History Chlorthalidone 25 mg PO DAILY 12/29/18 04/06/19 04/05/19 History Omeprazole 40 mg PO DAILY 12/29/18 04/06/19 04/05/19 History Ibuprofen 200 mg PO Q12HR PRN 04/06/19 04/06/19 Unknown History Insulin Detemir [Levemir VIAL] 20 unit SQ BID 04/06/19 04/06/19 04/05/19 History Docusate Sodium [Colace CAP] 100 mg PO BID PRN #30 capsule 04/08/19 Unknown Rx Nicotine [Habitrol] 14 mg TD QDAY #30 patch 04/08/19 Unknown Rx levoFLOXacin [Levaquin TAB] 500 mg PO QDAY #5 tablet 04/08/19 Unknown Rx polyethylene glycoL 3350 [Miralax 17 gm PO QDAY PRN #30 powd.pack 04/08/19 Unknown Rx 3350] HYDROcodone/APAP 5-325 [[place] 1 each PO Q6HR PRN #14 tablet 02/06/20 Unknown Rx 5/325] Ibuprofen [Motrin 800 MG tab] 800 mg PO Q8HR PRN #20 tablet 02/06/20 Unknown Rx Ondansetron [Zofran Odt] 4 mg PO Q8HR PRN #14 tab.rapdis 03/09/20 Unknown Rx Prednisone [predniSONE 10 mg 10 mg PO .TAPER #1 tab.ds.pk 03/09/20 Unknown Rx (6-Day Pack, 21 Tabs)] traMADoL [Ultram 50 MG tab] 50 mg PO Q4HR PRN #14 tablet 03/09/20 Unknown Rx Mupirocin [Bactroban 2% OINT] 1 applic TP TID 7 Days #1 tube 08/02/20 Unknown Rx Sulfamethoxazole/Trimethoprim 1 each PO BID 7 Days #14 tablet 08/02/20 Unknown Rx [Bactrim DS TAB] ED Physical Exam - General Limitations: No Limitations General appearance: alert, in no apparent distress - Head Head exam: Present: atraumatic, normocephalic - Eye Eye exam: Present: normal appearance. Absent: scleral icterus - Respiratory Respiratory exam: Absent: respiratory distress - Cardiovascular Cardiovascular Exam: Present: regular rate, normal rhythm. Absent: systolic murmur, diastolic murmur, rubs, gallop - Neurological Exam Neurological exam: Present: alert, oriented X3, normal gait, other (Small bhandari fishhook noted to right anterior little finger with the endpoint of the hook being embedded into the finger; patient has normal perfusion and range of motion of the finger along with normal sensation) - Psychiatric Psychiatric exam: Present: normal affect, normal mood - Skin Skin exam: Present: warm, dry, normal color. Absent: rash, cyanosis, diaphoretic, erythema, ecchymosis ED Course Vital Signs 08/02/20 21:10 Temperature 98.5 F Pulse Rate 96 H Respiratory 18 Rate Blood Pressure 97/59 O2 Sat by Pulse 96 Oximetry - Procedure Description Procedures done: Right little finger. Area prepped with Betadine and sterile dr nikki placed. Digital block of the finger performed using 1% lidocaine without epi, 6 cc. 0.5 cm incision made to the anterior portion of the little finger using a 10 blade. Forceps used to remove fishhook. Coleridge was removed without difficulty with minimal bleeding. 1 single simple absorbable suture placed. Patient has normal perfusion and range of motion of the finger post procedure. She tolerated procedure well. ED Medical Decision Making - Radiology Data Radiology results: report reviewed - Medical Decision Making 79-year-old -Citizen Of [place] female with history of hypertension and diabetes presents with complaints of fishhook to the right little finger x today. Patient states she was trying to catch her fishing pole before it dropped to the floor and the fishhook stabbed her in the finger. She rates her pain as a 7/10 in severity and denies being on any blood thinners, numbness/tingling/weakness into the finger/hand, or fever/chills/sweats. Coleridge removed without any immediate complications. Tetanus vaccination updated patient tolerated procedure well. Her vitals are normal, she is well- appearing, and she is stable for discharge home. Prescription for Keflex and Bactroban given. Patient to follow-up with her primary care provider in 3 to 5 days. Discussed wound care and strict return precautions in detail patient verbalized understanding. Critical care attestation.: If time is entered above; I have spent that time in minutes in the direct care of this critically ill patient, excluding procedure time. ED Disposition Clinical Impression: Fish hook injury of finger of right hand Qualifiers: Encounter type: initial encounter Qualified Code(s): S69.91XA - Unspecified injury of right wrist, hand and finger(s), initial encounter Disposition: DC- TO HOME OR SELFCARE Is pt being admited?: No Condition: Stable Instructions: Laceration (ED), Suture Care (ED) Prescriptions: Sulfamethoxazole/Trimethoprim [Bactrim DS TAB] 1 each PO BID 7 Days #14 tablet Mupirocin [Bactroban 2% OINT] 1 applic TP TID 7 Days #1 tube Referrals: PRIMARY CARE, [Primary Care Provider] - 3-5 Days
[2020-08-03 01:30] VITALS: BP 154/85
== END 2020-08-02 23:35 | disposition home or self-care (01) ==
LOC: ED 20:58
DX: S60.456A Superficial foreign body of right little finger, initial encounter (principal); I10 Essential (primary) hypertension; E11.9 Type 2 diabetes mellitus without complications; K21.9 Gastro-esophageal reflux disease without esophagitis; M19.91 Primary osteoarthritis, unspecified site; F17.200 Nicotine dependence, unspecified, uncomplicated; Z98.51 Tubal ligation status; Z98.890 Other specified postprocedural states; Z79.1 Long term (current) use of non-steroidal anti-inflammatories (NSAID); Z79.4 Long term (current) use of insulin; Z79.899 Other long term (current) drug therapy; Z88.0 Allergy status to penicillin; Z88.8 Allergy status to other drugs, medicaments and biological substances; Z91.030 Bee allergy status; X58.XXXA Exposure to other specified factors, initial encounter; Y93.89 Activity, other specified; Y92.89 Other specified places as the place of occurrence of the external cause; Y99.8 Other external cause status
CPT/HCPCS: 90471; 90715

== ENCOUNTER 2020-08-19 16:54 | Emergency (ER) | payer MEDICARE ==
--- NOTE | 2020-08-19 18:21 | XRay Report ---
LEFT FOOT 2 VIEWS INDICATION / CLINICAL INFORMATION: R/O foreign body. COMPARISON: None available. FINDINGS: Mild degenerative change in the first metatarsophalangeal joint. No other significant skeletal abnorm ality. No radiopaque foreign body identified Signer Name: Marciano Haas MD FACCarey Signed: 08/19/2020 6:16 PM Workstation Name: [id number]
[2020-08-19] MEDS ORDERED: IBUPROFEN 600 MG TAB PO ONE (21:27)
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
[2020-08-19 23:38] VITALS: BP 148/88
== END 2020-08-19 22:10 | disposition home or self-care (01) ==
LOC: ED 16:54
DX: L03.116 Cellulitis of left lower limb (principal); I10 Essential (primary) hypertension; E11.9 Type 2 diabetes mellitus without complications; K21.9 Gastro-esophageal reflux disease without esophagitis; M19.90 Unspecified osteoarthritis, unspecified site; F17.200 Nicotine dependence, unspecified, uncomplicated; Z98.51 Tubal ligation status; Z79.82 Long term (current) use of aspirin; Z79.4 Long term (current) use of insulin; Z79.899 Other long term (current) drug therapy; Z88.0 Allergy status to penicillin; Z88.8 Allergy status to other drugs, medicaments and biological substances
CPT/HCPCS: 99283

== ENCOUNTER 2022-06-14 12:11 | Emergency (ER) | payer MEDICARE ==
--- NOTE | 2022-06-14 18:57 | Emergency Department Report ---
ED General Adult HPI - General Chief complaint: Extremity Problem,Nontraumatic Stated complaint: BODY PAIN UNSTABLE WHILE WALKING Time Seen by Provider: 06/14/22 18:50 Source: patient Mode of arrival: Ambulatory Limitations: No Limitations - History of Present Illness Initial comments: 81-year-old -[place] female with history of diabetes arthritis, reports that Hallie fell and fell onto her back approximately 2 weeks ago. She states that she has been having pain since then. Denies having any weakness. Denies have any head trauma. Denies having any neck trauma or neck pain. -: Sudden, week(s) Location: back Radiation: non-radiation Severity scale (0 -10): 2 Consistency: intermittent Improves with: none Worsens with: none Associated Symptoms: denies other symptoms. denies: confusion, chest pain, headaches Treatments Prior to Arrival: none - Related Data Home Medications Medication Instructions Recorded Confirmed Last Taken Aspirin [Aspirin BABY CHEW TAB] 81 mg PO DAILY 04/20/15 04/06/19 04/05/19 Chlorthalidone 25 mg PO DAILY 12/29/18 04/06/19 04/05/19 Omeprazole 40 mg PO DAILY 12/29/18 04/06/19 04/05/19 Ibuprofen 200 mg PO Q12HR PRN 04/06/19 04/06/19 Unknown Insulin Detemir [Levemir VIAL] 20 unit SQ BID 04/06/19 04/06/19 04/05/19 Previous Rx's Medication Instructions Recorded Last Taken Type Docusate Sodium [Colace CAP] 100 mg PO BID PRN #30 capsule 04/08/19 Unknown Rx Nicotine [Habitrol] 14 mg TD QDAY #30 patch 04/08/19 Unknown Rx levoFLOXacin [Levaquin TAB] 500 mg PO QDAY #5 tablet 04/08/19 Unknown Rx polyethylene glycoL 3350 [Miralax 17 gm PO QDAY PRN #30 powd.pack 04/08/19 Unknown Rx 3350] HYDROcodone/APAP 5-325 [[place] 1 each PO Q6HR PRN #14 tablet 02/06/20 Unknown Rx 5/325] Ibuprofen [Motrin 800 MG tab] 800 mg PO Q8HR PRN #20 tablet 02/06/20 Unknown Rx Ondansetron [Zofran Odt] 4 mg PO Q8HR PRN #14 tab.rapdis 03/09/20 Unknown Rx Prednisone [predniSONE 10 mg 10 mg PO .TAPER #1 tab.ds.pk 03/09/20 Unknown Rx (6-Day Pack, 21 Tabs)] traMADoL [Ultram 50 MG tab] 50 mg PO Q4HR PRN #14 tablet 03/09/20 Unknown Rx Mupirocin [Bactroban 2% OINT] 1 applic TP TID 7 Days #1 tube 08/02/20 Unknown Rx Sulfamethoxazole/Trimethoprim 1 each PO BID 7 Days #14 tablet 08/02/20 Unknown Rx [Bactrim DS TAB] Clindamycin [Clindamycin CAP] 300 mg PO Q8H 10 Days #30 cap 08/19/20 Unknown Rx Meloxicam [Mobic] 7.5 mg PO QDAY #30 tablet 08/19/20 Unknown Rx Allergies Allergy/AdvReac Type Severity Reaction Status Date / Time iodine Allergy Swelling Verified 07/05/15 13:30 lisinopril Allergy Rash Verified 11/23/16 14:01 Penicillins Allergy Rash Verified 07/05/15 13:30 venom-honey bee Allergy Anaphylaxis Verified 07/05/15 13:30 [bee venom (honey bee)] ED Review of Systems ROS: Stated complaint: BODY PAIN UNSTABLE WHILE WALKING Other details as noted in HPI Constitutional: no symptoms reported, chills ENT: as per HPI Respiratory: no symptoms reported Cardiovascular: as per HPI ED Past Medical Hx - Past Medical History Hx Hypertension: Yes Hx Diabetes: Yes Hx GERD: Yes Hx Arthritis: Yes (legs) Hx HIV: No Additional medical history: Hypercholesterolemia,vertigo, heart aneurysm - Surgical History Additional Surgical History: Ectopic , tubal ligation - Social History Smoking Status: Current Every Day Smoker Substance Use Type: None - Medications Home Medications: Home Medications Medication Instructions Recorded Confirmed Last Taken Type Aspirin [Aspirin BABY CHEW TAB] 81 mg PO DAILY 04/20/15 04/06/19 04/05/19 History Chlorthalidone 25 mg PO DAILY 12/29/18 04/06/19 04/05/19 History Omeprazole 40 mg PO DAILY 12/29/18 04/06/19 04/05/19 History Ibuprofen 200 mg PO Q12HR PRN 04/06/19 04/06/19 Unknown History Insulin Detemir [Levemir VIAL] 20 unit SQ BID 04/06/19 04/06/19 04/05/19 History Docusate Sodium [Colace CAP] 100 mg PO BID PRN #30 capsule 04/08/19 Unknown Rx Nicotine [Habitrol] 14 mg TD QDAY #30 patch 04/08/19 Unknown Rx levoFLOXacin [Levaquin TAB] 500 mg PO QDAY #5 tablet 04/08/19 Unknown Rx polyethylene glycoL 3350 [Miralax 17 gm PO QDAY PRN #30 powd.pack 04/08/19 Unknown Rx 3350] HYDROcodone/APAP 5-325 [[place] 1 each PO Q6HR PRN #14 tablet 02/06/20 Unknown Rx 5/325] Ibuprofen [Motrin 800 MG tab] 800 mg PO Q8HR PRN #20 tablet 02/06/20 Unknown Rx Ondansetron [Zofran Odt] 4 mg PO Q8HR PRN #14 tab.rapdis 03/09/20 Unknown Rx Prednisone [predniSONE 10 mg 10 mg PO .TAPER #1 tab.ds.pk 03/09/20 Unknown Rx (6-Day Pack, 21 Tabs)] traMADoL [Ultram 50 MG tab] 50 mg PO Q4HR PRN #14 tablet 03/09/20 Unknown Rx Mupirocin [Bactroban 2% OINT] 1 applic TP TID 7 Days #1 tube 08/02/20 Unknown Rx Sulfamethoxazole/Trimethoprim 1 each PO BID 7 Days #14 tablet 08/02/20 Unknown Rx [Bactrim DS TAB] Clindamycin [Clindamycin CAP] 300 mg PO Q8H 10 Days #30 cap 08/19/20 Unknown Rx Meloxicam [Mobic] 7.5 mg PO QDAY #30 tablet 08/19/20 Unknown Rx ED Physical Exam - General Limitations: No Limitations General appearance: alert, in no apparent distress - Head Head exam: Present: atraumatic, normocephalic - Eye Eye exam: Present: normal appearance - ENT ENT exam: Present: mucous membranes moist - Neck Neck exam: Present: normal inspection - Respiratory Respiratory exam: Present: normal lung sounds bilaterally. Absent: respiratory distress - Cardiovascular Cardiovascular Exam: Present: regular rate, normal rhythm. Absent: systolic murmur, diastolic murmur, rubs, gallop - GI/Abdominal GI/Abdominal exam: Present: soft, normal bowel sounds. Absent: distended, tenderness, guarding - Extremities Exam Extremities exam: Present: normal inspection, full ROM. Absent: tenderness - Back Exam Back exam: Present: normal inspection, full ROM. Absent: tenderness, CVA tenderness (R), CVA tenderness (L), muscle spasm, vertebral tenderness - Neurological Exam Neurological exam: Present: alert, oriented X3 - Psychiatric Psychiatric exam: Present: normal affect, normal mood - Skin Skin exam: Present: warm, dry, intact, normal color. Absent: rash ED Course Vital Signs 06/14/22 13:04 Temperature 98.0 F Pulse Rate 86 Respiratory 16 Rate Blood Pressure 142/74 [Right] O2 Sat by Pulse 98 Oximetry ED Medical Decision Making - Lab Data Vital Signs 06/14/22 13:04 Temperature 98.0 F Pulse Rate 86 Respiratory 16 Rate Blood Pressure 142/74 [Right] O2 Sat by Pulse 98 Oximetry - Radiology Data Radiology results: report reviewed [facility] [address] [place] [address] XRay Report Signed Patient: KRIS COLON MR#: [id number] : 1940 Acct:[id number] Age/Sex: 81 / F ADM Date: 06/14/22 Loc: ED Attending Dr: Ordering Physician: VÍCTOR NIELSON MD Date of Service: 06/14/22 Procedure(s): XR spine lumbosacral 2-3V Accession Number(s): [id number] cc: VÍCTOR NIELSON MD Fluoro Time In Minutes: LUMBOSACRAL SPINE, 2 VIEWS INDICATION / CLINICAL INFORMATION: trauma. Patient states ceiling fell on her 3 weeks ago COMPARISON: Prior radiographs 04/06/2019 FINDINGS: No acute fracture or traumatic malalignment is noted. There is mild to moderate degenerative disc disease at L5-S1, with mild degenerative disc disease L3-L4. Alignment is normal. Facet degenerative change of the lower lumbar spine is noted. There is marked aortoiliac vascular calcification. IMPRESSION: 1. Multilevel degenerative disc disease and associated spondylitic change. 2. No acute fracture or traumatic malalignment. 3. Marked aortoiliac vascular calcification. Signer Name: Celeste Vidal MD Signed: 06/14/2022 7:45 PM Workstation Name: [id number] Transcribed By: JR Dictated By: Celeste Vidal MD Electronically Authenticated By: Celeste Vidal MD Signed Date/Time: 06/14/221944 DD/ 41 TD/TT: Critical care attestation.: If time is entered above; I have spent that time in minutes in the direct care of this critically ill patient, excluding procedure time. ED Disposition Clinical Impression: Contusion, back Qualifiers: Encounter type: initial encounter Laterality: unspecified laterality Qualified Code(s): S20.229A - Contusion of unspecified back wall of thorax, initial encounter Disposition: 01 HOME / SELF CARE / HOMELESS Is pt being admited?: No Does the pt Need Aspirin: No Condition: Stable Instructions: Contusion, [id number], How to Use Cold Therapy Referrals: NORMA BREEN MD [Primary Care Provider] - 3-5 Days
--- NOTE | 2022-06-14 19:49 | XRay Report ---
LUMBOSACRAL SPINE, 2 VIEWS INDICATION / CLINICAL INFORMATION: trauma. Patient states ceiling fell on her 3 weeks ago COMPARISON: Prior radiographs 04/06/2019 FINDINGS: No acute fracture or traumatic malalignment is noted. There is mild to moderate degenerative disc dis ease at L5-S1, with mild degenerative disc disease L3-L4. Alignment is normal. Facet degenerative trino nge of the lower lumbar spine is noted. There is marked aortoiliac vascular calcification. IMPRESSION: 1. Multilevel degenerative disc disease and associated spondylitic change. 2. No acute fracture or traumatic malalignment. 3. Marked aortoiliac vascular calcification. Signer Name: Celeste Vidal MD Signed: 06/14/2022 7:45 PM Workstation Name: [id number]
[2022-06-15 01:15] VITALS: BP 137/77
== END 2022-06-15 01:15 | disposition home or self-care (01) ==
LOC: ED 12:11
DX: S20.229A Contusion of unspecified back wall of thorax, initial encounter (principal); I10 Essential (primary) hypertension; E11.9 Type 2 diabetes mellitus without complications; K21.9 Gastro-esophageal reflux disease without esophagitis; F17.200 Nicotine dependence, unspecified, uncomplicated; Z88.0 Allergy status to penicillin; Z91.030 Bee allergy status; Z91.048 Other nonmedicinal substance allergy status; Z91.09 Other allergy status, other than to drugs and biological substances; W19.XXXA Unspecified fall, initial encounter; Y93.89 Activity, other specified; Y92.89 Other specified places as the place of occurrence of the external cause; Y99.8 Other external cause status
CPT/HCPCS: 72100; 99283